=== PATIENT | female | born 1940 | race Caucasian/White ===

== ENCOUNTER → 2016-11-29 | Outpatient (CLI) | payer BC ==
[~2016-11-29] MED LIST: ANT25 PO; ASPI81TA28 PO; CHOL200010 PO; LACT1CAP6 PO; LISI-787 PO; LSN/10125 PO; MAGN250T3 PO; METO1TAB31 PO; RALO60TA12 PO
--- NOTE | 2016-11-29 16:37 | MAMMOGRAPHY REPORT ---
BILATERAL DIGITAL SCREENING MAMMOGRAM WITH CAD: 11/29/2016 CLINICAL HISTORY: Routine screening. Patient has no complaints. TECHNIQUE: Bilateral CC and MLO views were obtained. Current study was also evaluated with a Comput er Aided Detection (CAD) system. COMPARISON: Comparison is made to exams dated: 11/27/2015 mammogram, 10/07/2014 mammogram, 10/04/2013 mammogram, 10/03/2012 mammogram, and 09/27/2010 mammogram - [facility] [address] BREAST COMPOSITION: There are scattered areas of fibroglandular density in both breasts. FINDINGS: There are a few benign rim calcifications and moderate vascular calcifications in the jose sts. No suspicious mass, architectural distortion or cluster of new suspicious microcalcifications is seen. IMPRESSION: ACR BI-RADS CATEGORY 1: NEGATIVE There is no mammographic evidence of malignancy. A 1 year screening mammogram is recommended. The p atient will receive written notification of the results. Approximately 10% of breast cancers are not detected with mammography. A negative mammographic repor t should not delay biopsy if a clinically suggestive mass is present. Ximena Serna M.D. ay/:11/29/2016 14:58:16 Associate Financial Advisor: Debi Davenport, [facility] [address] letter sent: Normal 1/2 BI-RADS Code: ACR BI-RADS Category 1: Negative
== END | disposition home or self-care (01) ==
LOC: C.MAMM 09:27
PROVIDERS: ATTEND Family Medicine
DX: Z12.31 Encounter for screening mammogram for malignant neoplasm of breast (principal)

== ENCOUNTER 2017-05-06 10:11 | Emergency (ER) | payer BC ==
[~2017-05-06] VITALS: Ht 157.5 cm; Wt 60.1 kg
[~2017-05-06 10:11] MED LIST changes: -ANT25 PO; -LACT1CAP6 PO; -LISI-787 PO; -LSN/10125 PO; +METO-478 PO; -METO1TAB31 PO; -RALO60TA12 PO; +RALO60TA30 PO
[2017-05-06 10:21] VITALS: TEMP 36.7; Ht 157.5 cm; Wt 60.1 kg
[2017-05-06] MEDS ORDERED: METOCLOPRAMIDE HCL INJ 5 MG/ML 2 ML VIAL IV STA (10:50)
[2017-05-06] MEDS ORDERED: SODIUM CHLORIDE 0.9% 1000ML 1,000 ML IV STA (10:50)
--- NOTE | 2017-05-06 10:52 | EMERGENCY ROOM VISIT NOTE ---
History Report prepared by Monae: Norbert Ball Under the Supervision of: Dr. Guero Lam M.D. First contact with patient: 10:32 Chief Complaint: ABDOMINAL PAIN Stated Complaint: LOWER LEFT ABDOMINAL PAIN Nursing Triage Summary: Pain in left abdomen, started , pain 8/10. PTS Son reports pt passed out on Monday, refused to come to hospital at the time, had f/u appt with pcp, did not tell pcp about pain at that time. Pt verbalizes nausea, no vomiting. Reports since whenever she eats she immediately has to move her bowels, formed small stools. In triage pt reports she feels dizzy intermittently. Hx of colonoscopy, dx with diverticulosis in March. History of Present Illness The patient is a 76 year old female who presents to the Emergency Room with complaints of left sided upper abdominal pain that began two days ago. She rates her pain an 8/10 in severity. Per the patient's son, she passed out 1 week ago but refused to come to the hospital at that time. She was at her grandson's T-ball game for two hours. She received an ECG at her PCP office two days ago. She notes that whenever she eats, she has to pass her bowels immediately. She still has her appendix, gallbladder, and uterus. Her pain worsens with touch. She is also experiencing some nausea. She denies any vomiting or rash. She has a history of diverticulitis and a previous back surgery. Source of History: patient Onset: two days ago Position: abdomen (LUQ) Symptom Intensity: 8/10 Quality: sharp Timing: constant Modifying Factors (Worsening): other (touch) Associated Symptoms: + nausea, No vomiting, No rash Review of Systems See HPI for pertinent positives & negatives. A total of 10 systems reviewed and were otherwise negative. Past Medical & Surgical Medical Problems: (1) Chest pain (2) HTN (hypertension) (3) Scoliosis Surgical Problems: (1) History of back surgery Family History No pertinent family history Social History Smoking Status: Never Smoker Alcohol Use: none Drug Use: none Marital Status: single Housing Status: lives alone Occupation Status: retired Current/Historical Medications Scheduled Aspirin (Aspirin Ec), 81 MG PO QAM Cholecalciferol (Vitamin D), 2,000 UNIT PO QAM Hctz/Lisinopril (Lisinopril/Hctz 10/12.5 Mg), 1 TAB PO QAM Magnesium (Magnesium 250 mg), 250 MG PO QAM Raloxifene Hcl (Evista), 60 MG PO QAM Allergies Coded Allergies: Sulfa Drugs (Verified Allergy, Unknown, 05/06/17) Physical Exam Vital Signs Date Time Temp Pulse Resp B/P (MAP) Pulse Ox O2 Delivery O2 Flow Rate FiO2 05/06/17 13:50 95 18 148/88 100 Room Air 05/06/17 12:11 88 21 99 05/06/17 12:10 86 05/06/17 12:01 145/78 05/06/17 11:39 98 Room Air 05/06/17 10:21 36.7 86 18 154/92 100 Room Air Physical Exam GENERAL: Patient is a healthy-appearing well-nourished [] HEAD: Normocephalic atraumatic EYES: Ocular movements intact pupils equal and react to light OROPHARYNX mucous membranes are moist no exudates present no erythema or edema present NECK: Supple no nuchal rigidity CHEST: Good equal expansion LUNGS: Clear and equal to auscultation CARDIAC: Normal S1 and S2 ABDOMEN: Soft, exquisitely tender to LUQ with light palpation, no guarding BACK: No CVA tenderness EXTREMITIES: No pain upon palpation normal muscle strength in all groups no clubbing cyanosis or edema NEURO: Patient is following commands and answering questions appropriately. Alert and oriented x3 Cranial Nerves 2-12 grossly intact Medical Decision & Procedures ER Provider Diagnostic Interpretation: Radiology results as stated below per my review and radiologist interpretation: CHEST ONE VIEW PORTABLE CLINICAL HISTORY: CHEST PAIN dyspnea COMPARISON STUDY: 03/03/2016 FINDINGS: The bones soft tissues and hemidiaphragms are normal. The cardiomediastinal silhouette is normal. The lungs are clear. The pulmonary vasculature is normal. Pre-existing thoracolumbar stephanie stabilization procedure of the spine. IMPRESSION: No acute process Electronically signed by: Chapin Lese M.D. 05/06/2017 11:19 AM Dictated Date/Time: 05/06/2017 11:18 AM ABDOMEN AND PELVIS CT WITH IV AND ORAL CONTRAST CT DOSE: 311.06 mGy.cm HISTORY: Pain. Nausea. Pt c/o LUQ abd pain TECHNIQUE: Multiaxial CT images of the abdomen and pelvis were performed following the use of intravenous and oral contrast. COMPARISON STUDY: 03/14/2008 FINDINGS: Lung bases are clear. Findings of reconstructive type stabilization procedure's of the lumbosacral spine. Old posterior back and a postoperative change due to the bony pelvis. Liver enhances uniformly as does the spleen. Kidneys negative for mass or hydronephrosis. Mild small bowel fullness suggesting a mild nonspecific enteritis. The colonic bowel pattern is nonobstructive. Bladder is midline. IMPRESSION: 1. Mild nonspecific small bowel enteritis. 2. Otherwise no acute process of the abdomen or pelvis. 3. Unchanging postoperative changes to the thoracolumbar spine and bony pelvis. Electronically signed by: Chapin Lees M.D. 05/06/2017 1:23 PM Dictated Date/Time: 05/06/2017 1:20 PM Laboratory Results 05/06/17 11:00 Red Blood Count 3.97, Mean Corpuscular Volume 93.7, Mean Corpuscular Hemoglobin 31.7, Mean Corpuscular Hemoglobin Concent 33.9, Mean Platelet Volume 9.7, Neutrophils (%) (Auto) 73.1, Lymphocytes (%) (Auto) 17.0, Monocytes (%) (Auto) 9.2, Eosinophils (%) (Auto) 0.0, Basophils (%) (Auto) 0.5, Neutrophils # (Auto) 4.30, Lymphocytes # (Auto) 1.00, Monocytes # (Auto) 0.54, Eosinophils # (Auto) 0.00, Basophils # (Auto) 0.03 05/06/17 11:00 Test 05/06/17 10:45 05/06/17 11:00 05/06/17 14:45 Urine Color YELLOW Urine Appearance CLEAR (CLEAR) Urine pH 6.0 (4.5-7.5) Urine Specific [place]well 1.019 (1.000-1.030) Urine Protein NEG (NEG) Urine Glucose (UA) NEG (NEG) Urine Ketones NEG (NEG) Urine Occult Blood NEG (NEG) Urine Nitrite NEG (NEG) Urine Bilirubin NEG (NEG) Urine Urobilinogen NEG (NEG) Urine Leukocyte Esterase TRACE (NEG) Urine WBC (Auto) 1-5 /hpf (0-5) Urine RBC (Auto) 0-4 /hpf (0-4) Urine Hyaline Casts (Auto) 1-5 /lpf (0-5) Urine Epithelial Cells (Auto) 10-20 /lpf (0-5) Urine Bacteria (Auto) NEG (NEG) White Blood Count 5.88 K/uL (4.8-10.8) Red Blood Count 3.97 M/uL (4.2-5.4) Hemoglobin 12.6 g/dL (12.0-16.0) Hematocrit 37.2 % (37-47) Mean Corpuscular Volume 93.7 fL (80-100) Mean Corpuscular Hemoglobin 31.7 pg (25-34) Mean Corpuscular Hemoglobin Concent 33.9 g/dl (32-36) Platelet Count 266 K/uL (130-400) Mean Platelet Volume 9.7 fL (7.4-10.4) Neutrophils (%) (Auto) 73.1 % Lymphocytes (%) (Auto) 17.0 % Monocytes (%) (Auto) 9.2 % Eosinophils (%) (Auto) 0.0 % Basophils (%) (Auto) 0.5 % Neutrophils # (Auto) 4.30 K/uL (1.4-6.5) Lymphocytes # (Auto) 1.00 K/uL (1.2-3.4) Monocytes # (Auto) 0.54 K/uL (0.11-0.59) Eosinophils # (Auto) 0.00 K/uL (0-0.5) Basophils # (Auto) 0.03 K/uL (0-0.2) RDW Standard Deviation 45.0 fL (36.4-46.3) RDW Coefficient of Variation 13.0 % (11.5-14.5) Immature Granulocyte % (Auto) 0.2 % Immature Granulocyte # (Auto) 0.01 K/uL (0.00-0.02) Anion Gap 9.0 mmol/L (3-11) Est Creatinine Clear Calc Drug Dose 42.9 ml/min Estimated GFR () 72.0 Estimated GFR (Non- 62.2 BUN/Creatinine Ratio 16.3 (10-20) Calcium Level 8.5 mg/dl (8.5-10.1) Total Bilirubin 0.6 mg/dl (0.2-1) Direct Bilirubin 0.2 mg/dl (0-0.2) Aspartate Amino Transf (AST/SGOT) 24 U/L (15-37) Alanine Aminotransferase (ALT/SGPT) 22 U/L (12-78) Alkaline Phosphatase 47 U/L (45-117) Total Creatine Kinase 86 U/L (26-192) Creatine Kinase MB 1.9 ng/ml (0.5-3.6) Creatine Kinase MB Ratio 2.2 (0-3.0) Troponin I < 0.015 ng/ml (0-0.045) Total Protein 7.9 gm/dl (6.4-8.2) Albumin 3.7 gm/dl (3.4-5.0) Lipase 216 U/L (73-393) Labs reviewed by ED physician. Medications Administered Medications (Trade) Dose Ordered Sig/Kerri Route Start Time Stop Time Status Last Admin Dose Admin Sodium Chloride 1,000 ml @ 999 mls/hr Q1H1M STAT IV 05/06/17 10:50 05/06/17 11:50 DC 05/06/17 11:00 999 MLS/HR Metoclopramide HCl (Reglan Inj) 10 mg NOW STAT IV 05/06/17 10:50 05/06/17 10:52 DC 05/06/17 11:00 10 MG Famotidine (Pepcid Tab) 20 mg NOW STAT PO 05/06/17 13:44 05/06/17 13:45 DC 05/06/17 14:36 20 MG Sucralfate (Carafate Tab) 1 gm NOW STAT PO 05/06/17 13:44 05/06/17 13:45 DC 05/06/17 14:39 1 GM Cholestyramine Resin (Questran Powder Light) 4 gm NOW STAT PO 05/06/17 13:51 05/06/17 13:52 DC 05/06/17 14:36 4 GM Al Hydroxide/Mg Hydroxide (Maalox Susp) 30 ml STK-MED ONCE .ROUTE 05/06/17 14:31 05/06/17 14:32 DC 05/06/17 14:37 30 ML Lidocaine HCl (Viscous Lidocaine 2% Soln) 20 ml STK-MED ONCE .ROUTE 05/06/17 14:31 05/06/17 14:32 DC 05/06/17 14:37 20 ML ECG Indication: abdominal pain Rate (beats per minute): 82 Rhythm: normal sinus Findings: no acute ischemic change, no ectopy, other (Old inferior infarct) Comparison ECG Date: 03 March 2016 Change: no significant change ED Course 1032: Past medical records reviewed. The patient was evaluated in room B11. A complete history and physical examination was performed. 1050: Ordered Reglan Inj 10 mg IV, Sodium Chloride 1000 ml @ 999 mls/hr IV 1344: Ordered Carafate Tab 1 gm PO, Pepcid Tab 20 mg PO, Gi Cocktail 24 ml PO 1351: Ordered Cholestyramine 4 gm PO 1431: Ordered Lidocaine HCl 20 ml .ROUTE, Maalox Susp 30 ml .ROUTE 1437: Upon reexamination the patient is resting. I discussed results and treatment plan with the patient. She verbalizes agreement and understanding. The patient is ready for discharge. Medical Decision Differential diagnosis: Etiologies such as appendicitis, diverticulitis, PUD, biliary pathology, UTI, pancreatitis, obstruction, mesenteric ischemia, aortic pathology, infections, inflammatory bowel disease, renal colic, as well as others were entertained. Medication Reconciliation: I attest that I have personally reviewed the patient' s current medication list Blood Pressure Screening: Patient was found to have an elevated blood pressure and was referred to their primary care doctor for recheck and further treatment This is an a 76-year-old female who presents emergency department complaining of diarrhea as well as abdominal pain. Serial abdominal examinations were performed on the patient in the emergency department and at no time did the patient exhibited a surgical abdomen. She has minimal abdominal tenderness on examination. She also does not have an elevation in her white blood count, has a normal renal profile, has a normal liver profile. Based on these findings I felt that the patient could likely go home. She was able to provide a stool sample and I stressed the fact that we could call in antibiotics of stool throughout something that could be treated. I stressed to the patient to stop taking dairy and encouraged use of probiotic tablets. Patient and family were in agreement with the treatment plan. Impression Primary Impression: Diarrhea Scribe Attestation The scribe's documentation has been prepared under my direction and personally reviewed by me in its entirety. I confirm that the note above accurately reflects all work, treatment, procedures, and medical decision making performed by me. Departure Information Dispostion Home / Self-Care Referrals Kg Green M.D. (PCP) Forms HOME CARE DOCUMENTATION FORM, IMPORTANT VISIT INFORMATION, School Instructions, Work Instructions Patient Instructions ED Diet Vomiting Diarrhea, ED Gastroenteritis Report Pend, ED Vomiting Diarrhea Nonspecific Ad, Hypertension Dc, My [facility] Additional Instructions Avoid dairy Use probiotics You were found to have an elevated blood pressure today (>120 sytolic or >90 diastolic). Per medicare guidelines, you need to follow up with this blood pressure screening with your Primary Care Physician (PCP). For a new PCP call [phone]. Culture results are usually available in approx 48 hours You have been examined and treated today on an emergency basis only. This is not a substitute for, or an effort to provide, complete comprehensive medical care. It is impossible to recognize and treat all injuries or illnesses in a single emergency department visit. It is therefore important that you follow up closely with Dr Green. Call as soon as possible for an appointment. Thank you for your time and consideration. I look forward to speaking with you again soon. Please don't hesitate to call us if you have any questions. Problem Qualifiers Primary Impression: Diarrhea Diarrhea type: unspecified type Qualified Codes: R19.7 - Diarrhea, unspecified
[2017-05-06] MEDS ORDERED: LSN/10125 PO (10:54)
[2017-05-06] MEDS ORDERED: OPTIRAY 320 IV PRN (11:00)
[2017-05-06 11:17] LABS: BASO % 0.5 %; BASO ABS # 0.03 K/uL (0-0.2); COMPLETE YES; HEMATOCRIT 37.2 % (37-47); IG% 0.2 %; MEAN CELL VOLUME 93.7 fL (80-100); MEAN CORPUSCULAR HEMOGLOBIN 31.7 pg (25-34); MEAN CORPUSCULAR HGB CONC 33.9 g/dl (32-36); MEAN PLATELET VOLUME 9.7 fL (7.4-10.4); MONO % 9.2 %; NEUT % 73.1 %; PLATELET COUNT 266 K/uL (130-400); RED BLOOD COUNT 3.97 M/uL (4.2-5.4); WHITE BLOOD COUNT 5.88 K/uL (4.8-10.8)
--- NOTE | 2017-05-06 11:20 | DIAGNOSTIC IMAGING REPORT ---
CHEST ONE VIEW PORTABLE CLINICAL HISTORY: CHEST PAIN dyspnea COMPARISON STUDY: 03/03/2016 FINDINGS: The bones soft tissues and hemidiaphragms are normal. The cardiomediastinal silhouette is normal. The lungs are clear. The pulmonary vasculature is normal. Pre-existing thoracolumbar stephanie stabilization procedure of the spine. IMPRESSION: No acute process Electronically signed by: Chapin Lees M.D. 05/06/2017 11:19 AM Dictated Date/Time: 05/06/2017 11:18 AM
[2017-05-06 11:39] VITALS: O2SAT 98
[2017-05-06 11:40] LABS: ALT/SGPT 22 U/L (12-78); AST/SGOT 24 U/L (15-37); BLOOD UREA NITROGEN 15 mg/dl (7-18); BUN/CREATININE RATIO 16.3 (10-20); CALCIUM 8.5 mg/dl (8.5-10.1); CARBON DIOXIDE 26 mmol/L (21-32); CHLORIDE 96 mmol/L (98-107); CREATININE 0.91 mg/dl (0.60-1.20); GLUCOSE 106 mg/dl (70-99); POTASSIUM 4.1 mmol/L (3.5-5.1); SODIUM 131 mmol/L (136-145)
[2017-05-06 11:46] LABS: ALKALINE PHOSPHATASE 47 U/L (45-117); CKMB/CK RATIO 2.2 (0-3.0)
--- NOTE | 2017-05-06 13:24 | DIAGNOSTIC IMAGING REPORT ---
ABDOMEN AND PELVIS CT WITH IV AND ORAL CONTRAST CT DOSE: 311.06 mGy.cm HISTORY: Pain. Nausea. Pt c/o LUQ abd pain TECHNIQUE: Multiaxial CT images of the abdomen and pelvis were performed following the use of intravenous and oral contrast. COMPARISON STUDY: 03/14/2008 FINDINGS: Lung bases are clear. Findings of reconstructive type stabilization procedure's of the lumbosacral spine. Old posterior back and a postoperative change due to the bony pelvis. Liver enhances uniformly as does the spleen. Kidneys negative for mass or hydronephrosis. Mild small bowel fullness suggesting a mild nonspecific enteritis. The colonic bowel pattern is nonobstructive. Bladder is midline. IMPRESSION: 1. Mild nonspecific small bowel enteritis. 2. Otherwise no acute process of the abdomen or pelvis. 3. Unchanging postoperative changes to the thoracolumbar spine and bony pelvis. Electronically signed by: Chapin Lees M.D. 05/06/2017 1:23 PM Dictated Date/Time: 05/06/2017 1:20 PM
[2017-05-06 13:28] LABS: URINE APPEARANCE CLEAR (CLEAR); URINE BILIRUBIN NEG (NEG); URINE COLOR YELLOW; URINE NITRITE NEG (NEG); URINE SPECIFIC GRAVITY 1.019 (1.000-1.030); UROBILINOGEN NEG (NEG); ZZUR CULT IF INDIC CLEAN CATCH NO
[2017-05-06 13:31] LABS: MANUAL MICROSCOPIC REQUIRED? NO; REVIEW REQ? NO
[2017-05-06] MEDS ORDERED: SUCRALFATE 1 GM TAB PO STA (13:44)
[2017-05-06] MEDS ORDERED: FAMOTIDINE 20 MG TAB PO STA (13:44)
[2017-05-06] MEDS ORDERED: GI COCKTAIL PO STA (13:44)
[2017-05-06 13:50] VITALS: BP 148/88; PULSE 95; O2SAT 100
[2017-05-06] MEDS ORDERED: CHOLESTYRAMINE LIGHT 4 GM PKT PO STA (13:51)
[2017-05-06] MEDS ORDERED: LIDOCAINE HCL 2% VISC SOLN 20 ML UDC ONE (14:31)
[2017-05-06] MEDS ORDERED: ALUMINUM/MAGNESIUM SUSP 30 ML UDC ONE (14:31)
[2017-05-16] MEDS ORDERED: ANT25 PO (12:23)
[2017-05-16 15:18] LABS: NOROVIRUS RNA** TC 19098X NOT DETECTED; O&P SOURCE OTHER-STOOL
== END 2017-05-06 14:45 | disposition home or self-care (01) ==
LOC: C.EDB 10:12
DX: R19.7 Diarrhea, unspecified (principal); I10 Essential (primary) hypertension; M41.9 Scoliosis, unspecified; Z79.82 Long term (current) use of aspirin; Z79.899 Other long term (current) drug therapy

== ENCOUNTER 2017-05-14 14:42 | Inpatient (IN) | payer BC, OTHER ==
[~2017-05-14] VITALS: Ht 157.5 cm; Wt 59.5 kg
[~2017-05-14 14:42] MED LIST changes: +LSN/10125 PO; -METO-478 PO
[2017-05-14] MEDS ORDERED: ONDANSETRON INJ 2 MG/ML 2 ML VIAL IV STA (15:12)
[2017-05-14] MEDS ORDERED: MoRPHine SULFATE 4 MG/ML 1 ML CARP\\VIAL IV STA (15:12)
[2017-05-14] MEDS ORDERED: SODIUM CHLORIDE 0.9% 1000ML 1,000 ML IV STA (15:12)
[2017-05-14] MEDS ORDERED: LISI-787 PO (15:16)
[2017-05-14] MEDS ORDERED: LACT1CAP6 PO (15:17)
[2017-05-14] MEDS ORDERED: OPTIRAY 320 IV PRN (15:30)
[2017-05-14 15:37] LABS: BASO % 0.2 %; BASO ABS # 0.01 K/uL (0-0.2); COMPLETE YES; EOS % 0.2 %; HEMATOCRIT 36.3 % (37-47); IG% 0.2 %; LYMPH % 19.7 %; LYMPH ABS # 1.23 K/uL (1.2-3.4); MEAN CELL VOLUME 92.6 fL (80-100); MEAN CORPUSCULAR HEMOGLOBIN 31.9 pg (25-34); MEAN CORPUSCULAR HGB CONC 34.4 g/dl (32-36); MEAN PLATELET VOLUME 9.5 fL (7.4-10.4); MONO % 11.9 %; NEUT % 67.8 %; PLATELET COUNT 276 K/uL (130-400); RED BLOOD COUNT 3.92 M/uL (4.2-5.4); WHITE BLOOD COUNT 6.24 K/uL (4.8-10.8)
[2017-05-14 15:56] LABS: BUN/CREATININE RATIO 11.2 (10-20); CALCIUM 8.7 mg/dl (8.5-10.1); CREATININE 0.93 mg/dl (0.60-1.20); POTASSIUM 3.8 mmol/L (3.5-5.1)
--- NOTE | 2017-05-14 17:26 | DIAGNOSTIC IMAGING REPORT ---
ABDOMEN AND PELVIS CT WITH IV CONTRAST CT DOSE: 280.98 mGy.cm HISTORY: Pain ll. Abd pain TECHNIQUE: Multiaxial CT images of the abdomen and pelvis were performed following the use of intravenous contrast. COMPARISON STUDY: 05/06/2017 FINDINGS: Stable postoperative changes of the thoracolumbar spine. This is unaltered from the prior study. Lung bases are clear. Liver spleen and pancreas are uniform throughout. Kidneys negative for hydronephrosis. The adrenal glands are unremarkable. There is a small hiatal hernia. Bowel pattern is nonobstructive. No significant bowel wall thickening. No significant free fluid within the pelvic cul-de-sac. Several sigmoid diverticuli with no evidence for acute diverticulitis. IMPRESSION: 1. Mild chronic sigmoid diverticulosis. 2. No evidence for diverticulitis. 3. Otherwise negative study of the abdomen and pelvis. 4. Stable postoperative changes to the thoracolumbar spine. Electronically signed by: Chapin Lees M.D. 05/14/2017 5:25 PM Dictated Date/Time: 05/14/2017 5:22 PM
[2017-05-14 17:47] LABS: URINE APPEARANCE CLEAR (CLEAR); URINE BILIRUBIN NEG (NEG); URINE COLOR YELLOW; URINE EPITHELIAL CELL AUTO 0-5 /lpf (0-5); URINE NITRITE NEG (NEG); URINE PH 7.5 (4.5-7.5); URINE SPECIFIC GRAVITY 1.008 (1.000-1.030); UROBILINOGEN NEG (NEG); ZZUR CULT IF INDIC CLEAN CATCH NO
[2017-05-14 17:48] LABS: MANUAL MICROSCOPIC REQUIRED? NO; REVIEW REQ? NO
[2017-05-14] MEDS ORDERED: ONDANSETRON INJ 2 MG/ML 2 ML VIAL IV PRN (18:15)
[2017-05-14] MEDS ORDERED: ACETAMINOPHEN 325 MG TAB PO PRN (18:15)
[2017-05-14] MEDS ORDERED: MAGNESIUM HYDROXIDE SUSP 30 ML UDC PO PRN (18:15)
[2017-05-14] MEDS ORDERED: SODIUM BICARBONATE 650 MG TAB PO ONE (18:15)
--- NOTE | 2017-05-14 18:24 | EMERGENCY ROOM VISIT NOTE ---
History Report prepared by Monae: Verna Finn Under the Supervision of: Lennox FreitasO. First contact with patient: 14:58 Chief Complaint: ABDOMINAL PAIN Stated Complaint: STOMACH ACHE FOR 3 DAYS History of Present Illness The patient is a 76 year old female who presents to the Emergency Room with complaints of constant abdominal pain beginning 3 days ago. The patient sates that she was seen here 1 week ago for similar pain but they did not find anything. She states that her pain went away but came back 3 days ago and she is not sure why. She reports that she has taken Tylenol without relief of her symptoms. She complains of nausea and burping after eating. She denies any vomiting, urinary symptoms, chest pain, shortness of breath, fever, headache, diarrhea, changes in eating or drinking. The patient states that her last normal BM was a few hours ago. She notes that she has no previous abdominal surgeries. Patient does admit to feeling dizzy since this past Monday along with week. Her dizziness is improved significantly but still presents today. No weakness or numbness in arms or legs. Source of History: patient Onset: 3 days ago Position: abdomen Timing: constant Modifying Factors (Worsening): other (none) Modifying Factors (Relieving): other (none) Associated Symptoms: + nausea, No fevers, No headache, No chest pain, No SOB , No vomiting, No diarrhea, No urinary symptoms Note: She complains of burping after eating. Review of Systems See HPI for pertinent positives & negatives. A total of 10 systems reviewed and were otherwise negative. Past Medical & Surgical Medical Problems: (1) Chest pain (2) HTN (hypertension) (3) Hyponatremia (4) Scoliosis Surgical Problems: (1) History of back surgery Family History No pertinent family history Social History Smoking Status: Never Smoker Alcohol Use: none Drug Use: none Marital Status: single Housing Status: lives alone Occupation Status: retired Current/Historical Medications Scheduled Aspirin (Aspirin Ec), 81 MG PO Q2D Cholecalciferol (Vitamin D), 2,000 UNIT PO QAM Lactobacillus (Probiotic), 1 CAP PO DAILY Lisinopril/Hctz (Zestoretic 20MG/12.5MG), 1 TAB PO QAM Magnesium (Magnesium 250 mg), 250 MG PO QAM Raloxifene Hcl (Evista), 60 MG PO QAM Allergies Coded Allergies: Sulfa Drugs (Verified Allergy, Unknown, 05/14/17) Physical Exam Vital Signs Date Time Temp Pulse Resp B/P (MAP) Pulse Ox O2 Delivery O2 Flow Rate FiO2 05/14/17 17:06 67 16 168/95 99 Room Air 05/14/17 14:57 36.4 88 18 172/95 100 Room Air Physical Exam GENERAL: sitting up in bed, disheveled, alert, well appearing, well nourished, no distress, non-toxic EYE EXAM: normal conjunctiva OROPHARYNX: no exudate, no erythema, lips, buccal mucosa, and tongue normal and mucous membranes are moist NECK: supple, no nuchal rigidity, no adenopathy, non-tender LUNGS: Clear to auscultation. Normal chest wall mechanics HEART: no murmurs, S1 normal and S2 normal ABDOMEN: abdomen soft, minimal tenderness in LLQ, normo-active bowel sounds, no masses, no rebound or guarding. BACK: Back is symmetrical on inspection and there is no deformity, no midline tenderness, no CVA tenderness. SKIN: no rashes and no bruising UPPER EXTREMITIES: upper extremities are grossly normal. LOWER EXTREMITIES: No pitting edema. NEURO EXAM: Normal sensorium, cranial nerves II-XII grossly intact, normal speech, no gross weakness of arms, no gross weakness of legs. Medical Decision & Procedures ER Provider Diagnostic Interpretation: Radiology results as stated below per my review and the radiologist's interpretation: ABDOMEN AND PELVIS CT WITH IV CONTRAST FINDINGS: Stable postoperative changes of the thoracolumbar spine. This is unaltered from the prior study. Lung bases are clear. Liver spleen and pancreas are uniform throughout. Kidneys negative for hydronephrosis. The adrenal glands are unremarkable. There is a small hiatal hernia. Bowel pattern is nonobstructive. No significant bowel wall thickening. No significant free fluid within the pelvic cul-de-sac. Several sigmoid diverticuli with no evidence for acute diverticulitis. IMPRESSION: 1. Mild chronic sigmoid diverticulosis. 2. No evidence for diverticulitis. 3. Otherwise negative study of the abdomen and pelvis. 4. Stable postoperative changes to the thoracolumbar spine. Electronically signed by: Chapin Lees M.D. 05/14/2017 5:25 PM Dictated Date/Time: 05/14/2017 5:22 PM Laboratory Results 05/14/17 15:25 Red Blood Count 3.92, Mean Corpuscular Volume 92.6, Mean Corpuscular Hemoglobin 31.9, Mean Corpuscular Hemoglobin Concent 34.4, Mean Platelet Volume 9.5, Neutrophils (%) (Auto) 67.8, Lymphocytes (%) (Auto) 19.7, Monocytes (%) (Auto) 11.9, Eosinophils (%) (Auto) 0.2, Basophils (%) (Auto) 0.2, Neutrophils # (Auto ) 4.24, Lymphocytes # (Auto) 1.23, Monocytes # (Auto) 0.74, Eosinophils # (Auto ) 0.01, Basophils # (Auto) 0.01 05/14/17 15:25 Test 05/14/17 15:25 05/14/17 17:20 White Blood Count 6.24 K/uL (4.8-10.8) Red Blood Count 3.92 M/uL (4.2-5.4) Hemoglobin 12.5 g/dL (12.0-16.0) Hematocrit 36.3 % (37-47) Mean Corpuscular Volume 92.6 fL (80-100) Mean Corpuscular Hemoglobin 31.9 pg (25-34) Mean Corpuscular Hemoglobin Concent 34.4 g/dl (32-36) Platelet Count 276 K/uL (130-400) Mean Platelet Volume 9.5 fL (7.4-10.4) Neutrophils (%) (Auto) 67.8 % Lymphocytes (%) (Auto) 19.7 % Monocytes (%) (Auto) 11.9 % Eosinophils (%) (Auto) 0.2 % Basophils (%) (Auto) 0.2 % Neutrophils # (Auto) 4.24 K/uL (1.4-6.5) Lymphocytes # (Auto) 1.23 K/uL (1.2-3.4) Monocytes # (Auto) 0.74 K/uL (0.11-0.59) Eosinophils # (Auto) 0.01 K/uL (0-0.5) Basophils # (Auto) 0.01 K/uL (0-0.2) RDW Standard Deviation 42.5 fL (36.4-46.3) RDW Coefficient of Variation 12.5 % (11.5-14.5) Immature Granulocyte % (Auto) 0.2 % Immature Granulocyte # (Auto) 0.01 K/uL (0.00-0.02) Anion Gap 10.0 mmol/L (3-11) Est Creatinine Clear Calc Drug Dose 42.0 ml/min Estimated GFR () 70.2 Estimated GFR (Non- 60.5 BUN/Creatinine Ratio 11.2 (10-20) Calcium Level 8.7 mg/dl (8.5-10.1) Total Bilirubin 0.4 mg/dl (0.2-1) Direct Bilirubin 0.2 mg/dl (0-0.2) Aspartate Amino Transf (AST/SGOT) 23 U/L (15-37) Alanine Aminotransferase (ALT/SGPT) 24 U/L (12-78) Alkaline Phosphatase 49 U/L (45-117) Total Protein 8.1 gm/dl (6.4-8.2) Albumin 3.8 gm/dl (3.4-5.0) Lipase 257 U/L (73-393) Urine Color YELLOW Urine Appearance CLEAR (CLEAR) Urine pH 7.5 (4.5-7.5) Urine Specific [place] 1.008 (1.000-1.030) Urine Protein NEG (NEG) Urine Glucose (UA) NEG (NEG) Urine Ketones NEG (NEG) Urine Occult Blood NEG (NEG) Urine Nitrite NEG (NEG) Urine Bilirubin NEG (NEG) Urine Urobilinogen NEG (NEG) Urine Leukocyte Esterase NEG (NEG) Urine WBC (Auto) 1-5 /hpf (0-5) Urine RBC (Auto) 0-4 /hpf (0-4) Urine Hyaline Casts (Auto) 0 /lpf (0-5) Urine Epithelial Cells (Auto) 0-5 /lpf (0-5) Urine Bacteria (Auto) NEG (NEG) Laboratory results per my review. Medications Administered Medications (Trade) Dose Ordered Sig/Kerri Route Start Time Stop Time Status Last Admin Dose Admin Sodium Chloride 1,000 ml @ 999 mls/hr Q1H1M STAT IV 05/14/17 15:12 05/14/17 16:12 DC 05/14/17 15:12 999 MLS/HR Ondansetron HCl (Zofran Inj) 4 mg NOW STAT IV 05/14/17 15:12 05/14/17 15:14 DC 05/14/17 15:36 4 MG Morphine Sulfate (MoRPHine SULFATE INJ) 4 mg NOW STAT IV 05/14/17 15:12 05/14/17 15:14 DC 05/14/17 15:36 4 MG ED Course ED COURSE: Vital signs were reviewed and showed hypertension The patients medical record was reviewed The above diagnostic studies were performed and reviewed. ED treatments and interventions as stated above. 1458: The patient was evaluated in room A11B. A complete history and physical examination was performed. 1512: Morphine Sulfate 4mg IV, Zofran Inj 4mg IV, Sodium Chloride 1000 ml @ 999 mls/hr IV. 1521: The patient had negative stool cultures on the for C-Diff, shigella and salmonella. 1602: I reevaluated the patient. Her pain is improved. 1659: I reevaluated the patient. She is doing well. 1702: I reevaluated the patient. She is doing well. 1739: I reviewed the patient's case with Dr. Bunch's of [facility]. She will evaluate the patient for further management. 1754: I spoke to the patient. She states that she has been dizzy over the last week and today she has been intermittently dizzy. She notes that since Monday she has increased the amount of water she drinks to 6 bottles a day and her Lisinopril was increased recently. 1759: Upon reevaluation, the patient is doing well.I discussed my findings with the patient and she understands and agrees with the treatment plan. Based on the patients age, coexisting illnesses, exam and lab findings the decision to treat as an inpatient was made. The patient remained stable while under my care. The patient will be evaluated for further management. Medical Decision Differential diagnoses includes but is not limited to gastritis, peptic ulcer disease, GERD, gallbladder disease, pancreatitis, small bowel obstruction, acute coronary syndrome, pericarditis, ischemic bowel, irritable bowel disease, irritable bowel syndrome, appendicitis, diverticulitis, malignancy, hernia, urinary tract infection, torsion, perforation, trauma, infectious. Medication Reconciliation: I attest that I have personally reviewed the patient' s current medication list. Blood pressure screening: Patient was found to have an elevated blood pressure and was referred to their primary doctor for recheck and further treatment. Patient is a 76-year-old female who presents the ER for left lower quadrant abdominal pain associated with weakness. Dizziness has been intermittent but has improved significantly today. CT of abdomen and pelvis was negative. CBC and BMP are remarkable for a sodium of 125. I do favor this is likely secondary to her increased fluid intake which was recommended by her primary care doctor. She also increased her lisinopril as well per PCP. UA was negative. Patient was given a bolus normal saline along with morphine and admitted to internal medicine for workup of her left lower quadrant pain associated with weakness and hyponatremia. Consults Time Called: 173 Consulting Physician: Dr. Persaud - [facility] Returned Call: [phone] I reviewed the patient's case with Dr. Bunch's of [facility]. She will evaluate the patient for further management. Impression Primary Impression: LLQ abdominal pain Additional Impressions: Hyponatremia Dizzy Scribe Attestation The scribe's documentation has been prepared under my direction and personally reviewed by me in its entirety. I confirm that the note above accurately reflects all work, treatment, procedures, and medical decision making performed by me. Departure Information Dispostion Being Evaluated By Hospitalist Referrals Kg Green M.D. (PCP) Patient Instructions [facility] Problem Qualifiers
--- NOTE | 2017-05-14 18:37 | History and Physical ---
History & Physical Date & Time of Service: May 14, 2017 at 18:16 Chief Complaint: Stomach Ache For 3 Days Primary Care Physician: Kg Green M.D. History of Present Illness Source: patient, family 76 y/o F c/o abd pain. Pt initially states that she has been having L sided abd pain "on and off for a few days". Family is present and states that she is a minimizer of her sx and reveals a much different story. Pt apparently has been having diarrhea for about 2-3 weeks. On 04/29, she passed out sitting up. EMS was called and by the time they arrived, pt had regained consciousness. Family reports her VS were "ok" and despite their recommendation that she go to the ED, she declined. Apparently that day pt had been out in the sun for several hours for a grandson's baseball game, had not drank much water, and just prior to passing out had had a single alcoholic beverage, so there was thought at the time that she was dehydrated given the events of the day plus the ongoing diarrhea. Pt was seen by her PCP following this event and he noted that her weight was down. She did not alert him to the diarrhea she had been having and apparently he thought that her passing out may have been due to her lisinopril dosing in the setting of weight loss. He decreased it from 20mg QD to 10mg QD. Pt was seen in the ED on 05/06 for dizziness, abd pain, and ongoing diarrhea. She was found to have elevated BP and her lisinopril was increased back to 20mg. She states that the dizziness is better now, but still at times. She takes her BP at home and it was 145/81 this AM and 158 systolic yesterday AM, both were pre-lisinopril. She is still having diarrhea, but feels this is also a bit better. She is not certain what is helping. Cdiff and stool cx neg. She has been taking a probiotic. She feels bloated since the onset of diarrhea. She has been nauseated at time, but no emesis. She feels she has been eating well despite this, but decreased fluid intake. Due to her HTN hx, she does not add salt to her food and tries to avoid salt in general. She is feeling better s/p IVF, zofran, morphine. Pt denies fever, SOB, chest pain, LE pain or swelling. Past Medical/Surgical History Medical Problems: (1) HTN (hypertension) Status: Chronic (2) Scoliosis Status: Chronic Surgical Problems: (1) History of back surgery Status: Resolved Family History No pertinent family history Social History Smoking Status: Never Smoker Drug Use: none Marital Status: single Occupational Status: retired Immunizations History of Influenza Vaccine: No History of Tetanus Vaccine?: Yes Tetanus Immunization Date: Jul 18, 2007 History of Pneumococcal: No History of Hepatitis B Vaccine: No Multi-Drug Resistant Organisms History of MDRO: No Allergies Coded Allergies: Sulfa Antibiotics (Verified Allergy, Unknown, Unknown reaction, 05/14/17) Home Medications Scheduled Aspirin (Aspirin Ec), 81 MG PO Q2D Cholecalciferol (Vitamin D), 2,000 UNIT PO QAM Lactobacillus (Probiotic), 1 CAP PO DAILY Lisinopril/Hctz (Zestoretic 20MG/12.5MG), 1 TAB PO QAM Magnesium (Magnesium 250 mg), 250 MG PO QAM Raloxifene Hcl (Evista), 60 MG PO QAM Review of Systems Reviewed and negative Physical Exam Vital Signs Date Time Temp Pulse Resp B/P (MAP) Pulse Ox O2 Delivery O2 Flow Rate FiO2 05/14/17 17:06 67 16 168/95 99 Room Air 05/14/17 14:57 36.4 88 18 172/95 100 Room Air General Appearance: WD/WN, no apparent distress Head: normocephalic, atraumatic Eyes: normal inspection, sclerae normal Respiratory/Chest: normal breath sounds, no respiratory distress Cardiovascular: regular rate, rhythm, no edema Abdomen/GI: non tender, soft Extremities/Musculoskelatal: no calf tenderness, no pedal edema Neurologic/Psych: alert, normal mood/affect, oriented x 3 Skin: normal color, warm/dry Diagnostics Laboratory Results Results Past 24 Hours Test 05/14/17 15:25 05/14/17 17:20 Range/Units White Blood Count 6.24 4.8-10.8 K/uL Red Blood Count 3.92 4.2-5.4 M/uL Hemoglobin 12.5 12.0-16.0 g/dL Hematocrit 36.3 37-47 % Mean Corpuscular Volume 92.6 80-100 fL Mean Corpuscular Hemoglobin 31.9 25-34 pg Mean Corpuscular Hemoglobin Concent 34.4 32-36 g/dl Platelet Count 276 130-400 K/uL Mean Platelet Volume 9.5 7.4-10.4 fL Neutrophils (%) (Auto) 67.8 % Lymphocytes (%) (Auto) 19.7 % Monocytes (%) (Auto) 11.9 % Eosinophils (%) (Auto) 0.2 % Basophils (%) (Auto) 0.2 % Neutrophils # (Auto) 4.24 1.4-6.5 K/uL Lymphocytes # (Auto) 1.23 1.2-3.4 K/uL Monocytes # (Auto) 0.74 0.11-0.59 K/uL Eosinophils # (Auto) 0.01 0-0.5 K/uL Basophils # (Auto) 0.01 0-0.2 K/uL RDW Standard Deviation 42.5 36.4-46.3 fL RDW Coefficient of Variation 12.5 11.5-14.5 % Immature Granulocyte % (Auto) 0.2 % Immature Granulocyte # (Auto) 0.01 0.00-0.02 K/uL Sodium Level 125 136-145 mmol/L Potassium Level 3.8 3.5-5.1 mmol/L Chloride Level 90 98-107 mmol/L Carbon Dioxide Level 25 21-32 mmol/L Anion Gap 10.0 3-11 mmol/L Blood Urea Nitrogen 10 7-18 mg/dl Creatinine 0.93 0.60-1.20 mg/dl Est Creatinine Clear Calc Drug Dose 42.0 ml/min Estimated GFR () 70.2 Estimated GFR (Non- 60.5 BUN/Creatinine Ratio 11.2 10-20 Random Glucose 119 70-99 mg/dl Calcium Level 8.7 8.5-10.1 mg/dl Total Bilirubin 0.4 0.2-1 mg/dl Direct Bilirubin 0.2 0-0.2 mg/dl Aspartate Amino Transf (AST/SGOT) 23 15-37 U/L Alanine Aminotransferase (ALT/SGPT) 24 12-78 U/L Alkaline Phosphatase 49 45-117 U/L Total Protein 8.1 6.4-8.2 gm/dl Albumin 3.8 3.4-5.0 gm/dl Lipase 257 73-393 U/L Urine Color YELLOW Urine Appearance CLEAR CLEAR Urine pH 7.5 4.5-7.5 Urine Specific [place] 1.008 1.000-1.030 Urine Protein NEG NEG Urine Glucose (UA) NEG NEG Urine Ketones NEG NEG Urine Occult Blood NEG NEG Urine Nitrite NEG NEG Urine Bilirubin NEG NEG Urine Urobilinogen NEG NEG Urine Leukocyte Esterase NEG NEG Urine WBC (Auto) 1-5 0-5 /hpf Urine RBC (Auto) 0-4 0-4 /hpf Urine Hyaline Casts (Auto) 0 0-5 /lpf Urine Epithelial Cells (Auto) 0-5 0-5 /lpf Urine Bacteria (Auto) NEG NEG Diagnostic Radiology CT AP: 1. Mild chronic sigmoid diverticulosis. 2. No evidence for diverticulitis. 3. Otherwise negative study of the abdomen and pelvis. 4. Stable postoperative changes to the thoracolumbar spine. Impression Assessment and Plan 76 y/o F who was admitted on 05/14 for abd pain Abd pain: Likely related to cramping from diarrhea and hypoNa CT AP neg for acute Improved with IVF, zofran, morphine Uncertain cause for diarrhea, but cdiff and stool cx neg Improving with probiotics, monitor UA neg, WBC WNL HypoNa: salt tab and monitor HTN: continue home meds Other: Full code Reg diet SCDs for DVT proph Level of Care Med/Surg Resuscitation Status FULL RESUSCITATION VTE Prophylaxis VTE Risk Assessment Done? Y/N: Yes Risk Level: Low
[2017-05-14 18:43] VITALS: O2SAT 100
[2017-05-14 23:30] VITALS: BP 156/87; PULSE 74; TEMP 36.5; Ht 157.5 cm; Wt 59.5 kg
[2017-05-14 23:44] VITALS: BP 115/74; PULSE 67; TEMP 36.7; O2SAT 99
[2017-05-15 07:31] VITALS: BP 126/85; PULSE 64; TEMP 36.8; O2SAT 100
[2017-05-15] MEDS: CHOLECALCIFEROL 1000 INTER.UNIT TAB PO SCH (07:32)
[2017-05-15] MEDS: LACTOBACILLUS ACIDOPHILUS (FLORANEX) TAB PO SCH (07:33)
[2017-05-15] MEDS: LISINOPRIL/HCTZ 20/12.5MG TAB PO SCH (07:33)
[2017-05-15] MEDS: MAGNESIUM OXIDE 400 MG TAB PO SCH (07:33)
[2017-05-15] MEDS: RALOXIFENE 60 MG TAB PO SCH (07:33)
[2017-05-15 08:16] LABS: BUN/CREATININE RATIO 10.6 (10-20); CALCIUM 8.5 mg/dl (8.5-10.1); CREATININE 0.85 mg/dl (0.60-1.20); POTASSIUM 4.6 mmol/L (3.5-5.1)
[2017-05-15] MEDS ORDERED: MECLIZINE HCL 25 MG TAB PO ONE (10:00)
[2017-05-15] MEDS ORDERED: DICYCLOMINE HCL 10 MG CAP PO PRN (11:30)
[2017-05-15] MEDS ORDERED: DICYCLOMINE HCL 10 MG CAP PO ONE (12:00)
--- NOTE | 2017-05-15 13:42 | Hospitalist Progress Note ---
Hospitalist Progress Note Date of Service May 15, 2017. (Awilda Dunham ., PA-C) Subjective Pt evaluation today including: conversation w/ patient, conversation w/ family (spoke with daughter on the phone to update on plan), physical exam, chart review, lab review, review of inpatient medication list Patient reports not feeling well. She states that she was experiencing dizziness and vertigo earlier this morning. She received a dose of Antivert which did help the vertigo, but she still reports feeling dizziness, particularly with quick movement of her head or changes in position. She also stated that she felt short of breath, palpitations and nausea when she was having the vertigo. She states that the shortness of breath and palpitations have since resolved, but she still feels slightly nauseous. She was still able to eat her lunch without difficulties. She also states that her abdominal pain and cramping is starting to come back. She could not quantify the intensity of the discomfort, but states that she feels a crampy pain in her upper abdomen and feels bloated. She feels that she may have to have a bowel movement soon. She denies any diarrhea today, stating she has not moved her bowels yet today. The patient denies fevers, chills, sweats, chest pain, claudication, cough, wheezing, vomiting, dysuria, hematuria, urinary retention, paralysis, weakness, numbness and tingling. Additional Comments: See HPI for pertinent positives and negatives. All other systems reviewed and negative. (Awilda Dunham ., PA-C) Objective Vital Signs Date Time Temp Pulse Resp B/P (MAP) Pulse Ox O2 Delivery O2 Flow Rate FiO2 05/15/17 08:00 Room Air 05/15/17 07:31 36.8 64 18 126/85 (99) 100 Room Air 05/14/17 23:44 36.7 67 18 115/74 (88) 99 Room Air 05/14/17 23:30 36.5 74 20 156/87 Room Air 05/14/17 18:43 70 18 117/86 100 Room Air 05/14/17 17:06 67 16 168/95 99 Room Air 05/14/17 14:57 36.4 88 18 172/95 100 Room Air (Awilda Dunham ., PA-C) Physical Exam General Appearance: WD/WN, no apparent distress Eyes: normal inspection, EOMI, + pertinent finding (left pupil more dilated than right, pt states this is chronic. both pupils reactive to light) ENT: normal ENT inspection, hearing grossly normal, pharynx normal Neck: supple, no JVD, trachea midline Respiratory/Chest: lungs clear, normal breath sounds, no respiratory distress Cardiovascular: regular rate, rhythm, no gallop, no murmur Abdomen: normal bowel sounds, soft, + tenderness (upper quadrants mildly TTP) Extremities: non-tender, normal inspection, no pedal edema Neurologic/Psychiatric: alert, normal mood/affect, oriented x 3 Skin: normal color, warm/dry, no rash (Awilda Dunham ., [place]) Laboratory Results Last 24 Hours Test 05/14/17 15:25 05/14/17 17:20 05/15/17 06:49 White Blood Count 6.24 K/uL Red Blood Count 3.92 M/uL Hemoglobin 12.5 g/dL Hematocrit 36.3 % Mean Corpuscular Volume 92.6 fL Mean Corpuscular Hemoglobin 31.9 pg Mean Corpuscular Hemoglobin Concent 34.4 g/dl Platelet Count 276 K/uL Mean Platelet Volume 9.5 fL Neutrophils (%) (Auto) 67.8 % Lymphocytes (%) (Auto) 19.7 % Monocytes (%) (Auto) 11.9 % Eosinophils (%) (Auto) 0.2 % Basophils (%) (Auto) 0.2 % Neutrophils # (Auto) 4.24 K/uL Lymphocytes # (Auto) 1.23 K/uL Monocytes # (Auto) 0.74 K/uL Eosinophils # (Auto) 0.01 K/uL Basophils # (Auto) 0.01 K/uL RDW Standard Deviation 42.5 fL RDW Coefficient of Variation 12.5 % Immature Granulocyte % (Auto) 0.2 % Immature Granulocyte # (Auto) 0.01 K/uL Sodium Level 125 mmol/L 135 mmol/L Potassium Level 3.8 mmol/L 4.6 mmol/L Chloride Level 90 mmol/L 100 mmol/L Carbon Dioxide Level 25 mmol/L 27 mmol/L Anion Gap 10.0 mmol/L 8.0 mmol/L Blood Urea Nitrogen 10 mg/dl 9 mg/dl Creatinine 0.93 mg/dl 0.85 mg/dl Est Creatinine Clear Calc Drug Dose 42.0 ml/min 45.9 ml/min Estimated GFR () 70.2 78.2 Estimated GFR (Non- 60.5 67.5 BUN/Creatinine Ratio 11.2 10.6 Random Glucose 119 mg/dl 88 mg/dl Calcium Level 8.7 mg/dl 8.5 mg/dl Total Bilirubin 0.4 mg/dl Direct Bilirubin 0.2 mg/dl Aspartate Amino Transf (AST/SGOT) 23 U/L Alanine Aminotransferase (ALT/SGPT) 24 U/L Alkaline Phosphatase 49 U/L Total Protein 8.1 gm/dl Albumin 3.8 gm/dl Lipase 257 U/L Urine Color YELLOW Urine Appearance CLEAR Urine pH 7.5 Urine Specific [place] 1.008 Urine Protein NEG Urine Glucose (UA) NEG Urine Ketones NEG Urine Occult Blood NEG Urine Nitrite NEG Urine Bilirubin NEG Urine Urobilinogen NEG Urine Leukocyte Esterase NEG Urine WBC (Auto) 1-5 /hpf Urine RBC (Auto) 0-4 /hpf Urine Hyaline Casts (Auto) 0 /lpf Urine Epithelial Cells (Auto) 0-5 /lpf Urine Bacteria (Auto) NEG (Awilda Dunham, PA-C) Assessment and Plan 76 y/o female with a history of HTN, HLD, and osteoporosis who was admitted on for with abdominal pain and hyponatremia. Hyponatremia--resolved -Admitted to med/surg -Sodium 125 on admission -Given 1L NSS bolus and sodium bicarb 650 mg PO x 1 -Sodium up to 135 on 05/15 Abdominal pain--ongoing -May be secondary to diarrhea x 2-3 weeks -CT abdomen and pelvis negative for acute inflammation or infection -UA negative, no s/s infection -Continue Zofran IV prn nausea -Trial of Bentyl 10 mg, give 1 dose now -If no improvement, try GI cocktail Vertigo/dizziness--improving -Antivert 25 mg PO x 1, improved -Continue Antivert 25 mg PO TID prn dizziness or vertigo Diarrhea--none today -Outpatient C. diff and stool cultures 05/06 negative -Continue probiotic HTN--stable -Continue lisinopril/HCTZ 20/12.5 mg PO qd Osteoporosis -Continue Evista 60 mg PO qd and vitamin D supplement DVT prophylaxis -SCDs Code Status -Level I, FULL RESUSCITATION STATUS (Awilda Dunham, PA-C) I agree with PA assessment and plan and have seen and examined pt myself Resting comfortably in bed States mild abd cramping Noted dizziness/vertigo this AM Labs and vitals reviewed Hyponatremia resolving Start on antivert for vertigo/dizziness Start on bentyl for abd cramping/pain Likely DC in next 24 hrs (Andry Garcia D.O.)
[2017-05-15] MEDS: MECLIZINE HCL 25 MG TAB PO PRN (14:25)
[2017-05-15 15:37] VITALS: BP 129/75; PULSE 72; TEMP 36.8; O2SAT 100
[2017-05-15 23:28] VITALS: BP 119/77; PULSE 63; TEMP 36.6; O2SAT 97
[2017-05-16 07:35] LABS: BUN/CREATININE RATIO 20.6 (10-20); CREATININE 0.87 mg/dl (0.60-1.20); POTASSIUM 4.6 mmol/L (3.5-5.1)
[2017-05-16] MEDS: MECLIZINE HCL 25 MG TAB PO PRN (07:52)
[2017-05-16] MEDS: LACTOBACILLUS ACIDOPHILUS (FLORANEX) TAB PO SCH (08:00)
[2017-05-16 08:04] VITALS: BP_SYST 131; BP_SYST 143; BP_SYST 146; BP_DIAS 80; BP_DIAS 89; BP_DIAS 91; PULSE 63; TEMP 36.6; O2SAT 100
[2017-05-16] MEDS: LISINOPRIL/HCTZ 20/12.5MG TAB PO SCH (08:52)
[2017-05-16] MEDS: RALOXIFENE 60 MG TAB PO SCH (08:53)
[2017-05-16] MEDS: MAGNESIUM OXIDE 400 MG TAB PO SCH (08:53)
[2017-05-16] MEDS: CHOLECALCIFEROL 1000 INTER.UNIT TAB PO SCH (08:53)
[2017-05-16] MEDS ORDERED: ASPIRIN 81 MG ECTAB PO SCH (09:00)
[2017-05-16] MEDS ORDERED: DOCUSATE SODIUM 100 MG CAP PO STA (09:35)
[2017-05-16] MEDS ORDERED: ANT25 PO (12:23)
[2017-05-16 12:28] LABS: CALCIUM 8.6 mg/dl (8.5-10.1)
--- NOTE | 2017-05-16 12:29 | Discharge Instructions ---
Discharge Instructions Date of Service May 16, 2017. Admission Reason for Admission: Hyponatremia Discharge Discharge Diagnosis / Problem: Hyponatremia, gastroenteritis Discharge Goals Goal(s): Decrease discomfort, Improve function, Increase independence, Improve disease control, Diagnostic testing, Therapeutic intervention, Prevent Disease Progression Activity Recommendations Activity Limitations: resume your previous activity Exercise/Sports Limitations: none . Instructions / Follow-Up Instructions / Follow-Up Patient to be discharged home Likely patient had abdominal pain/cramps from persistent diarrhea likely from a viral gastroenteritis No need for antibiotics at this hansa Please take meclizine 25 mg capsule up to three times a day as needed for nausea If worsening fevers, nausea, vomiting, abdominal pain please report to ER Please follow up with Dr Green in 1-2 weeks Current Hospital Diet Patient's current hospital diet: Regular Diet Discharge Diet Recommended Diet: Regular Diet Pending Studies Studies pending at discharge: no Medical Emergencies . Who to Call and When: Medical Emergencies: If at any time you feel your situation is an emergency, please call 911 immediately. . Non-Emergent Contact Non-Emergency issues call your: Primary Care Provider Call Non-Emergent contact if: you have a fever, your pain is worsening . . "Provider Documentation" section prepared by Andry Garcia. . VTE Core Measure Inpt VTE Proph given/why not?: SCD's
[2017-05-16 13:45] VITALS: BP 143/89; PULSE 63; TEMP 36.6; O2SAT 100
--- NOTE | 2017-05-16 16:42 | Discharge Summary ---
Discharge Summary Date of Service May 16, 2017. Discharge Summary Admission Date: May 14, 2017 at 18:13 Discharge Date: May 16, 2017 Discharge Disposition: Home Principal Diagnosis: Hyponatremia, dizziness Immunizations: Have You Had Influenza Vaccine: No History of Tetanus Vaccine?: Yes Tetanus Immunization Date: Jul 18, 2007 History of Pneumococcal: No History of Hepatitis B Vaccine: No Medication Reconciliation New Medications: Meclizine HCl (Meclizine HCl) 25 Mg Tab 25 MG PO TID PRN for Dizziness or Vertigo, #30 TAB Continued Medications: Aspirin (Aspirin Ec) 81 Mg Tab 81 MG PO Q2D Cholecalciferol (Vitamin D) 2,000 Unit Cap 2000 UNIT PO QAM Lactobacillus (Probiotic) 1 Cap Cap 1 CAP PO DAILY Lisinopril/Hctz (Zestoretic 20MG/12.5MG) Tab 1 TAB PO QAM, TAB Magnesium (Magnesium 250 mg) 1 Tab Tab 250 MG PO QAM Raloxifene Hcl (Evista) 60 Mg Tab 60 MG PO QAM Discharge Exam Review of Systems: Constitutional: No fever, No chills, No sweats, No weakness ENT: No hearing loss, No unusual epistaxis, No nasal symptoms, No sore throat, No tinnitus Respiratory: No cough, No sputum, No wheezing, No shortness of breath, No dyspnea on exertion, No dyspnea at rest Cardiovascular: No chest pain, No orthopnea, No PND Abdomen: No pain, No nausea, No vomiting, No diarrhea Musculoskeletal: No joint pain, No muscle pain, No swelling Genitourinary - Female: No dysuria, No urinary frequency, No urinary urgency , No urinary incontinence Neurologic: No memory loss, No paralysis, No weakness, No numbness/tingling Psychiatric: No depression symptoms, No anhedonism, No anxiety Physical Exam: General Appearance: WD/WN, no apparent distress Eyes: normal inspection, PERRL, EOMI, sclerae normal Neck: supple, no adenopathy, thyroid normal, no JVD Respiratory/Chest: chest non-tender, lungs clear, normal breath sounds, no respiratory distress Cardiovascular: regular rate, rhythm, no edema, no gallop, no JVD Abdomen / GI: normal bowel sounds, non tender, soft, no organomegaly Extremities: normal inspection, no calf tenderness, normal capillary refill , no pedal edema Neurologic/Psychiatric: alert, normal mood/affect, normal reflexes, oriented x 3 Skin: normal color, warm/dry, no rash Lymphatic: no adenopathy Hospital Course 76 y/o female with a history of HTN, HLD, and osteoporosis who was admitted on for with abdominal pain and hyponatremia. Hyponatremia--resolved -Admitted to med/surg -Sodium 125 on admission -Given 1L NSS bolus and sodium bicarb 650 mg PO x 1 -Sodium up to 134 on 05/16 Abdominal pain--resolved -May be secondary to diarrhea x 2-3 weeks -CT abdomen and pelvis negative for acute inflammation or infection -UA negative, no s/s infection -Continue Zofran IV prn nausea -Trial of Bentyl 10 mg, give 1 dose now, resolved with dose Vertigo/dizziness--likely from viral prodrome -Antivert 25 mg PO x 1, improved -Continue Antivert 25 mg PO TID prn dizziness or vertigo on discharge Diarrhea--none today -Outpatient C. diff and stool cultures 05/06 negative -Continue probiotic HTN--stable -Continue lisinopril/HCTZ 20/12.5 mg PO qd Osteoporosis -Continue Evista 60 mg PO qd and vitamin D supplement DVT prophylaxis -SCDs Code Status -Level I, FULL RESUSCITATION STATUS Total Time Spent: Greater than 30 minutes This includes examination of the patient, discharge planning, medication reconciliation, and communication with other providers. Discharge Instructions Please refer to the electronic Patient Visit Report (Discharge Instructions) for additional information. Additional Copies To Kg Green M.D.
== END 2017-05-16 14:21 | disposition home or self-care (01) | DRG 392 ==
LOC: C.EDB 14:44 → C.MS4W 18:13 → ENRESERV 18:38
PROVIDERS: ADMIT Family Medicine; ATTEND Hospitalist
DX: K52.9 Noninfective gastroenteritis and colitis, unspecified (principal); E87.1 Hypo-osmolality and hyponatremia; I10 Essential (primary) hypertension; M81.0 Age-related osteoporosis without current pathological fracture; B34.9 Viral infection, unspecified; R42 Dizziness and giddiness; M41.9 Scoliosis, unspecified; Z79.82 Long term (current) use of aspirin; Z79.899 Other long term (current) drug therapy

== ENCOUNTER → 2017-05-22 | Outpatient (CLI) | payer BC ==
[~2017-05-22] MED LIST changes: +ANT25 PO; +LACT1CAP6 PO; +LISI-787 PO; -LSN/10125 PO; +RALO60TA12 PO; -RALO60TA30 PO
--- NOTE | 2017-05-22 14:11 | DIAGNOSTIC IMAGING REPORT ---
EXAMINATION: PELVIC ULTRASOUND CLINICAL HISTORY: LT LOWER QUAD Pain, pelvic PAIN PAIN COMPARISON STUDY: None FINDINGS: The uterus measured 4.6 cm. Several myometrial calcifications. The endometrial stripe measured not identified. The right ovary measured 1.4 cm with normal vascular flow. The left ovary measured 1.4 cm with normal vascular flow. There is no ultrasonographic evidence of ovarian torsion. It should be noted that ovarian torsion can be present with normal Doppler ultrasonographic findings. There was no evidence of pathologic free pelvic fluid. IMPRESSION: Negative pelvic ultrasound for age Electronically signed by: Chapin Lees M.D. 05/22/2017 2:10 PM Dictated Date/Time: 05/22/2017 2:08 PM
== END | disposition home or self-care (01) ==
LOC: C.ULTR 13:27
PROVIDERS: ATTEND Physician Assistant
DX: R10.32 Left lower quadrant pain (principal); R10.2 Pelvic and perineal pain

== ENCOUNTER → 2017-05-22 | Outpatient (CLI) | payer BC | END | disposition home or self-care (01) | LOC: C.LAB 19:13 | PROVIDERS: ATTEND Family Medicine | DX: R31.9 Hematuria, unspecified (principal) ==

== ENCOUNTER → 2017-11-30 | Outpatient (CLI) | payer BC ==
[~2017-11-30] MED LIST changes: -RALO60TA12 PO; +RALO60TA30 PO
--- NOTE | 2017-11-30 14:39 | MAMMOGRAPHY REPORT ---
BILATERAL DIGITAL SCREENING MAMMOGRAM TOMOSYNTHESIS WITH CAD: 11/30/2017 CLINICAL HISTORY: Routine screening. Patient has no complaints. TECHNIQUE: Breast tomosynthesis in addition to standard 2D mammography was performed. Current study was also evaluated with a Computer Aided Detection (CAD) system. COMPARISON: Comparison is made to exams dated: 11/29/2016 mammogram, 11/27/2015 mammogram, 10/07/2014 m ammogram, 10/04/2013 mammogram, 10/03/2012 mammogram, and 09/28/2011 mammogram - [facility]. BREAST COMPOSITION: There are scattered areas of fibroglandular density in both breasts. FINDINGS: No suspicious masses, calcifications, or areas of architectural distortion are noted in ei ther breast. There has been no significant interval change compared to prior exams. Bilateral benign vascular calcifications are again noted. A linear scar marker denotes a scar on the right medial br east. IMPRESSION: ACR BI-RADS CATEGORY 2: BENIGN There is no mammographic evidence of malignancy. A 1 year screening mammogram is recommended. The pa tient will receive written notification of the results. Approximately 10% of breast cancers are not detected with mammography. A negative mammographic report should not delay biopsy if a clinically suggestive mass is present. Sherrie Cobos M.D. ah/:11/30/2017 12:28:00 Port Traffic Manager: Hodan ROSALES)(M), [facility] letter sent: Normal 1/2 BI-RADS Code: ACR BI-RADS Category 2: Benign
== END | disposition home or self-care (01) ==
LOC: C.MAMM 09:35
PROVIDERS: ATTEND Family Medicine
DX: Z12.31 Encounter for screening mammogram for malignant neoplasm of breast (principal)

== ENCOUNTER → 2018-04-02 | Outpatient (CLI) | payer BC | END | disposition home or self-care (01) | LOC: C.MAMM 07:58 | PROVIDERS: ATTEND Family Medicine | DX: M81.0 Age-related osteoporosis without current pathological fracture (principal); M85.851 Other specified disorders of bone density and structure, right thigh; M85.852 Other specified disorders of bone density and structure, left thigh ==

== ENCOUNTER 2018-04-10 23:55 | Emergency (ER) | payer BC ==
[~2018-04-10] VITALS: Ht 157.5 cm; Wt 61.1 kg
[2018-04-11 00:02] VITALS: TEMP 36.8; Ht 157.5 cm; Wt 61.1 kg
[2018-04-11] MEDS ORDERED: SODIUM CHLORIDE 0.9% 500ML 500 ML IV STA ×2 (00:20→03:09)
[2018-04-11] MEDS ORDERED: MECLIZINE HCL 25 MG TAB PO STA (00:20)
[2018-04-11] MEDS ORDERED: OPTIRAY 320 IV PRN (00:45)
[2018-04-11 00:50] LABS: BASO % 0.2 %; BASO ABS # 0.01 K/uL (0-0.2); EOS % 0.3 %; EOS ABS # 0.02 K/uL (0-0.5); HEMATOCRIT 35.2 % (37-47); HEMOGLOBIN 12.5 g/dL (12.0-16.0); IG# 0.02 K/uL (0.00-0.02); LYMPH % 20.9 %; LYMPH ABS # 1.38 K/uL (1.2-3.4); MEAN CELL VOLUME 90.7 fL (80-100); MEAN CORPUSCULAR HEMOGLOBIN 32.2 pg (25-34); MEAN CORPUSCULAR HGB CONC 35.5 g/dl (32-36); MEAN PLATELET VOLUME 9.7 fL (7.4-10.4); MONO % 9.4 %; MONO ABS # 0.62 K/uL (0.11-0.59); NEUT % 68.9 %; NEUT ABS # 4.56 K/uL (1.4-6.5); PLATELET COUNT 228 K/uL (130-400); RED CELL DISTRIBUTION WIDTH CV 12.5 % (11.5-14.5); RED CELL DISTRIBUTION WIDTH SD 41.3 fL (36.4-46.3); WHITE BLOOD COUNT 6.61 K/uL (4.8-10.8)
[2018-04-11 01:27] LABS: ALBUMIN 3.6 gm/dl (3.4-5.0); ALKALINE PHOSPHATASE 56 U/L (45-117); ALT/SGPT 21 U/L (12-78); AST/SGOT 28 U/L (15-37); BLOOD UREA NITROGEN 15 mg/dl (7-18); CALCIUM 8.5 mg/dl (8.5-10.1); CARBON DIOXIDE 27 mmol/L (21-32); GLUCOSE 117 mg/dl (70-99); POTASSIUM 3.6 mmol/L (3.5-5.1); SODIUM 127 mmol/L (136-145); TOTAL PROTEIN 8.2 gm/dl (6.4-8.2)
[2018-04-11] MEDS ORDERED: AMLODIPINE BESYLATE 5 MG TAB PO ONE (02:00)
[2018-04-11] MEDS ORDERED: CEFTRIAXONE SOD INJ 1 GM ADDVIAL IV STA (03:10)
--- NOTE | 2018-04-11 05:45 | EMERGENCY ROOM VISIT NOTE ---
History Report prepared by Monae: Danielle Fournier Under the Supervision of: Dr. Kandi Hansen D.O. First contact with patient: 00:06 Chief Complaint: HYPERTENSION Stated Complaint: HIGH BLOOD PRESSURE,DIZZINESS History of Present Illness The patient is a 77 year old female who presents to the Emergency Room with complaints of an episode of hypertension starting yesterday. The patient states that yesterday her blood pressure was 162/ something and tonight it was 184/ 107. She reports that she took her blood pressure because she was not feeling right. She stated that she felt dizzy like the room was spinning intermittently yesterday and all day today. She states that it is worse when she closes her eyes, lies down, and moves her head side to side. She reports that it is better when she is siting up. She notes that she has a history of vertigo and has felt slightly dizzy all week when she would go for her walks. She states that she felt like she staggered around. The patient complains of her heart pounding, nausea with the dizziness, neck tightness, a headache in the back of her head, and leg cramps while sleeping. The patient denies vomiting, knowing what started this, change in medications, abnormal eating/drinking, falls, abnormal bowel movements, urinary symptoms, abdominal pain, chest pain, numbness, and missing any doses of medication. Her son denies the patient having abnormal speech and her face looking differently. The patient notes that she started using a new cream prescribed by dermatology for her face last night. Source of History: patient Onset: yesterday Position: other (global) Quality: other (hypertension) Timing: other (episode) Modifying Factors (Worsening): movement (head side to side), other (closing her eyes, lying down) Modifying Factors (Relieving): other (sitting up) Associated Symptoms: + headache, + neck pain (tightness), + nausea, No chest pain, No vomiting, No abdominal pain, No urinary symptoms, No numbness Note: The patient complains of dizziness, her heart pounding, and leg cramping. The patient denies change in medications, knowing what caused this, falls, abnormal eating/drinking, abnormal bowel movements, and missing doses of her medications. Review of Systems See HPI for pertinent positives & negatives. A total of 10 systems reviewed and were otherwise negative. Past Medical & Surgical Medical Problems: (1) Chest pain (2) HTN (hypertension) (3) Hyponatremia (4) Scoliosis Surgical Problems: (1) History of back surgery Family History No pertinent family history Social History Smoking Status: Never Smoker Alcohol Use: none Drug Use: none Marital Status: single Housing Status: lives alone Occupation Status: retired Current/Historical Medications Scheduled Aspirin (Aspirin Ec), 81 MG PO Q2D Cephalexin (Keflex), 1 CAP PO BID Cholecalciferol (Vitamin D), 2,000 UNIT PO QAM Lisinopril/Hctz (Zestoretic 20MG/12.5MG), 1 TAB PO QAM Magnesium (Magnesium 250 mg), 250 MG PO QAM Raloxifene Hcl (Evista), 60 MG PO QAM Allergies Coded Allergies: Sulfa Antibiotics (Verified Allergy, Unknown, Unknown reaction, 04/11/18) Physical Exam Vital Signs Date Time Temp Pulse Resp B/P (MAP) Pulse Ox O2 Delivery O2 Flow Rate FiO2 04/11/18 06:07 66 15 150/107 97 04/11/18 05:47 150/107 04/11/18 05:46 140/123 04/11/18 05:00 66 16 159/92 04/11/18 04:30 69 12 167/89 04/11/18 04:09 68 04/11/18 04:00 68 17 139/84 96 04/11/18 03:30 92 20 182/97 97 04/11/18 03:26 93 159/97 04/11/18 03:25 80 154/114 04/11/18 03:22 70 151/87 04/11/18 03:22 71 14 151/87 99 Room Air 78 154/114 91 159/97 04/11/18 03:00 67 18 144/90 04/11/18 02:39 188/101 04/11/18 02:30 74 17 172/97 04/11/18 02:15 83 16 163/90 97 Room Air 04/11/18 01:01 76 18 182/100 04/11/18 01:00 76 04/11/18 00:57 70 18 186/100 04/11/18 00:02 36.8 87 18 180/97 100 Room Air Physical Exam GENERAL: alert, well appearing, well nourished, no distress, non-toxic EYE EXAM: normal conjunctiva, PERRL and EOM's grossly intact OROPHARYNX: no exudate, no erythema, lips, buccal mucosa, and tongue normal and mucous membranes are moist NECK: supple, no nuchal rigidity, no adenopathy, non-tender, no carotid bruits LUNGS: Clear to auscultation. Normal chest wall mechanics, no w/r/r HEART: no murmurs, S1 normal and S2 normal ABDOMEN: abdomen soft, non-tender, normo-active bowel sounds, no masses, no rebound or guarding. BACK: Back is symmetrical on inspection and there is no deformity, no midline tenderness, no CVA tenderness. Well-healed vertical midline incision from prior back surgery, kyphoscoliosis noted SKIN: no rashes and no bruising UPPER EXTREMITIES: upper extremities are grossly normal. Full range of motion, normal pulses LOWER EXTREMITIES: No pitting edema. Full range of motion, normal pulses NEURO EXAM: Normal sensorium, cranial nerves II-XII grossly intact, normal speech, no gross weakness of arms, no gross weakness of legs. No drift. Finger to nose intact. Gross sensation intact. Medical Decision & Procedures ER Provider Diagnostic Interpretation: Radiology results have been interpreted by the radiologist and reviewed by me. CHEST X-RAY: The results were interpreted by me. Spinal hardware noted. Mild cardiomegaly. No effusions. No focal consolidation. Hyperinflation. No pneumothorax. No wide mediastinum. CTA HEAD: No significant stenosis, occlusion, or aneurysm. Mild atherosclerotic calcification in the supraclinoid and cavernous portions of the distal right ICA without significant stenosis. Radiologist: Radha Webb MD Study ready at 02:28 and initial results transmitted at 02:54. CTA NECK: No significant stenosis, occlusion, or dissection. Mild atherosclerotic calcification in the right carotid bulb without significant stenosis. Radiologist: Radha Webb MD Study ready at 02:28 and initial results transmitted at 02:54. CT HEAD: Comparison is made to prior MRI brain on 03/17/2008. No acute intracranial abnormality identified. 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 Other scattered hypodensities in the supratentorial white matter likely represent chronic small vessel ischemic changes. Mild cerebral volume loss. Mild mucosal thickening in the left maxillary sinus. Mild arthrosclerotic calcifications in the intracranial vasculature. Radiologist: Radha Webb MD Study ready at 02:28 and initial results transmitted at 02:54. Laboratory Results 04/11/18 00:33 Red Blood Count 3.88, Mean Corpuscular Volume 90.7, Mean Corpuscular Hemoglobin 32.2, Mean Corpuscular Hemoglobin Concent 35.5, Mean Platelet Volume 9.7, Neutrophils (%) (Auto) 68.9, Lymphocytes (%) (Auto) 20.9, Monocytes (%) (Auto) 9.4, Eosinophils (%) (Auto) 0.3, Basophils (%) (Auto) 0.2, Neutrophils # (Auto) 4.56, Lymphocytes # (Auto) 1.38, Monocytes # (Auto) 0.62, Eosinophils # (Auto) 0.02, Basophils # (Auto) 0.01 04/11/18 00:33 Test 04/11/18 00:33 04/11/18 00:54 White Blood Count 6.61 K/uL (4.8-10.8) Red Blood Count 3.88 M/uL (4.2-5.4) Hemoglobin 12.5 g/dL (12.0-16.0) Hematocrit 35.2 % (37-47) Mean Corpuscular Volume 90.7 fL (80-100) Mean Corpuscular Hemoglobin 32.2 pg (25-34) Mean Corpuscular Hemoglobin Concent 35.5 g/dl (32-36) Platelet Count 228 K/uL (130-400) Mean Platelet Volume 9.7 fL (7.4-10.4) Neutrophils (%) (Auto) 68.9 % Lymphocytes (%) (Auto) 20.9 % Monocytes (%) (Auto) 9.4 % Eosinophils (%) (Auto) 0.3 % Basophils (%) (Auto) 0.2 % Neutrophils # (Auto) 4.56 K/uL (1.4-6.5) Lymphocytes # (Auto) 1.38 K/uL (1.2-3.4) Monocytes # (Auto) 0.62 K/uL (0.11-0.59) Eosinophils # (Auto) 0.02 K/uL (0-0.5) Basophils # (Auto) 0.01 K/uL (0-0.2) RDW Standard Deviation 41.3 fL (36.4-46.3) RDW Coefficient of Variation 12.5 % (11.5-14.5) Immature Granulocyte % (Auto) 0.3 % Immature Granulocyte # (Auto) 0.02 K/uL (0.00-0.02) Anion Gap 8.0 mmol/L (3-11) Est Creatinine Clear Calc Drug Dose 46.5 ml/min Estimated GFR () 72.5 Estimated GFR (Non- 62.5 BUN/Creatinine Ratio 16.9 (10-20) Calcium Level 8.5 mg/dl (8.5-10.1) Magnesium Level 1.4 mg/dl (1.8-2.4) Total Bilirubin 0.5 mg/dl (0.2-1) Aspartate Amino Transf (AST/SGOT) 28 U/L (15-37) Alanine Aminotransferase (ALT/SGPT) 21 U/L (12-78) Alkaline Phosphatase 56 U/L (45-117) Troponin I < 0.015 ng/ml (0-0.045) Pro-B-Type Natriuretic Peptide 212 pg/ml (0-900) Total Protein 8.2 gm/dl (6.4-8.2) Albumin 3.6 gm/dl (3.4-5.0) Globulin 4.6 gm/dl (2.5-4.0) Albumin/Globulin Ratio 0.8 (0.9-2) Thyroid Stimulating Hormone (TSH) 1.950 uIu/ml (0.300-4.500) Urine Color YELLOW Urine Appearance CLEAR (CLEAR) Urine pH 7.0 (4.5-7.5) Urine Specific [place] 1.014 (1.000-1.030) Urine Protein NEG (NEG) Urine Glucose (UA) NEG (NEG) Urine Ketones NEG (NEG) Urine Occult Blood NEG (NEG) Urine Nitrite NEG (NEG) Urine Bilirubin NEG (NEG) Urine Urobilinogen NEG (NEG) Urine Leukocyte Esterase MODERATE (NEG) Urine WBC (Auto) 10-30 /hpf (0-5) Urine RBC (Auto) 0-4 /hpf (0-4) Urine Hyaline Casts (Auto) 0 /lpf (0-5) Urine Epithelial Cells (Auto) 20-30 /lpf (0-5) Urine Bacteria (Auto) NEG (NEG) Laboratory results per my review. Medications Administered Medications (Trade) Dose Ordered Sig/Ekrri Route Start Time Stop Time Status Last Admin Dose Admin Sodium Chloride 500 ml @ 999 mls/hr Q31M STAT IV 04/11/18 00:20 04/11/18 00:50 DC 04/11/18 00:50 999 MLS/HR Meclizine HCl (Antivert Tab) 25 mg NOW STAT PO 04/11/18 00:20 04/11/18 00:23 DC 04/11/18 00:49 25 MG Amlodipine Besylate (Norvasc Tab) 5 mg NOW ONCE PO 04/11/18 02:00 04/11/18 02:01 DC 04/11/18 02:14 5 MG Sodium Chloride 500 ml @ 999 mls/hr Q31M STAT IV 04/11/18 03:09 04/11/18 03:39 DC 04/11/18 03:29 999 MLS/HR Ceftriaxone Sodium (Rocephin Inj) 1 gm NOW STAT IV 04/11/18 03:10 04/11/18 03:11 DC 04/11/18 03:29 1 GM ECG Per My Interpretation Indication: other (dizziness) Rate (beats per minute): 77 Rhythm: sinus rhythm Findings: no acute ischemic change, left axis deviation, no ectopy, other ( normal intervals, baseline artifact noted) ED Course 0009: The patient was evaluated in room B6. A complete history and physical exam was performed. Past EMR records indicate that she had a normal stress echo completed in February of 2016. 0020: Ordered Antivert Tab 25 mg PO, NSS 500 ml @ 999 mls/hr IV. 0200: Ordered Norvasc 5 mg PO. 0235: I reevaluated the patient and she is doing well. 0309: Ordered NSS 500 ml @ 999 mls/hr IV. 0310: Ordered Rocephin Inj 1 gm IV. 0530: Upon reevaluation, the patient is feeling better. I discussed the findings and the treatment plan with the patient. Patient is annually with a steady gait several times here. She denies any orthostatic symptoms. She verbalizes agreement and understanding. The patient was discharged home. Medical Decision Differential diagnosis includes etiologies such as benign positional vertigo, dehydration, hypovolemia, anemia, tumor, infection, hypoglycemia, electrolyte abnormalities, cardiac sources, intracerebral event, toxicologic, neurologic, as well as others were entertained. Discussed with patient and daughter all results of bedside. Patient improved here and was well-appearing at discharge. Patient denied any residual symptoms. Patient's blood pressure had begun to improve on its own spontaneously, with any movement it would immediately elevate again, so she was given 1 dose of Norvasc 5 mg. Patient was given normal saline IV fluids to help with hydration and her hyponatremia as I felt these could also be contributing to some of her symptoms. I feel patient's dizziness likely multifactorial. Per family's description at bedside patient does have a history of vertigo and this was similar although more severe than prior episodes. There is no evidence of any acute intracranial pathology. Discussed with patient possibility of hypertensive urgency, also discussed with her that her blood pressure may have been reacting to the fact that she did not feel well initially. I feel there also could be a component of dehydration as well as her hyponatremia but she has had previously contributing to some of her symptoms. Daughter at bedside states that last year she had a sodium of 125 and was ultimately found to be due to a misuse of a medication at home. Most recent sodium levels in the EMR showed levels of 131 and 134. Discussed with patient equivocal urinalysis and suboptimal specimen. Given the fact that the patient is elderly with vague symptoms, I feel UTI could be contributing. For this reason patient was started on antibiotics and advised to follow-up closely urine sent for culture. Discussed with her close follow-up with her family doctor to recheck her blood pressure, repeat sodium level, and follow-up the urine culture result. Discussed checks of her blood pressure at home. Discussed symptoms to watch and return for, parameters be concerning regarding her home blood pressure checks, use and ADRs of antibiotics, careful hydration, she and daughter verbalized understanding were agreeable with plan. I do not suspect bacteremia/sepsis, dissection, PE, CVA, cerebellar infarct/mass/bleed, vertebral artery dissection, arterial occlusion or other acute vascular etiology , ACS, or dysrhythmia. Patient well-appearing at time of discharge, ambulating with a steady gait without any residual symptoms able to get in and out of bed without any residual symptoms, blood pressure improved, tolerating sips of p.o. at bedside, and anxious to return home. All questions were answered at bedside. I feel patient is reliable to follow-up or return for any new or concerning symptoms. Medication Reconcilliation Current Medication List: was personally reviewed by me Blood Pressure Screening Patient's blood pressure: Elevated blood pressure Blood pressure disposition: Referred to PCP Impression Primary Impression: Dizziness Additional Impressions: Hypertension Hyponatremia UTI (urinary tract infection) Scribe Attestation The scribe's documentation has been prepared under my direction and personally reviewed by me in its entirety. I confirm that the note above accurately reflects all work, treatment, procedures, and medical decision making performed by me. Departure Information Dispostion Home / Self-Care Prescriptions Cephalexin (KEFLEX) 500 Mg Cap 1 CAP PO BID for 7 Days, #14 CAP Prov: Kandi Hansen, DO 04/11/18 Referrals Kg Green M.D. (PCP) Forms HOME CARE DOCUMENTATION FORM, IMPORTANT VISIT INFORMATION, WORK / SCHOOL INSTRUCTIONS Patient Instructions My [facility] Additional Instructions Please call and follow-up with your family doctor by the end of the week. Please have them recheck your blood pressure and discuss with them if you need a change in your blood pressure medication. Your sodium level tonight was 127. This needs to be rechecked at the end of the week to to assure that it is not going any lower. Your urine will be sent for a culture. Please take the antibiotics as prescribed at least until you see your family doctor in order to check the culture and make sure you did not have an ongoing infection. If you have any recurrent episodes of dizziness, noticed high blood pressure when you check it yourself at home, develop chest pain, trouble breathing, headaches, vision changes, numbness or tingling, belly pain, back pain, are unable to walk , you have any other new concerns, please return the emergency room. Please continue your regular medications as prescribed. Problem Qualifiers Additional Impressions: Hypertension Hypertension type: essential hypertension Qualified Codes: I10 - Essential ( primary) hypertension UTI (urinary tract infection) Urinary tract infection type: acute cystitis Hematuria presence: without hematuria Qualified Codes: N30.00 - Acute cystitis without hematuria
[2018-04-11] MEDS ORDERED: CEPH-571 PO (05:59)
[2018-04-11 06:07] VITALS: BP 150/107; PULSE 66; O2SAT 97
--- NOTE | 2018-04-11 06:53 | DIAGNOSTIC IMAGING REPORT ---
ANGIOGRAPHY HEAD COMBO CLINICAL HISTORY: 77 years-old Female acute dizziness with high blood pressure and headache COMPARISON STUDY: CTA neck of same day, CT head 03/14/2008 TECHNIQUE: Unenhanced axial CT scan of the brain is performed. Subsequently, following the IV administration of 120 cc of Optiray 320, CT angiogram of the brain was performed from the skull base to the vertex. Images are reviewed in the axial, sagittal, and coronal planes. 3-D MIPS images are created and assessed. IV contrast was administered without complication. A dose lowering technique was utilized adhering to the principles of ALARA. CT DOSE: 4.72 mGycm FINDINGS: CT BRAIN: There is no acute intracranial hemorrhage, midline shift, hydrocephalus, intracranial mass, territorial ischemia or abnormal extra-axial collections. There is mild atrophy. Ill-defined areas of low-attenuation within the periventricular white matter suggest chronic microvascular ischemic changes. Encephalomalacia about the genu corpus callosum is new from prior exam suggesting remote infarction. Cerebral vascular calcifications are seen at the level of the skull base. No abnormal intra-axial or extra-axial enhancement. Mastoid air cells and are clear. Mild mucosal thickening with aerated secretions involves the left maxillary sinus. No calvarial fracture. Paranasal sinuses are clear. CT ANGIOGRAM OF THE BRAIN: The imaged bilateral internal carotid arteries are patent. There is mild atherosclerotic plaquing involving the cavernous and clinoid portions of the internal carotid arteries bilaterally without high-grade stenosis. The bilateral anterior and middle cerebral arteries are also patent. The vertebrobasilar system and posterior cerebral arteries are widely patent. There is no aneurysm, high-grade stenosis, or proximal branch occlusion identified. Dural sinuses appear patent. IMPRESSION: 1. No acute intracranial abnormality identified. 2. Unremarkable CTA of the head without aneurysm, high-grade stenosis, dissection or proximal branch occlusion. 3. Atrophy with chronic microvascular ischemic changes. Encephalomalacia involving the genu corpus callosum suggests remote infarction, however is new from comparison study 03/14/2008. The above report was generated using voice recognition software. It may contain grammatical, syntax or spelling errors. Electronically signed by: Ghulam Wheeler M.D. 04/11/2018 6:52 AM Dictated Date/Time: 04/11/2018 6:45 AM
--- NOTE | 2018-04-11 07:04 | DIAGNOSTIC IMAGING REPORT ---
CT ANGIOGRAPHY OF THE NECK WITH CONTRAST CLINICAL HISTORY: Neck pain, dizziness and headache. COMPARISON STUDY: Neck CT April 23, 2009 and carotid ultrasound March 15, 2008. Technique: CT angiography of the carotid and vertebral arteries was obtained using Genomas 320 IV and 3D reconstruction on an independent workstation. NASCET criteria was utilized. A dose lowering technique was utilized adhering to the principles of ALARA. Findings: The bilateral common carotid, internal carotid and vertebral arteries are patent. There is no dissection or stenosis within these vessels. There is minimal plaque at the bilateral carotid bifurcations. No cervical lymphadenopathy is present. The lung apices are clear. Thoracic spine hardware is partially imaged. These head CT will be reported separately. IMPRESSION: No stenosis or dissection within the major vasculature of the neck. Unremarkable CTA of the neck. Electronically signed by: Cornelius Nesbitt M.D. 04/11/2018 7:03 AM Dictated Date/Time: 04/11/2018 6:56 AM
--- NOTE | 2018-04-11 07:42 | DIAGNOSTIC IMAGING REPORT ---
CHEST ONE VIEW PORTABLE HISTORY: palpitations, dizziness COMPARISON: Chest 05/06/2017. FINDINGS: Left basilar linear densities consistent with scarring or atelectasis. This remains unchanged. The heart is top normal in size. No pleural effusions. No pneumothorax. Fracture through the thoracolumbar spinal rods remains unchanged. Scoliosis. No evidence for pulmonary edema. Tortuous thoracic aorta. IMPRESSION: No significant change compared to the prior study. No acute process. Electronically signed by: Roscoe Barrios M.D. 04/11/2018 7:41 AM Dictated Date/Time: 04/11/2018 7:40 AM
== END 2018-04-11 06:08 | disposition home or self-care (01) ==
LOC: C.EDB 23:56
DX: I10 Essential (primary) hypertension (principal); N39.0 Urinary tract infection, site not specified; Z79.82 Long term (current) use of aspirin; Z79.899 Other long term (current) drug therapy; Z88.2 Allergy status to sulfonamides; E87.1 Hypo-osmolality and hyponatremia

== ENCOUNTER 2020-04-17 08:58 | Observation (INO) ==
[2020-04-17] MEDS ORDERED: SODIUM CHLORIDE 0.9% 1000ML 500 ML IV ONE (09:39)
--- NOTE | 2020-04-17 09:41 | Emergency Department Note ---
Impression & Plan Chest pain, HTN (hypertension), Acute hyponatremia ED Provider Note NAME: REJI IRBY AGE: 79 SEX: F : 1940 ARRIVES VIA: Walk-In INFORMANT: Patient ED PROVIDER(S): Hill Jauregui DO CHIEF COMPLAINT: Elevated blood pressure and heart racing HPI: Patient is a 79-year-old female with a past medical history of hypertension that presents the ER for feeling her heart race. This has been present since last evening. She denies any chest pain shortness of breath. No other exacerbating or remitting factors. She went to bed and then when she woke up in the morning since about 630 she has felt her heart racing as well. She checked her blood pressure and it was in the 190s and consequently she came into the ER. She denies any headache change in vision, nausea vomiting diarrhea, dysuria urgency or frequency. She has no complaints at this time. She did take her lisinopril which she takes 20 mg this morning. Patient later admits to just prior to discharge that she has been having chest pain off and on for the past 4 days. It is worse with exertion. She describes as a heaviness in the middle of her chest. ROS: See above HPI for pertinent positives & negatives. A total of 10 systems reviewed and were otherwise negative. PAST MEDICAL HISTORY:See Below PAST SURGICAL HISTORY:See Below FAMILY HISTORY:See Below SOCIAL HISTORY:See Below HOME MEDICATIONS:See Below ALLERGIES:See Below VITALS:See Below PHYSICAL EXAMINATION: GENERAL: Sitting up in bed, alert, well appearing, well nourished, no distress, non-toxic EYE EXAM: normal conjunctiva. PERRL and EOM's grossly intact. OROPHARYNX: no exudate, no erythema, lips, buccal mucosa, and tongue normal and mucous membranes are moist NECK: supple, no nuchal rigidity, no adenopathy, non-tender LUNGS: Clear to auscultation. Normal chest wall mechanics HEART: no murmurs, S1 normal and S2 normal ABDOMEN: abdomen soft, non-tender, normo-active bowel sounds, no masses, no rebound or guarding. BACK: Back is symmetrical on inspection and there is no deformity, no midline tenderness, no CVA tenderness. SKIN: no rashes and no bruising UPPER EXTREMITIES: upper extremities are grossly normal. LOWER EXTREMITIES: No pitting edema. NEURO EXAM: Normal sensorium, cranial nerves II-XII grossly intact, normal speech, no gross weakness of arms, no gross weakness of legs. MEDICAL DECISION MAKING: Patient is a 79-year-old female who presents the ER initially for palpitations. She denies any chest pain or shortness of breath or any other associated symptoms with the exception of an elevated blood pressure. IV was established blood work was obtained. Labs show no significant leukocytosis or anemia. INR was unremarkable. BMP along with LFTs bilirubin and lipase was unremarkable. Troponin was negative. Upon discharge she did note to nursing that she was having chest tightness. She notes that this has been off and on for the past 4 days. Located in the left upper chest. It is worse with walking. She was given nitro and aspirin at this point. She notes that the chest pain has been present since she arrived in the ER. Troponin was negative and EKG was unchanged from previous. Patient was updated bedside discussed with the hospitalist for observation due to hypotension and chest heaviness. Triage Nursing notes reviewed. Prior medical records reviewed Vital Signs: reviewed and remarkable for hypertensive Differential diagnosis: Benign hypertension, hypertensive emergency, cardiovascular pathology, toxicologic, pheochromocytoma, electrolyte abnormality, renal disease, endorgan damage, as well as other pathologies. ER treatment provided: See below Diagnostics interpreted by me: ECG: Sinus rhythm rate 80 Left axis No PVCs Normal QTC Inferior Q waves No significant change from October 28, 2019 Cardiac Monitoring: An order was placed for continuous cardiac monitoring. The monitor shows a rate of 85 with sinus rhythm. Laboratory studies: As stated above and show below. Imaging studies: Portable AP upright 1 view of the chest shows no focal infiltrate or pneumothorax. Consultation(s): Discussed with Kg Iverson for admission ED COURSE: Procedures: none Critical Care: None Past Med/Surg History Medical History (Updated 04/17/20 @ 15:12 by Hill Jauregui DO) Chest pain (Acute) Fracture, rib (Acute) History of CVA (cerebrovascular accident) HTN (hypertension) (Chronic) Hyponatremia Scoliosis (Chronic) Surgical History (Updated 03/16/20 @ 10:01 by Edmund Garcia MD) History of back surgery History of cataract extraction History of colonoscopy History of loop electrical excision procedure (LEEP) Status post breast lumpectomy Social History Preferred Language: Kyrgyz marital status: Current Living Situation: Alone current occupational status: retired Feels Safe at Home: Yes Smoking Status: Never smoker Hx Alcohol Use: Yes Alcohol type: wine Alcohol Intake Frequency: Weekly Alcohol Intake Frequency Comment: 2 glasses per week Hx Substance Use: No Allergies Allergies Allergy/AdvReac Type Severity Reaction Status Date / Time Sulfa (Sulfonamide Allergy Unknown Unknown Verified 04/17/20 09:47 Antibiotics) reaction amlodipine AdvReac RECURRENT Verified 04/17/20 09:47 LLQ PAIN hydrochlorothiazide AdvReac HYPONATRIMI Verified 04/17/20 09:47 A simvastatin AdvReac Muscle Pain Verified 04/17/20 09:47 Home Meds Home Medications Medication Instructions Recorded Confirmed aspirin [Aspirin Low Dose] 81 mg PO Q OTHER DAY #0 05/23/15 04/17/20 cholecalciferol (vitamin D3) 2,000 unit PO QAM #0 05/23/15 04/17/20 magnesium 250 mg PO QAM #0 05/23/15 04/17/20 raloxifene [Evista] 60 mg PO QAM #0 05/23/15 04/17/20 furosemide 10 mg PO QAM 05/26/19 04/17/20 lisinopril 20 mg tablet 30 mg PO QAM 10/24/19 04/17/20 acetaminophen [Tylenol] 325 mg PO QID PRN 04/17/20 04/17/20 Results & Data (ED) Vital Signs Vital Signs - 24 hr 04/17/20 09:03 04/17/20 09:51 04/17/20 09:56 Temperature 36.7 C Temperature Source Oral Pulse Rate 100 H 84 Respiratory Rate 20 15 Respiratory Effort / Characteristics Non-Labored Respiratory Depth Normal Blood Pressure 189/84 H Blood Pressure Mean 119 Blood Pressure Position Sitting Pulse Oximetry 97 Oxygen Delivery Method Room Air Room Air Sepsis Recent Fever Within 48 Hours No Sepsis Action Taken by Nursing No Action Required 04/17/20 10:00 04/17/20 10:25 04/17/20 10:30 Temperature Temperature Source Pulse Rate 79 72 77 Respiratory Rate 14 16 17 Respiratory Effort / Characteristics Respiratory Depth Blood Pressure 184/109 H Blood Pressure Mean 118 Blood Pressure Position Pulse Oximetry Oxygen Delivery Method Sepsis Recent Fever Within 48 Hours Sepsis Action Taken by Nursing 04/17/20 11:00 04/17/20 11:10 04/17/20 11:11 Temperature Temperature Source Pulse Rate 77 77 78 Respiratory Rate 15 18 17 Respiratory Effort / Characteristics Respiratory Depth Blood Pressure 183/108 H Blood Pressure Mean 140 Blood Pressure Position Pulse Oximetry Oxygen Delivery Method Sepsis Recent Fever Within 48 Hours Sepsis Action Taken by Nursing 04/17/20 11:30 04/17/20 12:00 04/17/20 12:07 Temperature Temperature Source Pulse Rate 75 85 79 Respiratory Rate 19 16 14 Respiratory Effort / Characteristics Respiratory Depth Blood Pressure 178/101 H 186/106 H Blood Pressure Mean 134 131 Blood Pressure Position Pulse Oximetry Oxygen Delivery Method Sepsis Recent Fever Within 48 Hours Sepsis Action Taken by Nursing 04/17/20 12:30 04/17/20 12:41 04/17/20 12:51 Temperature Temperature Source Pulse Rate 83 81 106 H Respiratory Rate 21 17 16 Respiratory Effort / Characteristics Respiratory Depth Blood Pressure 187/140 H 204/111 H 155/100 H Blood Pressure Mean 160 137 105 Blood Pressure Position Pulse Oximetry Oxygen Delivery Method Sepsis Recent Fever Within 48 Hours Sepsis Action Taken by Nursing 04/17/20 13:00 04/17/20 13:30 Temperature Temperature Source Pulse Rate 99 H 86 Respiratory Rate 18 16 Respiratory Effort / Characteristics Respiratory Depth Blood Pressure 157/80 H Blood Pressure Mean 97 Blood Pressure Position Pulse Oximetry 99 Oxygen Delivery Method Room Air Sepsis Recent Fever Within 48 Hours Sepsis Action Taken by Nursing Laboratory Data Result diagrams: 04/17/20 10:01 04/17/20 10:01 Lab Results 04/17/20 04/17/20 04/17/20 Range/Units 10:01 10:01 10:01 WBC 7.50 (4.8-10.8) K/uL RBC 3.81 L (4.2-5.4) M/uL Hgb 12.2 (12.0-16.0) g/dL Hct 36.7 L (37-47) % MCV 96.3 (80-100) fL MCH 32.0 (25-34) pg MCHC 33.2 (32-36) g/dL RDW Std Deviation 47.0 H (36.4-46.3) fL RDW Coeff of Denys 13.3 (11.5-14.5) % Plt Count 157 (130-400) K/uL MPV 10.6 H (7.4-10.4) fL Immature Gran % (Auto) 0.3 % Neut % (Auto) 80.1 % Lymph % (Auto) 11.7 % [place] % (Auto) 7.7 % Eos % (Auto) 0.1 % Baso % (Auto) 0.1 % Immature Gran # (Auto) 0.02 (0.00-0.02) K/uL Neut # (Auto) 6.00 (1.4-6.5) K/uL Lymph # (Auto) 0.88 L (1.2-3.4) K/uL [place] # (Auto) 0.58 (0.11-0.59) K/uL Eos # (Auto) 0.01 (0-0.5) K/uL Baso # (Auto) 0.01 (0-0.2) K/uL PT Cancelled INR Cancelled APTT Cancelled PTT Ratio Cancelled Sodium 134 L (136-145) mmol/L Potassium 3.6 (3.5-5.1) mmol/L Chloride 101 (98-107) mmol/L Carbon Dioxide 27 (21-32) mmol/L Anion Gap 6.0 (3-11) BUN 12 (7-18) mg/dl Creatinine 0.83 (0.6-1.2) mg/dl Est Cr Clr Drug Dosing 44.9 ml/min Est GFR ( Amer) 78.8 Est GFR (Non-Af Amer) 68.0 BUN/Creatinine Ratio 13.9 (10-20) Glucose 122 H (70-99) mg/dl Calcium 8.8 (8.5-10.1) mg/dl Magnesium (1.8-2.4) mg/dl Total Bilirubin 0.5 (0.2-1) mg/dl AST 24 (15-37) U/L ALT 19 (12-78) U/L Alkaline Phosphatase 46 (45-117) U/L Troponin I < 0.015 (0-0.045) ng/ml Total Protein 7.5 (6.4-8.2) gm/dl Albumin 3.6 (3.4-5.0) gm/dl Globulin 3.9 (2.5-4.0) gm/dl Albumin/Globulin Ratio 0.9 (0.9-2) Lipase 150 (73-393) U/L 04/17/20 04/17/20 Range/Units 10:01 10:40 WBC (4.8-10.8) K/uL RBC (4.2-5.4) M/uL Hgb (12.0-16.0) g/dL Hct (37-47) % MCV (80-100) fL MCH (25-34) pg MCHC (32-36) g/dL RDW Std Deviation (36.4-46.3) fL RDW Coeff of Denys (11.5-14.5) % Plt Count (130-400) K/uL MPV (7.4-10.4) fL Immature Gran % (Auto) % Neut % (Auto) % Lymph % (Auto) % [place] % (Auto) % Eos % (Auto) % Baso % (Auto) % Immature Gran # (Auto) (0.00-0.02) K/uL Neut # (Auto) (1.4-6.5) K/uL Lymph # (Auto) (1.2-3.4) K/uL [place] # (Auto) (0.11-0.59) K/uL Eos # (Auto) (0-0.5) K/uL Baso # (Auto) (0-0.2) K/uL PT 11.4 INR 1.1 APTT 26.1 PTT Ratio 0.9 Sodium (136-145) mmol/L Potassium (3.5-5.1) mmol/L Chloride (98-107) mmol/L Carbon Dioxide (21-32) mmol/L Anion Gap (3-11) BUN (7-18) mg/dl Creatinine (0.6-1.2) mg/dl Est Cr Clr Drug Dosing ml/min Est GFR ( Amer) Est GFR (Non-Af Amer) BUN/Creatinine Ratio (10-20) Glucose (70-99) mg/dl Calcium (8.5-10.1) mg/dl Magnesium 1.8 (1.8-2.4) mg/dl Total Bilirubin (0.2-1) mg/dl AST (15-37) U/L ALT (12-78) U/L Alkaline Phosphatase (45-117) U/L Troponin I (0-0.045) ng/ml Total Protein (6.4-8.2) gm/dl Albumin (3.4-5.0) gm/dl Globulin (2.5-4.0) gm/dl Albumin/Globulin Ratio (0.9-2) Lipase (73-393) U/L Administered Medications Discontinued Medications Aspirin (Aspirin) 324 mg PO NOW STA Stop: 04/17/20 12:05 Last Admin: 04/17/20 12:14 Dose: 324 mg Documented by: [id number] Calcium Carbonate (Tums) 1,500 mg PO ONE STA Stop: 04/17/20 12:56 Last Admin: 04/17/20 13:07 Dose: 1,500 mg Documented by: [id number] Carvedilol (Coreg) 3.125 mg PO NOW STA Stop: 04/17/20 12:59 Last Admin: 04/17/20 13:07 Dose: 3.125 mg Documented by: [id number] Sodium Chloride (Nss 1000ml) 500 mls @ 999 mls/hr IV .Q31M ONE Stop: 04/17/20 10:09 Last Admin: 04/17/20 10:45 Dose: 999 mls/hr Documented by: [id number] Nitroglycerin (Nitrostat) 0.4 mg SL NOW STA Stop: 04/17/20 12:04 Last Admin: 04/17/20 12:45 Dose: 0.4 mg Documented by: [id number] Potassium Chloride (Klor-Con M20) 20 meq PO NOW STA Stop: 04/17/20 14:07 Last Admin: 04/17/20 14:40 Dose: 20 meq Documented by: [id number] Discharge Plan Visit Data Chief Complaint: Hypertension Stated Complaint: BLOOD PRESSURE HIGH ED Provider: Hill Jauregui Discharge Problem: Chest pain, HTN (hypertension), Acute hyponatremia Discharge Instructions Interventions: ED Discharge Assessment Last Done: 04/17/20 14:22 Discharge Problem: Chest pain Qualifiers: Chest pain type: unspecified Qualified Code(s): R07.9 - Chest pain, unspecified HTN (hypertension) Qualifiers: Hypertension type: unspecified Qualified Code(s): I10 - Essential (primary) hypertension
[2020-04-17 10:09] LABS: Basophils # (auto) 0.01 K/uL (0-0.2); Basophils % (auto) 0.1 %; Eosinophils # (auto) 0.01 K/uL (0-0.5); Eosinophils % (auto) 0.1 %; Hematocrit (blood only) 36.7 % (37-47); Hemoglobin 12.2 g/dL (12.0-16.0); Immature Granulocytes # (auto) 0.02 K/uL (0.00-0.02); Immature Granulocytes % (auto) 0.3 %; Lymphocytes # (auto) 0.88 K/uL (1.2-3.4); Lymphocytes % (auto) 11.7 %; Mean Corpuscular Hgb Conc 33.2 g/dL (32-36); Mean Corpuscular Volume 96.3 fL (80-100); Mean Platelet Volume 10.6 fL (7.4-10.4); Monocytes # (auto) 0.58 K/uL (0.11-0.59); Monocytes % (auto) 7.7 %; Neutrophils % (auto) 80.1 %; Platelet Count 157 K/uL (130-400); RDW Coefficient of Variation 13.3 % (11.5-14.5); Red Blood Count 3.81 M/uL (4.2-5.4)
--- NOTE | 2020-04-17 10:09 | XRay Report ---
XR chest 1V portable CLINICAL HISTORY: Atypical chest pain COMPARISON STUDY: 10/28/2019 FINDINGS: There is a thoracolumbar levoscoliosis status post spinal rodding. The spinal rods remain f ractured. The heart is borderline enlarged. There is no failure. There is no focal pulmonary consolid ation. There are no pleural effusions. There is no pneumothorax.[ IMPRESSION: No active disease in the chest. ACT 112: Negative or not required by law. Electronically signed by: David Townsend M.D. 04/17/2020 10:07 AM
[2020-04-17 10:25] LABS: Alanine Aminotransferase 19 U/L (12-78); Albumin Level 3.6 gm/dl (3.4-5.0); Aspartate Aminotransferase 24 U/L (15-37); BUN Creatinine Ratio 13.9 (10-20); Blood Urea Nitrogen 12 mg/dl (7-18); Calcium 8.8 mg/dl (8.5-10.1); Carbon Dioxide 27 mmol/L (21-32); Chloride 101 mmol/L (98-107); Creatinine Clr Calc Pharmacy 44.9 ml/min; Est GFR (African American) 78.8; Glucose 122 mg/dl (70-99); Lipase 150 U/L (73-393); Potassium 3.6 mmol/L (3.5-5.1); Sodium 134 mmol/L (136-145)
[2020-04-17 10:30] LABS: Albumin Globulin Ratio 0.9 (0.9-2); Alkaline Phosphatase 46 U/L (45-117); Bilirubin,Total 0.5 mg/dl (0.2-1); Globulin 3.9 gm/dl (2.5-4.0); Total Protein 7.5 gm/dl (6.4-8.2); Troponin I < 0.015 ng/ml (0-0.045)
[2020-04-17 11:00] LABS: INR 1.1 (0.9-1.1); Partial Thromboplastin Ratio 0.9; Partial Thromboplastin Time 26.1 Seconds (21.0-31.0); Prothrombin Time 11.4 Seconds (9.0-12.0)
[2020-04-17] MEDS ORDERED: NITROGLYCERIN SL 0.4 MG/TAB TAB SL STA (12:03)
[2020-04-17] MEDS ORDERED: ASPIRIN CHEW 324 MG PO STA (12:04)
--- NOTE | 2020-04-17 12:33 | History & Physical Report ---
Date of Service April 17, 2020 Assessment & Plan (1) Hypertensive urgency: BP dropped with nitro SL x2 given in ER. No avoid risk of stroke will hold off further dosing of this as HEART score 3 and do not suspect IL given ongoing chest pain for three days without elevation in troponin. Unable to tolerate HCTZ (hyponatremia) or amlodipine (stomach upset) Start carvedilol 3.125mg BID Increase lisinopril 30 -> 40mg daily (2) Palpitations: Appear to be related to uncontrolled hypertension versus intermittent PACs Mg level pending. K 3.6 - will start on supplementation given lasix use. (3) Atypical chest pain: Reproducible on palpation therefore suspect MSK/costochondritis although patient not the most reliable historian (see below) Increased belching, burning sensation and worse with lying flat makes GERD relatively suspicious (see below) Not IL given ongoing chest pain for 3 days without troponin rise. Will defer to physician tomorrow regarding stress testing although it does not appear to be n ecessary currently. (4) Costochondritis: Suspected as above. Acetaminophen 325mg PRN. Avoid NSAIDs given possible concurrent GERD as below. (5) GERD (gastroesophageal reflux disease): Suspected. Tums given in ER with some relief. Start famotidine 20mg PO daily. Follow up with PCP. Avoid spicy and acidic foods. (6) History of CVA (cerebrovascular accident): Not known to patient but old infarct on prior CT imaging with (7) Osteoporosis: Continue raloxifene. Ca appears WNL. Will defer vitamin D testing to her outpatient physician if felt to be necessary as already on supplementation for this. (8) DVT prophylaxis: SCDs. Suspected short stay overnight and mobile therefore will defer chemical prophylaxis at this time. Admission and Anticipated Discharge Date Admission Date: 04/17/2020 Anticipated date of discharge: 04/18/20 History of Present Illness Chief Complaint: High blood pressure, palpitations, chest heaviness Primary Care Provider: DO Jaelyn Sewell Donald is a 79 year old female who present to the ER via private vehicle due to elevated blood pressure and palpitations. She notes on prior ER visits for this she also gets palpitations (separate to chest pressure described above). It usually resolves as her blood pressure is treated. She denies any history of heart rhythm abnormalities. The palpitations prompted her to measure her blood pressure which was elevated. She called her PCP and recommended coming to the ER. She denies any headache or vision changes with this high blood pressure but is having chest pain. Initially she had denied any chest pain to the ER physician but when it came to discharging her from the ER she mentioned chest heaviness she has been having for the past 3 days. This started on Monday during the day while sitting outside with her grandson but became much more severe the same night. It has not gone away since then but waxed and waned in severity lasting hours at a time. Max severity 8/10, currently 6/10 (prior to nitroglycerin). She describes it as tightness, heaviness and burning on the centre and left of anterior chest wall. No radiation. Associated nausea (occasionally) and belching. Denies any spicy or acidic foods when this started but did have pizza last night. She denies any shortness of breath, claudication, presyncope or syncope. No fevers, chills, shortness of breath or cough. No loss of taste or smell. No known COVID-19 exposure. She has been isolating by herself in her [place] apartment complex. We discussed her atypical (probably MSK) chest pain and option for discharge from the ER with diagnosis of hypertensive urgency which improved (at least temporarily with nitroglycerin) and starting her on carvedilol. She wished me to discuss further with her daughter Kandi and we both agreed since the patient lives alone, poor historian which makes diagnosis uncertain and has a significant history of side effects to starting new medications we will observe her overnight with likely discharge tomorrow. Allergies Allergy/AdvReac Type Severity Reaction Status Date / Time Sulfa (Sulfonamide Allergy Unknown Unknown Verified 04/17/20 09:47 Antibiotics) reaction amlodipine AdvReac RECURRENT Verified 04/17/20 09:47 LLQ PAIN hydrochlorothiazide AdvReac HYPONATRIMI Verified 04/17/20 09:47 A simvastatin AdvReac Muscle Pain Verified 04/17/20 09:47 Home Medications Home Medications Medication Instructions Recorded Confirmed Type aspirin [Aspirin Low Dose] 81 mg PO Q OTHER DAY #0 05/23/15 04/17/20 History cholecalciferol (vitamin D3) 2,000 unit PO QAM #0 05/23/15 04/17/20 History magnesium 250 mg PO QAM #0 05/23/15 04/17/20 History raloxifene [Evista] 60 mg PO QAM #0 05/23/15 04/17/20 History furosemide 10 mg PO QAM 05/26/19 04/17/20 History lisinopril 20 mg tablet 30 mg PO QAM 10/24/19 04/17/20 History acetaminophen [Tylenol] 325 mg PO QID PRN 04/17/20 04/17/20 History Past Med/Surg History Medical History (Updated 04/17/20 @ 14:10 by Kg Iverson MD) Chest pain Fracture, rib (Acute) History of CVA (cerebrovascular accident) HTN (hypertension) (Chronic) Hyponatremia Scoliosis (Chronic) Surgical History (Updated 03/16/20 @ 10:01 by Edmund Garcia MD) History of back surgery History of cataract extraction History of colonoscopy History of loop electrical excision procedure (LEEP) Status post breast lumpectomy Social History Preferred Language: Greenlandic marital status: Current Living Situation: Alone current occupational status: retired Feels Safe at Home: Yes Smoking Status: Never smoker Hx Alcohol Use: Yes Alcohol type: wine Alcohol Intake Frequency: Weekly Alcohol Intake Frequency Comment: 2 glasses per week Hx Substance Use: No Review of Systems Review of Systems: All systems reviewed & are unremarkable except as noted in HPI & below Gastrointestinal: + change in bowel habits (increased BM without diarrhea) Physical Exam Constitutional: WD/WN, vitals as above no acute distress Eyes: PERRL, conjunctivae normal, anicteric sclerae ENMT: Ears: no external ear abnormality Nose: no external nose abnormality Neck: trachea midline, no thyromegaly Respiratory: normal respiratory effort, lungs clear to auscultation Cardiovascular: Rate/Rhythm: regular rate and regular rhythm (occasional skipped beat) Heart Sounds: no murmur Vessels: no JVD Extremities: normal capillary refill; no calf tenderness and no pedal edema Gastrointestinal (Abdomen): normal bowel sounds, soft, nontender, no hepatosplenomegaly Musculoskeletal: no cyanosis or clubbing, extremities motor strength 5/5 Skin: no rashes, warm and dry Neurologic: moves all extremities and awake; no focal motor deficits and not confused Speech / Cognition: normal speech Motor/Sensory: no tremor, no pronator drift and no sensory deficit Psychiatric: A+Ox3, euthymic affect Genitourinary: no CVA tenderness Lymphatic: no cervical lymphadenopathy and no subclavicular lymphadenopathy Results & Data Results & Data ([facility]) Vital Signs (Past 12 Hours) Vital Signs Temp Pulse Resp BP Pulse Ox 04/17/20 11:10 77 18 183/108 H 04/17/20 11:00 77 15 04/17/20 10:30 77 17 04/17/20 10:25 72 16 184/109 H 04/17/20 10:00 79 14 04/17/20 09:56 84 15 04/17/20 09:03 36.7 C 100 H 20 189/84 H 97 Code Status & VTE Plan Code Status Full VTE Prophylaxis Plan VTE Prophylaxis will be ordered: Yes Reason for no VTE drug order: Treatment not indicated PG Care Time/CCT Total # of Minutes Spent Total Time Spent with Patient: Total time spent is greater than 50% in coordination of care (as documented) at patient's floor/unit and/or counseling patient: Coding Level of Care Code 38258 Initial Inpt Care Lvl 3 Diagnoses Hypertensive urgency I16.0 Palpitations R00.2 Atypical chest pain R07.89 Costochondritis M94.0 GERD (gastroesophageal reflux disease) K21.9 History of CVA (cerebrovascular accident) Z86.73 Osteoporosis M81.0 Osteoporosis type: unspecified Presence of current pathological fracture: without current pathological fracture DVT prophylaxis Z29.9 (1) Osteoporosis Osteoporosis type: unspecified Presence of current pathological fracture: without current pathological fracture Qualified Code(s): M81.0 - Age-related osteoporosis without current pathological fracture
[2020-04-17] MEDS ORDERED: CALCIUM CARBONATE 500 MG CHEWABLE TAB PO STA (12:55)
[2020-04-17] MEDS ORDERED: carvediloL 3.125 MG TAB PO STA (12:58)
[2020-04-17] MEDS ORDERED: POTASSIUM CHLORIDE 20 MEQ TABCR PO STA (14:06)
[2020-04-17] MEDS ORDERED: ACETAMINOPHEN 325 MG TAB PO PRN (15:24)
[2020-04-17] MEDS ORDERED: FAMOTIDINE 20 MG TAB PO ONE (15:24)
--- NOTE | 2020-04-17 16:59 | Electrocardiogram Report ---
Test Reason : Blood Pressure : / mmHG Vent. Rate : 080 BPM Atrial Rate : 080 BPM P-R Int : 166 ms QRS Dur : 084 ms QT Int : 384 ms P-R-T Axes : 063 -78 024 degrees QTc Int : 442 ms Normal sinus rhythm Left axis deviation Inferior infarct (cited on or before 28-OCT-2019) Poor R wave progression, consider anterior OK vs. lead placement vs. LVH Abnormal ECG When compared with ECG of 28-OCT-2019 18:16, No significant change was found Confirmed by Garfield Newman ([id number]) on 04/17/2020 4:59:13 PM Referred By: REFERRED SELF Confirmed By:Garfield Newman
[2020-04-17] MEDS: carvediloL 3.125 MG TAB PO SCH (20:45)
[2020-04-18 06:25] LABS: Basophils # (auto) 0.02 K/uL (0-0.2); Basophils % (auto) 0.4 %; Eosinophils # (auto) 0.07 K/uL (0-0.5); Eosinophils % (auto) 1.2 %; Hematocrit (blood only) 35.3 % (37-47); Hemoglobin 11.7 g/dL (12.0-16.0); Lymphocytes # (auto) 1.88 K/uL (1.2-3.4); Lymphocytes % (auto) 33.5 %; Mean Corpuscular Hemoglobin 32.1 pg (25-34); Mean Corpuscular Hgb Conc 33.1 g/dL (32-36); Mean Corpuscular Volume 96.7 fL (80-100); Monocytes # (auto) 0.78 K/uL (0.11-0.59); Monocytes % (auto) 13.9 %; Neutrophils # (auto) 2.86 K/uL (1.4-6.5); Platelet Count 199 K/uL (130-400); RDW Coefficient of Variation 13.2 % (11.5-14.5); RDW Standard Deviation 46.4 fL (36.4-46.3); Red Blood Count 3.65 M/uL (4.2-5.4); White Blood Count 5.61 K/uL (4.8-10.8)
[2020-04-18 07:13] LABS: Alanine Aminotransferase 19 U/L (12-78); Albumin Globulin Ratio 0.8 (0.9-2); Albumin Level 3.1 gm/dl (3.4-5.0); Alkaline Phosphatase 39 U/L (45-117); Aspartate Aminotransferase 19 U/L (15-37); BUN Creatinine Ratio 15.5 (10-20); Bilirubin,Total 0.6 mg/dl (0.2-1); Blood Urea Nitrogen 14 mg/dl (7-18); Calcium 8.7 mg/dl (8.5-10.1); Carbon Dioxide 27 mmol/L (21-32); Chloride 105 mmol/L (98-107); Creatinine Clr Calc Pharmacy 41.9 ml/min; Est GFR (African American) 72.5; Est GFR (Non-African American) 62.5; Globulin 3.9 gm/dl (2.5-4.0); Glucose 94 mg/dl (70-99); Potassium 4.6 mmol/L (3.5-5.1); Sodium 136 mmol/L (136-145); Troponin I < 0.015 ng/ml (0-0.045)
[2020-04-18] MEDS: carvediloL 3.125 MG TAB PO SCH (07:42)
[2020-04-18] MEDS ORDERED: RALOXIFENE HCL 60 MG TAB PO SCH (09:00)
[2020-04-18] MEDS ORDERED: POTASSIUM CHLORIDE 20 MEQ TABCR PO SCH (09:00)
[2020-04-18] MEDS ORDERED: MAGNESIUM OXIDE 400 MG TAB PO SCH (09:00)
[2020-04-18] MEDS ORDERED: CHOLECALCIFEROL 1,000 UNITS 25 MCG TAB PO SCH (09:00)
[2020-04-18] MEDS ORDERED: FUROSEMIDE 20 MG TAB PO SCH (09:00)
[2020-04-18] MEDS ORDERED: lisinopriL 40 MG TAB PO SCH (09:00)
--- NOTE | 2020-04-18 15:08 | Discharge Summary ---
Date of Service April 18, 2020 Admission HPI Per Admitting Provider Jaelyn Bennett is a 79 year old female who present to the ER via private vehicle due to elevated blood pressure and palpitations. She notes on prior ER visits for this she also gets palpitations (separate to chest pressure described above). It usually resolves as her blood pressure is treated. She denies any history of heart rhythm abnormalities. The palpitations prompted her to measure her blood pressure which was elevated. She called her PCP and recommended coming to the ER. She denies any headache or vision changes with this high blood pressure but is having chest pain. Initially she had denied any chest pain to the ER physician but when it came to discharging her from the ER she mentioned chest heaviness she has been having for the past 3 days. This started on Monday during the day while sitting outside with her grandson but became much more severe the same night. It has not gone away since then but waxed and waned in severity lasting hours at a time. Max severity 8/10, currently 6/10 (prior to nitroglycerin). She describes it as tightness, heaviness and burning on the centre and left of anterior chest wall. No radiation. Associated nausea (occasionally) and belching. Denies any spicy or acidic foods when this started but did have pizza last night. She denies any shortness of breath, claudication, presyncope or syncope. No fevers, chills, shortness of breath or cough. No loss of taste or smell. No known COVID-19 exposure. She has been isolating by herself in [place]. We discussed her atypical (probably MSK) chest pain and option for discharge from the ER with diagnosis of hypertensive urgency which improved (at least temporarily with nitroglycerin) and starting her on carvedilol. She wished me to discuss further with her daughter Kandi and we both agreed since the patient lives alone, poor historian which makes diagnosis uncertain and has a significant history of side effects to starting new medications we will observe her overnight with likely discharge tomorrow. Principal Diagnosis rib related chest pain uncontrolled HTN Discharge Exam [facility] [place] [facility] at [facility] breathing unlabored no accessory muscles good effort skin no rashes no pallor or icterus neuro no focal deficits Discharge Data Allergies Allergy/AdvReac Type Severity Reaction Status Date / Time Sulfa (Sulfonamide Allergy Unknown Unknown Verified 04/17/20 09:47 Antibiotics) reaction amlodipine AdvReac RECURRENT Verified 04/17/20 09:47 LLQ PAIN hydrochlorothiazide AdvReac HYPONATRIMI Verified 04/17/20 09:47 A simvastatin AdvReac Muscle Pain Verified 04/17/20 09:47 Consultations 04/17/20 12:27 ED Decision to Admit Stat Hospital Course (1) Hypertensive urgency: with hindsight may have just been uncontrolled HTN - given noncardiac chest pain/negative troponins. for uncontrolled HTN - responded nicely to coreg - will continue, has PCP f/u this week (2) Palpitations: coreg should help - stable for home, outpatient follow up (3) Atypical chest pain: Reproducible by palp on admission. now totally resolved. negative troponins. lasted for ~1 1/2 days -- almost certainly musculoskeletal. (4) Costochondritis: vs intercostal spasm. gone. safe for home. (5) GERD (gastroesophageal reflux disease): Suspected. Tums given in ER with some relief. Start famotidine 20mg PO daily. Follow up with PCP. Avoid spicy and acidic foods. (6) History of CVA (cerebrovascular accident): Not known to patient but old infarct on prior CT imaging (7) Osteoporosis: Continue raloxifene. Ca appears WNL. Will defer vitamin D testing to her outpatient physician if felt to be necessary as already on supplementation for this. (8) DVT prophylaxis: SCDs utilized during her stay Total Time Total Time Spent Total Time Spent (In Minutes): <30 Discharge Plan Discharge Items Patient Disposition: Home - Self-Care Reason For Visit: HYPERTENSIVE URGENCY, CHEST PAIN Discharge Diagnosis: muscular chest pain, high blood pressure now under better control Activity: Resume your previous activity Non-emergency contact: Primary Care Provider Call non-emergency contact if: you have any medication questions Follow-up/Referrals: Claire Mazariegos DO [Primary Care Provider] - Diet: Regular Addtl Attending Provider Instructions: chest pain -fortunately the location/quality and reproducibility of your chest pain made it very consistent with muscular pain (a rib muscle spasm being most common); on top of that, the fact that the pain lasted for about a day and a half without letting up - combined with the hindsight of your heart enzymes (labwork - troponin levels) being normal was extremely reassurring (generally if someone has chest pain due to lack of blood flow to their heart, if the lack of blood flow lasts for more than maybe 20 minutes, there will eventually be signs of damage on troponin labs when we check them in succession as we did) blood pressure -your blood pressure was high enough to warrant further treatment - but fortunately the low dose of carvedilol (coreg) appears to have really helped nicely. as far as preventing heart attacks/strokes/kidney disease, medications like carvedilol really work well together with medications like lisinopril -- so for now we'd want to have you on both. -follow your blood pressure, at random, twice a day, for the next week - that way when you follow up with Dr Mazariegos, you'll be able to review a good array of the range your blood pressure runs. from there, she'll be able to guide you on keeping things "as is" vs changing dosing, etc -carvedilol is usually really well tolerated - especially at such a low dose (it goes to as high as about 25mg twice a day for common use, sometimes (rarely) even a little higher). sometimes when people first get started on it they can feel a few things: fatigue is not uncommon -- if you feel more fatigued/tired over the next few days, give it some time - usually that side effect goes away in about a week; if it doesn't then it would be time to change. another fairly common "startup" side effect is feeling weak/lightheaded/dizzy when first standing up - again if it doesn't go away in a few days to a week it would be time to change - but for the next few days to protect yourself from a fall, it's good practice to stay where you are for a minute or so when you first stand up (ie when you get out of bed, stay upright beside the bed for a minute or so, that way if you were to get lightheaded you can just sit back down; similar when you first get out of a chair, etc). Pending Studies at Discharge: No Stand-Alone Forms: [employer], Smoking Cessation Medications and DC Order Prescriptions: New carvedilol 3.125 mg Tablet 3.125 mg PO BID Qty: 60 RF: 0 Continued aspirin [Aspirin Low Dose] 81 mg Tablet,Delayed Release (Dr/Ec) 81 mg PO Q OTHER DAY Qty: 0 RF: 0 raloxifene [Evista] 60 mg Tablet 60 mg PO QAM Qty: 0 RF: 0 magnesium 250 mg Tablet 250 mg PO QAM Qty: 0 RF: 0 cholecalciferol (vitamin D3) 2,000 unit Tablet 2,000 unit PO QAM Qty: 0 RF: 0 lisinopril 20 mg tablet 30 mg PO QAM RF: 0 acetaminophen [Tylenol] 325 mg Tablet 325 mg PO QID PRN (Reason: Pain) RF: 0 furosemide 20 mg tablet 10 mg PO QAM RF: 0 Discharge Orders: Discharge Order (Routine); Ordered 04/18/20 Ordered By: Hill Calderon Admission Data Admit Date/Time: 04/17/20 13:49 Attending Provider: Hill Calderon Admit Provider: Kg Iverson Primary Care Provider: Claire Mazariegos Other Providers: Kg Iverson Other Interventions: Discharge Summary Assessment (RN) Last Done: 04/18/20 14:12 DC Date/Time DO NOT enter until pt leaves facility: 04/18/20 14:48 Coding Level of Care Code 78078 OBS Care - Discharge Diagnoses Hypertensive urgency I16.0 Palpitations R00.2 Atypical chest pain R07.89 Costochondritis M94.0 GERD (gastroesophageal reflux disease) K21.9 History of CVA (cerebrovascular accident) Z86.73 Osteoporosis M81.0 Osteoporosis type: unspecified Presence of current pathological fracture: without current pathological fracture DVT prophylaxis Z29.9
[2020-04-19] MEDS ORDERED: ASPIRIN 81 MG ECTAB PO SCH (09:00)
== END 2020-04-18 14:48 | disposition home or self-care (01) ==
LOC: ED 08:58 → 2W 08:58 → SUATTDRO 13:49 → 2W 14:22

== ENCOUNTER 2020-04-21 14:38 | Inpatient (IN) ==
[2020-04-21] MEDS ORDERED: fentaNYL citrate 100 MCG/2 ML VIAL IV PRN (16:28)
[2020-04-21] MEDS ORDERED: SODIUM CHLORIDE 0.9% 500 ML IV SCH (16:30)
--- NOTE | 2020-04-21 16:55 | XRay Report ---
XR chest 1V portable CLINICAL HISTORY: weakness COMPARISON STUDY: 04/17/2020 FINDINGS: The cardiac and mediastinal contours remain stable. There is no failure. There is no focal pulmonary consolidation. There are no pleural effusions. There is a thoracolumbar scoliosis. There ar e postsurgical changes of posterior spinal rodding. Multiple right fractures are again visualized.[ IMPRESSION: No active disease in the chest. ACT 112: Negative or not required by law. Electronically signed by: David Townsend M.D. 04/21/2020 4:54 PM
--- NOTE | 2020-04-21 16:58 | Emergency Department Note ---
Impression & Plan Dizziness, Acute hyponatremia, Abdominal pain, acute, left lower quadrant ED Provider Note NAME: REJI IRBY AGE: 79 SEX: F : 1940 ARRIVES VIA: Walk-In INFORMANT: Patient, ED PROVIDER(S): Garfield Burrell DO CHIEF COMPLAINT: Left-sided abdominal pain HPI: The patient is a 79-year-old female who presented to the emergency department at the request of her primary care physician for an evaluation of elevated blood pressure dizziness and left-sided abdominal pain. The patient was seen in our facility this weekend for similar complaints. At that time she was admitted to the hospital for further blood pressure management. She was started on carvedilol at a very low dose. She states that she has been compliant with this medication. The patient has been noticing ongoing left- sided abdominal pain over the last few days. She has a history of diverticulitis and feels that this is consistent with her diverticulitis. The patient is unsure if her blood pressure elevation is secondary to her pain but she called her primary care physician for a follow-up appointment was referred to the emergency department for further testing. The patient denies having any chest pain or difficulty breathing. She denies having any lower extremity pain or swelling. She denies having any headache or recent falls. ROS: See above HPI for pertinent positives & negatives. A total of 10 systems reviewed and were otherwise negative. PAST MEDICAL HISTORY: See Below PAST SURGICAL HISTORY: See Below FAMILY HISTORY: See Below SOCIAL HISTORY: See Below HOME MEDICATIONS: See Below ALLERGIES: See Below VITALS: See Below PHYSICAL EXAMINATION: GENERAL: Patient is awake alert in no acute distress patient is resting comfortably and showing no signs of anxiety EYES: The conjunctivae are clear. The pupils are round and reactive. EARS, NOSE, MOUTH AND THROAT: The nose is without any evidence of any deformity. Mucous membranes are moist. Tongue is midline. NECK: The neck is nontender and supple. RESPIRATORY: Normal respiratory effort is noted there is no evidence of wheezing rhonchi or rales CARDIOVASCULAR: Regular rate and rhythm noted there no murmurs rubs or gallops normal S1 normal S2. GASTROINTESTINAL: The abdomen is soft and mildly distended. There is left-sided tenderness to palpation but no guarding or rigidity. MUSCULOSKELETAL/EXTREMITIES: There is no evidence of gross deformity full range of motion is noted in the hips and shoulders. SKIN: There is no obvious evidence of any rash. There are no petechiae, pallor or cyanosis noted. NEUROLOGIC: Patient is awake alert and oriented x3 strength is symmetric patellar reflexes are 2+ bilaterally MEDICAL DECISION MAKING: The patient is a 79-year-old female who presented to the emergency department for an evaluation of generalized weakness dizziness and elevated blood pressure. The patient was seen in our facility this week and for similar complaints. At that time she was admitted for inpatient management. Patient was started on a new medication for blood pressure. The patient also had left lower quadrant abdominal pain. I did treat her pain with IV pain medication thinking this would help her blood pressure. She was evaluated multiple times. Her blood pressure improved somewhat but she still had considerable symptoms of dizziness. Ultimately she was found to have a significant drop in her sodium compared to her baseline. It is possible this is what is causing her symptoms at this time. I discussed her case with the on-call [facility] hospitalist. They have agreed to evaluate the patient in the emergency department for further management disposition. Triage Nursing notes reviewed. Prior medical records reviewed Vital Signs: reviewed and remarkable for elevated blood pressure Differential diagnosis: Etiologies such as appendicitis, diverticulitis, obstruction, inflammatory bowel disease, renal colic, PUD, biliary pathology, pancreatitis, mesenteric isch emia, aortic pathology, infections, genitourinary, UTI, perforated viscus, as well as others were entertained. ER treatment provided: See below Diagnostics interpreted by me: ECG: EKG was obtained in the emergency department. My interpretation is normal sinus rhythm at 70 bpm. There is no ectopy. There is an incomplete right bundle branch block pattern noted. This was compared to a tracing from April 17, 2020. No significant changes were noted. Cardiac Monitoring: An order was placed for continuous cardiac monitoring. The monitor shows a rate of 80 with sinus rhythm. Laboratory studies: As stated above and show below. Imaging studies: See below Consultation(s): 1930: I discussed this case with Dr. Fairchild [facility] She is agreed to evaluate the patient in the emergency department for further management and disposition. Past Med/Surg History Medical History Chest pain Fracture, rib (Acute) History of CVA (cerebrovascular accident) HTN (hypertension) (Chronic) Hyponatremia Scoliosis (Chronic) Surgical History History of back surgery History of cataract extraction History of colonoscopy History of loop electrical excision procedure (LEEP) Status post breast lumpectomy Family History Mother Hearing loss Hypertension Other Family history non-contributory No family history of bleeding disorder Social History Preferred Language: Turkmen Communication Ability: Effective Ssrs Report Developer Required: No Beliefs That Will Affect Care: None marital status: Current Living Situation: Alone current occupational status: retired Feels Safe at Home: Yes Smoking Status: Never smoker Hx Alcohol Use: Yes Alcohol type: wine Alcohol Intake Frequency: Weekly Alcohol Intake Frequency Comment: 2 glasses per week Hx Substance Use: No Allergies Allergies Allergy/AdvReac Type Severity Reaction Status Date / Time Sulfa (Sulfonamide Allergy Unknown Unknown Verified 04/21/20 20:41 Antibiotics) reaction amlodipine AdvReac RECURRENT Verified 04/21/20 20:41 LLQ PAIN hydrochlorothiazide AdvReac HYPONATRIMI Verified 04/21/20 20:41 A simvastatin AdvReac Muscle Pain Verified 04/21/20 20:41 Home Meds Home Medications Medication Instructions Recorded Confirmed aspirin [Aspirin Low Dose] 81 mg PO Q OTHER DAY #0 05/23/15 04/21/20 cholecalciferol (vitamin D3) 2,000 unit PO QAM #0 05/23/15 04/21/20 magnesium 250 mg PO QAM #0 05/23/15 04/21/20 raloxifene [Evista] 60 mg PO QAM #0 05/23/15 04/21/20 furosemide 10 mg PO QAM 05/26/19 04/21/20 lisinopril 20 mg tablet 30 mg PO QAM 10/24/19 04/21/20 acetaminophen [Tylenol] 325 mg PO QID PRN 04/17/20 04/21/20 Previous Rx's Medication Instructions Recorded carvedilol 3.125 mg PO BID #60 tab 04/18/20 Results & Data (ED) Vital Signs Vital Signs - 24 hr 04/21/20 14:54 04/21/20 17:42 04/21/20 17:43 Temperature 36.7 C Temperature Source Oral Pulse Rate 79 83 Respiratory Rate 16 16 Blood Pressure 174/90 H 171/97 H Blood Pressure Mean 118 119 Pulse Oximetry 98 100 Oxygen Delivery Method Room Air Room Air Sepsis Recent Fever Within 48 Hours No Sepsis New/Unexplained Change in Mental Status No Sepsis Action Taken by Nursing No Action Required 04/21/20 18:00 04/21/20 19:00 Temperature Temperature Source Pulse Rate 75 78 Respiratory Rate 12 13 Blood Pressure 166/94 H 170/93 H Blood Pressure Mean 112 109 Pulse Oximetry 95 Oxygen Delivery Method Sepsis Recent Fever Within 48 Hours Sepsis New/Unexplained Change in Mental Status Sepsis Action Taken by Long Term Medications Current Medication List: was personally reviewed by me Laboratory Data Attestation: I reviewed the patient's lab results. Result diagrams: 04/21/20 16:50 04/21/20 16:50 Lab Results 04/21/20 04/21/20 04/21/20 Range/Units 16:50 16:50 16:50 WBC 6.55 (4.8-10.8) K/uL RBC 4.03 L (4.2-5.4) M/uL Hgb 13.2 (12.0-16.0) g/dL POC Hgb (12.0-16.0) g/dl Hct 38.4 (37-47) % POC Hct (37-47) % MCV 95.3 (80-100) fL MCH 32.8 (25-34) pg MCHC 34.4 (32-36) g/dL RDW Std Deviation 43.9 (36.4-46.3) fL RDW Coeff of Denys 12.8 (11.5-14.5) % Plt Count 248 (130-400) K/uL MPV 9.8 (7.4-10.4) fL Immature Gran % (Auto) 0.0 % Neut % (Auto) 65.3 % Lymph % (Auto) 22.4 % [place] % (Auto) 11.6 % Eos % (Auto) 0.5 % Baso % (Auto) 0.2 % Immature Gran # (Auto) 0.00 (0.00-0.02) K/uL Neut # (Auto) 4.28 (1.4-6.5) K/uL Lymph # (Auto) 1.47 (1.2-3.4) K/uL [place] # (Auto) 0.76 H (0.11-0.59) K/uL Eos # (Auto) 0.03 (0-0.5) K/uL Baso # (Auto) 0.01 (0-0.2) K/uL PT 11.7 (9.0-12.0) Seconds INR 1.1 (0.9-1.1) APTT 25.3 (21.0-31.0) Seconds PTT Ratio 0.9 POC Sodium (135-144) mmol/L Sodium 128 L (136-145) mmol/L POC Potassium (3.3-5.0) mmol/L Potassium 4.0 (3.5-5.1) mmol/L POC Chloride (101-112) mmol/L Chloride 95 L (98-107) mmol/L Carbon Dioxide 27 (21-32) mmol/L POC Total CO2 (24-31) mmol/L Anion Gap 6.0 (3-11) POC Anion Gap (16-25) mmol/L POC BUN (7-18) mg/dl BUN 14 (7-18) mg/dl Creatinine 0.86 (0.6-1.2) mg/dl POC Creatinine (0.6-1.3) mg/dl Est Cr Clr Drug Dosing 43.3 ml/min Est GFR ( Amer) 75.5 Est GFR (Non-Af Amer) 65.2 BUN/Creatinine Ratio 16.7 (10-20) Glucose 94 (70-99) mg/dl POC Glucose (other) (70-99) mg/dl Calcium 9.6 (8.5-10.1) mg/dl POC Ioniz Calcium Cathy (1.12-1.32) mmol/l Magnesium 1.9 (1.8-2.4) mg/dl Total Bilirubin 0.6 (0.2-1) mg/dl AST 19 (15-37) U/L ALT 21 (12-78) U/L Alkaline Phosphatase 49 (45-117) U/L Troponin I < 0.015 (0-0.045) ng/ml Total Protein 8.1 (6.4-8.2) gm/dl Albumin 3.9 (3.4-5.0) gm/dl Globulin 4.2 H (2.5-4.0) gm/dl Albumin/Globulin Ratio 0.9 (0.9-2) TSH 0.773 (0.300-4.500) uIu/ml Urine Color Urine Appearance (Clear) Urine pH (4.5-7.5) Ur Specific Rose (1.000-1.030) Urine Protein (Negative) Urine Glucose (UA) (Negative) Urine Ketones (Negative) Urine Blood (Negative) Urine Nitrite (Negative) Urine Bilirubin (Negative) Urine Urobilinogen (Negative) Ur Leukocyte Esterase (Negative) 04/21/20 04/21/20 Range/Units 16:54 18:20 WBC (4.8-10.8) K/uL RBC (4.2-5.4) M/uL Hgb (12.0-16.0) g/dL POC Hgb 14.3 (12.0-16.0) g/dl Hct (37-47) % POC Hct 42 (37-47) % MCV (80-100) fL MCH (25-34) pg MCHC (32-36) g/dL RDW Std Deviation (36.4-46.3) fL RDW Coeff of Denys (11.5-14.5) % Plt Count (130-400) K/uL MPV (7.4-10.4) fL Immature Gran % (Auto) % Neut % (Auto) % Lymph % (Auto) % [place] % (Auto) % Eos % (Auto) % Baso % (Auto) % Immature Gran # (Auto) (0.00-0.02) K/uL Neut # (Auto) (1.4-6.5) K/uL Lymph # (Auto) (1.2-3.4) K/uL [place] # (Auto) (0.11-0.59) K/uL Eos # (Auto) (0-0.5) K/uL Baso # (Auto) (0-0.2) K/uL PT (9.0-12.0) Seconds INR (0.9-1.1) APTT (21.0-31.0) Seconds PTT Ratio POC Sodium 129 L (135-144) mmol/L Sodium (136-145) mmol/L POC Potassium 4.1 (3.3-5.0) mmol/L Potassium (3.5-5.1) mmol/L POC Chloride 94 L (101-112) mmol/L Chloride (98-107) mmol/L Carbon Dioxide (21-32) mmol/L POC Total CO2 24 (24-31) mmol/L Anion Gap (3-11) POC Anion Gap 16.0 (16-25) mmol/L POC BUN 14 (7-18) mg/dl BUN (7-18) mg/dl Creatinine (0.6-1.2) mg/dl POC Creatinine 0.8 (0.6-1.3) mg/dl Est Cr Clr Drug Dosing ml/min Est GFR ( Amer) Est GFR (Non-Af Amer) BUN/Creatinine Ratio (10-20) Glucose (70-99) mg/dl POC Glucose (other) 103 H (70-99) mg/dl Calcium (8.5-10.1) mg/dl POC Ioniz Calcium Cathy 1.20 (1.12-1.32) mmol/l Magnesium (1.8-2.4) mg/dl Total Bilirubin (0.2-1) mg/dl AST (15-37) U/L ALT (12-78) U/L Alkaline Phosphatase (45-117) U/L Troponin I (0-0.045) ng/ml Total Protein (6.4-8.2) gm/dl Albumin (3.4-5.0) gm/dl Globulin (2.5-4.0) gm/dl Albumin/Globulin Ratio (0.9-2) TSH (0.300-4.500) uIu/ml Urine Color Yellow Urine Appearance Clear (Clear) Urine pH 8.0 H (4.5-7.5) Ur Specific Rose 1.024 (1.000-1.030) Urine Protein Negative (Negative) Urine Glucose (UA) Negative (Negative) Urine Ketones Negative (Negative) Urine Blood Negative (Negative) Urine Nitrite Negative (Negative) Urine Bilirubin Negative (Negative) Urine Urobilinogen Negative (Negative) Ur Leukocyte Esterase Negative (Negative) Administered Medications Fentanyl Citrate (Fentanyl Citrate) 50 mcg IV Q15M PRN PRN Reason: Pain Stop: 05/05/20 16:27 Last Admin: 04/21/20 17:23 Dose: 50 mcg Documented by: [id number] Ioversol (Optiray 320 100ml) 93 ml IV ONCE PRN PRN Reason: Interaction Checking Stop: 04/25/20 17:35 Last Admin: 04/21/20 17:36 Dose: 93 ml Documented by: [id number] Discontinued Medications Sodium Chloride (Nss) 500 mls @ 999 mls/hr IV .Q31M KARAN Stop: 04/21/20 17:00 Last Infusion: 04/21/20 17:56 Dose: 0 mls/hr Documented by: [id number] Admin: 04/21/20 17:22 Dose: 999 mls/hr Documented by: [id number] Imaging Data Radiologist's Impression: ABDOMEN AND PELVIS CT WITH IV CONTRAST CT DOSE: 228.41 mGy.cm HISTORY: Left lower quadrant abdominal pain. TECHNIQUE: Multiaxial CT images of the abdomen and pelvis were performed following the use of intravenous contrast. A dose lowering technique was utilized adhering to the principles of ALARA. COMPARISON STUDY: Abdomen and pelvis CT 05/26/2019. FINDINGS: Small fat-containing left-sided Bochdalek hernia. The right lung base is clear. No pneumoperitoneum. No pneumatosis. Old, healed left pubic ring fracture. Posterior spinal rods within the visualized thoracolumbar spine likely for the patient's levoscoliosis. The liver, gallbladder, spleen, adrenal glands, pancreas, and kidneys appear unremarkable. No hydronephrosis. Suboptimal evaluation of the abdomen and pelvis due to the metallic artifact from the patient's spinal rods. However, there is no definite bowel wall thickening or obstruction. Normal caliber appendix. The bladder, uterus, bilateral adnexa are unremarkable. Colonic diverticulosis. No evidence for diverticulitis. No pelvic free fluid. IMPRESSION: 1. No bowel wall thickening or obstruction. 2. Normal appendix. 3. Colonic diverticulosis. No evidence for diverticulitis. ACT 112: Negative or not required by law. Electronically signed by: Roscoe Barrios M.D. 04/21/2020 5:43 PM Dictated: 04/21/201738 Transcribed: 04/21/201738 XR chest 1V portable CLINICAL HISTORY: weakness COMPARISON STUDY: 04/17/2020 FINDINGS: The cardiac and mediastinal contours remain stable. There is no failure. There is no focal pulmonary consolidation. There are no pleural effusions. There is a thoracolumbar scoliosis. There are postsurgical changes of posterior spinal rodding. Multiple right fractures are again visualized.[ IMPRESSION: No active disease in the chest. ACT 112: Negative or not required by law. Electronically signed by: David Townsend M.D. 04/21/2020 4:54 PM Dictated: 04/21/201652 Transcribed: 04/21/201652 Blood Pressure Blood Pressure Findings: Elevated blood pressure Blood Pressure Disposition: further management by hospitalist Discharge Plan Visit Data Chief Complaint: Hypertension Stated Complaint: HYPERTENSION ED Provider: Garfield Burrell Discharge Problem: Dizziness, Acute hyponatremia, Abdominal pain, acute, left lower quadrant Patient Disposition: Being Evaluated by Hospitalist Condition: Good Forms Stand Alone Forms: [employer] Prescriptions Prescriptions: No Action aspirin [Aspirin Low Dose] 81 mg Tablet,Delayed Release (Dr/Ec) 81 mg PO Q OTHER DAY Qty: 0 RF: 0 raloxifene [Evista] 60 mg Tablet 60 mg PO QAM Qty: 0 RF: 0 magnesium 250 mg Tablet 250 mg PO QAM Qty: 0 RF: 0 cholecalciferol (vitamin D3) 2,000 unit Tablet 2,000 unit PO QAM Qty: 0 RF: 0 lisinopril 20 mg tablet 30 mg PO QAM RF: 0 acetaminophen [Tylenol] 325 mg Tablet 325 mg PO QID PRN (Reason: Pain) RF: 0 carvedilol 3.125 mg Tablet 3.125 mg PO BID Qty: 60 RF: 0 furosemide 20 mg tablet 10 mg PO QAM RF: 0 Referrals Referrals: Claire Mazariegos DO [Primary Care Provider] -
[2020-04-21 17:02] LABS: Basophils # (auto) 0.01 K/uL (0-0.2); Basophils % (auto) 0.2 %; Eosinophils # (auto) 0.03 K/uL (0-0.5); Eosinophils % (auto) 0.5 %; Hematocrit (blood only) 38.4 % (37-47); Hemoglobin 13.2 g/dL (12.0-16.0); Lymphocytes # (auto) 1.47 K/uL (1.2-3.4); Lymphocytes % (auto) 22.4 %; Mean Corpuscular Hemoglobin 32.8 pg (25-34); Mean Corpuscular Hgb Conc 34.4 g/dL (32-36); Mean Corpuscular Volume 95.3 fL (80-100); Mean Platelet Volume 9.8 fL (7.4-10.4); Monocytes # (auto) 0.76 K/uL (0.11-0.59); Monocytes % (auto) 11.6 %; Neutrophils # (auto) 4.28 K/uL (1.4-6.5); Neutrophils % (auto) 65.3 %; Platelet Count 248 K/uL (130-400); RDW Coefficient of Variation 12.8 % (11.5-14.5); RDW Standard Deviation 43.9 fL (36.4-46.3); Red Blood Count 4.03 M/uL (4.2-5.4); White Blood Count 6.55 K/uL (4.8-10.8)
[2020-04-21 17:06] LABS: iSTAT Creatinine 0.8 mg/dl (0.6-1.3); iSTAT Hemoglobin 14.3 g/dl (12.0-16.0); iSTAT Ionized Calcium 1.2 mmol/l (1.12-1.32); iSTAT Potassium 4.1 mmol/L (3.3-5.0)
[2020-04-21 17:12] LABS: INR 1.1 (0.9-1.1); Partial Thromboplastin Ratio 0.9; Partial Thromboplastin Time 25.3 Seconds (21.0-31.0); Prothrombin Time 11.7 Seconds (9.0-12.0)
[2020-04-21 17:24] LABS: Alanine Aminotransferase 21 U/L (12-78); Albumin Level 3.9 gm/dl (3.4-5.0); Aspartate Aminotransferase 19 U/L (15-37); BUN Creatinine Ratio 16.7 (10-20); Blood Urea Nitrogen 14 mg/dl (7-18); Calcium 9.6 mg/dl (8.5-10.1); Carbon Dioxide 27 mmol/L (21-32); Chloride 95 mmol/L (98-107); Creatinine Clr Calc Pharmacy 43.3 ml/min; Est GFR (African American) 75.5; Est GFR (Non-African American) 65.2; Glucose 94 mg/dl (70-99); Magnesium 1.9 mg/dl (1.8-2.4); Sodium 128 mmol/L (136-145)
[2020-04-21 17:34] LABS: Albumin Globulin Ratio 0.9 (0.9-2); Alkaline Phosphatase 49 U/L (45-117); Bilirubin,Total 0.6 mg/dl (0.2-1); Globulin 4.2 gm/dl (2.5-4.0); Thyroid Stimulating Hormone 0.773 uIu/ml (0.300-4.500); Total Protein 8.1 gm/dl (6.4-8.2); Troponin I < 0.015 ng/ml (0-0.045)
[2020-04-21] MEDS ORDERED: IOVERSOL 100ml IV PRN (17:36)
--- NOTE | 2020-04-21 17:45 | CT Scan Report ---
ABDOMEN AND PELVIS CT WITH IV CONTRAST CT DOSE: 228.41 mGy.cm HISTORY: Left lower quadrant abdominal pain. TECHNIQUE: Multiaxial CT images of the abdomen and pelvis were performed following the use of intrave nous contrast. A dose lowering technique was utilized adhering to the principles of ALARA. COMPARISON STUDY: Abdomen and pelvis CT 05/26/2019. FINDINGS: Small fat-containing left-sided Bochdalek hernia. The right lung base is clear. No pneumope ritoneum. No pneumatosis. Old, healed left pubic ring fracture. Posterior spinal rods within the visu alized thoracolumbar spine likely for the patient's levoscoliosis. The liver, gallbladder, spleen, ad renal glands, pancreas, and kidneys appear unremarkable. No hydronephrosis. Suboptimal evaluation of the abdomen and pelvis due to the metallic artifact from the patient's spinal rods. However, there is no definite bowel wall thickening or obstruction. Normal caliber appendix. The bladder, uterus, bila teral adnexa are unremarkable. Colonic diverticulosis. No evidence for diverticulitis. No pelvic free fluid. IMPRESSION: 1. No bowel wall thickening or obstruction. 2. Normal appendix. 3. Colonic diverticulosis. No evidence for diverticulitis. ACT 112: Negative or not required by law. Electronically signed by: Roscoe Barrios M.D. 04/21/2020 5:43 PM
--- NOTE | 2020-04-21 19:59 | History & Physical Report ---
Date of Service April 21, 2020 Assessment & Plan (1) Acute hyponatremia: Jaelyn is a 79-year-old female with a past medical history of CVA, GERD, hypertension, and hyponatremia who presents with several days of increased fatigue and abdominal pain similar to her past episodes of diverticulitis and with elevated blood pressure to 200/100 at home and who is hyponatremic on presentation to the ED. Hyponatremia with global weakness and fatigue - Sodium acutely decreased to 128, last 136 over the weekend Patient endorses increased global fatigue and weakness without focal weakness No headache, no signs of seizure Patient reports she eats a normal diet and is currently hungry, no "tea and toast "history Gentle fluid repletion, NSS 80 cc/h Urine osmole's, serum osmoles, urine sodium pending TSH 0.773 - BMP qAM Hypertension Patient with home blood pressure of 200/103 acutely in the setting of abdominal pain Patient blood pressure decreasing, currently 166 without antihypertensive medication but with treatment of abdominal pain on admission Patient reports history of lightheadedness/dizziness. Will defer adjustments to antihypertensives and follow patient's blood pressure overnight with pain control Continue carvedilol 3.125 mg p.o. twice daily Continue lisinopril 30 mg daily Continue aspirin 81 mg daily Troponin negative -EKG with normal sinus rhythm no acute ST changes, no acute T wave inversions or other signs of ischemia. Heart rate 70, QTc 416. Abdominal pain Resolved at time of HPI and physical exam CTabdomen shows diverticulosis without evidence of diverticulitis or other acute pathology Patient reports increased gas, some belching, and flatus. Patient's pain may have been 2/2 gas distention now improving. No signs of SBO on imaging Follow clinically at this time Lipase pending No indication for antibiotics at this time DVT prophylaxis: Heparin 5000 twice daily Diet: Heart healthy CODE STATUS: Full code Disposition: Medical/surgical (2) HTN (hypertension): (3) GERD (gastroesophageal reflux disease): (4) History of CVA (cerebrovascular accident): (5) Osteoporosis: (6) Bilateral sensorineural hearing loss: (7) Abdominal pain: History of Present Illness Chief Complaint: Left-sided abdominal pain, hypertension Primary Care Provider: Claire Mazariegos DO Jaelyn is a 79-year-old female with a past medical history of CVA, GERD, hypertension, and hyponatremia who presents with several days of increased fatigue and abdominal pain similar to her past episodes of diverticulitis and w ith elevated blood pressure to 200/100 at home. Answer reports her abdominal pain started 2 to 3 days ago and feels like a strong ache in her left lower quadrant. She reports it came on suddenly and felt like a 10/10 ache with no noted remitting or exacerbating factors. Her pain did not radiate. She has not had any fevers, chills, night sweats. She checked her blood pressure and noted that it was 200/103 which is very high for her, her normal is systolic 140s to 150s. She did not attempt any treatment. Symptoms occurred prior to dinner and lasted through dinner, she is not sure if there is an association with her meal. She was recently seen at [facility] for hypertension and started on carvedilol 3.125 mg twice daily. She reports she has been taking this and has not missed any doses. She also takes lisinopril and Lasix daily. She denies chest pain, chest pressure, shortness of breath, cough, diarrhea, constipation, melena, bright red blood per rectum, headache, vision change, acute hearing change. She endorses intermittent vertigo at baseline which has not been bothersome to her recently. She endorses a feeling of palpitations during her episode of abdominal pain. She denies other symptoms. Medical history: Reviewed Surgical history: Reviewed Medications: Reviewed Allergies: Reviewed. Of note severe rash to sulfa. Social: Denies current or former tobacco use. Rare alcohol use. Denies recreational drug use. She lives by herself in a long term facility, no problems ambulating around her home. CODE STATUS: Full code. She reports her decision maker would be her daughter Kandi reachable at [phone] in the event of an emergency. Allergies Allergy/AdvReac Type Severity Reaction Status Date / Time Sulfa (Sulfonamide Allergy Unknown Unknown Verified 04/21/20 20:41 Antibiotics) reaction amlodipine AdvReac RECURRENT Verified 04/21/20 20:41 LLQ PAIN hydrochlorothiazide AdvReac HYPONATRIMI Verified 04/21/20 20:41 A simvastatin AdvReac Muscle Pain Verified 04/21/20 20:41 Home Medications Home Medications Medication Instructions Recorded Confirmed Type aspirin [Aspirin Low Dose] 81 mg PO Q OTHER DAY #0 05/23/15 04/21/20 History cholecalciferol (vitamin D3) 2,000 unit PO QAM #0 05/23/15 04/21/20 History magnesium 250 mg PO QAM #0 05/23/15 04/21/20 History raloxifene [Evista] 60 mg PO QAM #0 05/23/15 04/21/20 History furosemide 10 mg PO QAM 05/26/19 04/21/20 History lisinopril 20 mg tablet 30 mg PO QAM 10/24/19 04/21/20 History acetaminophen [Tylenol] 325 mg PO QID PRN 04/17/20 04/21/20 History carvedilol 3.125 mg PO BID #60 tab 04/18/20 04/21/20 Rx Past Med/Surg History Medical History Chest pain Fracture, rib (Acute) History of CVA (cerebrovascular accident) HTN (hypertension) (Chronic) Hyponatremia Scoliosis (Chronic) Surgical History History of back surgery History of cataract extraction History of colonoscopy History of loop electrical excision procedure (LEEP) Status post breast lumpectomy Family History Mother Hearing loss Hypertension Other Family history non-contributory No family history of bleeding disorder Social History Preferred Language: Kosovan Communication Ability: Effective Senior Director Finance Required: No Beliefs That Will Affect Care: None marital status: Current Living Situation: Alone current occupational status: retired Feels Safe at Home: Yes Smoking Status: Never smoker Hx Alcohol Use: Yes Alcohol type: wine Alcohol Intake Frequency: Weekly Alcohol Intake Frequency Comment: 2 glasses per week Hx Substance Use: No Review of Systems Review of Systems: Constitutional: Denies fever, chills. Endorses fatigue Eyes: Denies double vision, vision change, eye pain ENT: Denies ear pain, sore throat, sinus pain Cardiovascular: Denies Chest pain, chest pressure, extremity swelling. Endorses palpitations Respiratory: Denies shortness of breath, cough, sputum production, difficulty breathing Gastrointestinal: See HPI Genitourinary: Denies pain with urination, urinary urgency, urinary frequency Musculoskeletal: Denies muscle aches/pain, joint aches/pain Integumentary:Denies rash, lesions, bruising Neurological: Denies headache, numbness, tingling, focal weakness Physical Exam Physical Exam: General: A&Ox3. NAD. Cooperative. HEENT: Atraumatic, normocephalic. PERLAA. Visual acuity and hearing grossly intact. EoMs intact. No facial asymmetry. Pulm: CTAB A&P. -wheezes, -rales, -rhonchi. Symmetrical chest rise. No increase work of breathing. No respiratory distress. Cardiac: RRR, -mrg. Radial pulses intact and symmetrical. Abdominal: Nontender, nondistended, soft. BS present. Extremity: Moves all extremities equally. Sensation to soft touch intact in upper and lower extremities .Tubing Assembler strength, elbow flexion/extension, ankle dorsiflexion/plantarflexion intact 5/5. PT pulses intact bilaterally. CN II: Visual trevizo are full to confrontation. Pupils are equal and react to light and accomidation. Visual acuity grossly intact. CN III, IV, : At primary gaze, there is no eye deviation. EoM intact without nystagmus. No visual field cuts. CN V: Facial sensation is intact to soft touch in all 3 divisions bilaterally. CN VII: No facial asymmetry, full strength to eyebrow raise, smile, eye close, and cheek puff. CN VII: Hearing is grossly intact. CN IX, X: Palate elevates symmetrically. Phonation is normal without dysarthria. CN XI: Head turning and shoulder shrug are intact CN XII: Tongue protrudes midline. Sensory: Light touch, pinprick intact in upper and low extremities without deficit or asymmetry. Strength: RUE: Shoulder flexion/extension/internal rotation/external rotation, elbow flexion/extension, finger flexion/extension, automobile damage field appraiser strength, interosseous 5/5 LUE: Shoulder flexion/extension/internal rotation/external rotation, elbow flexion/extension, finger flexion/extension, automobile damage field appraiser strength, interosseous 5/5 RLE: Ankle plantar flexion/dorsiflexion 5/5 LLE: Ankle plantar flexion/dorsiflexion 5/5 Results & Data Results & Data ([facility]) Vital Signs (Past 12 Hours) Vital Signs Temp Pulse Resp BP Pulse Ox 04/21/20 18:00 75 12 166/94 H 04/21/20 17:43 100 04/21/20 17:42 83 16 171/97 H 04/21/20 14:54 36.7 C 79 16 174/90 H 98 Supervising Physician Co-Signing Physician Notes Patietn seen and examined, chart reviewed, case discussed with Dr. Inman and I agree with his assessment and plan as documented above. Briefly, patient is a pleasant 79yo C female presenting with fairly severe LLQ abdominal pain over the last 2-3 days, hypertension and hyponatremia - patient also with diffuse weakness/fatigue, occasional imbalance and gait instability. On exam she is afebrile, hypertensive to 166/92 otherwise HD stable. Resting comfortably in bed, NAD Skin -warm, dry, intact, no rashes/lesions HEENT - NC/AT, PERRL, EOMI, MMM, neck supple Heart - +S1/S2, regular, no m/r/g Lungs - CTA, no rales/rhonchi/wheezes Abd - +BS, soft, NT/ND Ext - No edema Neuro - no deficits noted Labs and images reviewed - significant for Nc=546 CT with diverticulosis, no diverticulitis Assessment/Plan - 79yo C female presenting with abdominal pain, found to have moderate hyponatremia with Ar=461. Na possibly contributing to mild symptoms of weakness/fatigue/gait instability. No seizure. No need for aggressive management of Na - Admit to medical floor -Workup of hyponatremia to include urine/serum osm and Na levels -BP control -Remainder of plan as above Resident Activity Tracking Resident Involvement: Resident Care Provided Care Provided: Adult Hospital Medicine (1) Osteoporosis Osteoporosis type: unspecified Presence of current pathological fracture: without current pathological fracture Qualified Code(s): M81.0 - Age-related osteoporosis without current pathological fracture (2) HTN (hypertension) Hypertension type: unspecified Qualified Code(s): I10 - Essential (primary) hypertension
[2020-04-21 20:33] LABS: Appearance Urine Clear (Clear); Bilirubin Urine Negative (Negative); Blood Urine Negative (Negative); Color Urine Yellow; Glucose Urine UA Negative (Negative); Ketones Urine Negative (Negative); Leukocyte Esterase Urine Negative (Negative); Nitrite Urine Negative (Negative); Protein Urine Negative (Negative); Specific Gravity Urine 1.024 (1.000-1.030); Urobilinogen Urine Negative (Negative)
[2020-04-21] MEDS ORDERED: ACETAMINOPHEN 325 MG TAB PO PRN ×2 (21:41)
[2020-04-21] MEDS ORDERED: ONDANSETRON INJ 2 MG/ML 2 ML VIAL IV PRN (21:41)
[2020-04-21 22:32] LABS: BUN Creatinine Ratio 13.8 (10-20); Est GFR (African American) 64.5; Est GFR (Non-African American) 55.6; Potassium 3.7 mmol/L (3.5-5.1)
[2020-04-21] MEDS: carvediloL 3.125 MG TAB PO SCH (22:37)
[2020-04-21] MEDS: SODIUM CHLORIDE 0.9% 1000ML 1,000 ML IV SCH (22:37)
[2020-04-21] MEDS: HEPARIN SOD 5,000 UNIT/0.5 ML VIAL SQ SCH (22:46)
--- NOTE | 2020-04-22 00:09 | Billing Data ---
Date of Service April 21, 2020 Coding Level of Care Code 90965 Initial Inpt Care Lvl 3
[2020-04-22 07:40] LABS: Basophils # (auto) 0.03 K/uL (0-0.2); Basophils % (auto) 0.6 %; Eosinophils # (auto) 0.08 K/uL (0-0.5); Eosinophils % (auto) 1.6 %; Hemoglobin 12.1 g/dL (12.0-16.0); Immature Granulocytes # (auto) 0.01 K/uL (0.00-0.02); Immature Granulocytes % (auto) 0.2 %; Lymphocytes % (auto) 38.7 %; Mean Corpuscular Hemoglobin 32.7 pg (25-34); Mean Corpuscular Hgb Conc 33.6 g/dL (32-36); Mean Corpuscular Volume 97.3 fL (80-100); Mean Platelet Volume 10.1 fL (7.4-10.4); Monocytes % (auto) 14.3 %; Neutrophils # (auto) 2.19 K/uL (1.4-6.5); Neutrophils % (auto) 44.6 %; Platelet Count 217 K/uL (130-400); RDW Coefficient of Variation 13.1 % (11.5-14.5); RDW Standard Deviation 45.9 fL (36.4-46.3); White Blood Count 4.91 K/uL (4.8-10.8)
--- NOTE | 2020-04-22 08:39 | Hospitalist Progress Note ---
Date of Service April 22, 2020 Assessment & Plan (1) Acute hyponatremia: modest improvement overnight, random urine sodium is elevated suggesting lack of sodium conservation, continue fluid restriction stop diuretic (2) HTN (hypertension): Initially blood pressure was improved in the morning however escalated throughout the day consistent with her anxiety. Patient feels she is having an intolerance to carvedilol in her blood pressure has been poorly controlled with heart rates in the 60s. Such we will stop her carvedilol escalate her lisinopril and add clonidine. I believe anxiety is a large component of this patient's blood pressure related issues. 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 No bowel wall thickening or obstruction. 2. Normal appendix. 3. Colonic diverticulosis. No evidence for diverticulitis Admission and Anticipated Discharge Date Admission Date: April 21, 2020 Subjective this pt has complaints of luq pain that on exam seems to be correlation with lower ribs, she has no complaints consistent with her hypertension. Review of Systems 2 Review of Systems: Mild to moderate distress and anxiety with minor fatigue no headache, blurry or double vision no speech or swallowing issues no chest pain, pressure or palpitations no shortness of breath, cough or wheezes Left upper quadrant abdominal pain, described as an ache, reproducible on exam, no nausea or vomiting, no diarrhea or constipation no dysuria, hematuria or frequency no focal joint pain or swelling no back pain, CVA tenderness or radicular pain no bruising, bleeding or rashes no focal signs of weakness or numbness or altered sensation Physical Exam Physical Exam: The patient appeared well nourished and normally developed. Vital signs as documented. Head exam is normocephalic atraumatic no scleral icterus Neck is without JVD, thyromegaly, or carotid bruits. Lungs are clear to auscultation, no focal loss of breath sounds Cardiac exam, Rhythm is regular.. No murmurs, rubs or gallops. Abdominal exam reveals normal bowel sounds, soft Patient has reproducible tenderness in her left lower rib cage there is no splenomegaly hepatomegaly abdominal bruits or masses there is no rebound guarding or tenderness Extremities are nonedematous and both pedal pulses are normal. Neurologic exam is alert and oriented, no focal loss of strength or sensation Skin is without bruises or rashes Psychologically is without concerns for anxiety or depression Results & Data Results & Data ([facility]) Vital Signs (Past 12 Hours) Vital Signs Temp Pulse Resp BP Pulse Ox 04/22/20 07:04 97.5 F L 64 18 116/75 100 04/21/20 23:14 97.7 F 62 16 100/61 97 04/21/20 21:41 97.5 F L 16 150/76 H 99 PG Care Time/CCT Total # of Minutes Spent Total Time Spent with Patient: Total time spent is greater than 50% in coordination of care (as documented) at patient's floor/unit and/or counseling patient: Coding Level of Care Code 68568 Subseq Hosp Care Lvl 3 Diagnoses Acute hyponatremia E87.1 HTN (hypertension) I10 Hypertension type: unspecified GERD (gastroesophageal reflux disease) K21.9 History of CVA (cerebrovascular accident) Z86.73 Osteoporosis M81.0 Osteoporosis type: unspecified Presence of current pathological fracture: without current pathological fracture Bilateral sensorineural hearing loss H90.3 Abdominal pain R10.9 (1) Osteoporosis Osteoporosis type: unspecified Presence of current pathological fracture: without current pathological fracture Qualified Code(s): M81.0 - Age-related osteoporosis without current pathological fracture (2) HTN (hypertension) Hypertension type: unspecified Qualified Code(s): I10 - Essential (primary) hypertension
--- NOTE | 2020-04-22 08:56 | Electrocardiogram Report ---
Test Reason : Blood Pressure : / mmHG Vent. Rate : 070 BPM Atrial Rate : 070 BPM P-R Int : 178 ms QRS Dur : 082 ms QT Int : 386 ms P-R-T Axes : 061 -77 021 degrees QTc Int : 416 ms Normal sinus rhythm Left axis deviation Inferior infarct (cited on or before 28-OCT-2019) Abnormal ECG When compared with ECG of 17-APR-2020 09:51, No significant change was found Confirmed by Maxi Tubbs ([id number]) on 04/22/2020 8:56:08 AM Referred By: REFERRED SELF Confirmed By:Maxi Tubbs
[2020-04-22] MEDS ORDERED: FUROSEMIDE 20 MG TAB PO SCH (09:00)
[2020-04-22] MEDS ORDERED: lisinopriL 10 MG TAB PO SCH (09:00)
[2020-04-22] MEDS: carvediloL 3.125 MG TAB PO SCH (09:30)
[2020-04-22] MEDS: RALOXIFENE HCL 60 MG TAB PO SCH (09:30)
[2020-04-22] MEDS: HEPARIN SOD 5,000 UNIT/0.5 ML VIAL SQ SCH ×2 (09:30→21:01)
[2020-04-22] MEDS: MAGNESIUM OXIDE 400 MG TAB PO SCH (09:30)
[2020-04-22] MEDS ORDERED: lisinopriL 10 MG TAB PO ONE (11:23)
[2020-04-22] MEDS: SODIUM CHLORIDE 0.9% 1000ML 1,000 ML IV SCH (11:36)
--- NOTE | 2020-04-22 14:02 | Ultrasound Report ---
DOPPLER ULTRASOUND OF THE RENAL ARTERIES CLINICAL HISTORY: Hypertension. COMPARISON STUDY: Abdominal CT dated 04/21/2020. TECHNIQUE: Doppler sonography of the renal arteries was performed to assess renal artery stenosis. Im ages are reviewed in the transverse and longitudinal planes. FINDINGS: The kidneys demonstrate mild cortical atrophy and are normal in echotexture right kidney measures 8.7 cm in length and the left kidney measures 10.2 cm in length.. There is no hydronephrosis. On the right, intrarenal arterial resistive indices range from 0.65 to 0.92. Intrarenal arterial wave forms are normal with brisk upstrokes. The right renal arterial waveform is normal, and velocities wi thin the right renal artery measure up to 124 cm/sec. The right renal vein is patent. On the left, intrarenal arterial resistive indices range from 0.64 to 0.73. Intrarenal arterial wave forms are normal with brisk upstrokes. The left renal arterial waveform is normal, and velocities wit hin the left renal artery measure up to 46 cm/sec. The left renal vein is patent. The abdominal aorta is patent. Velocities within the abdominal aorta measure up to 50 cm/s. IMPRESSION: 1. The kidneys demonstrate cortical atrophy and are without hydronephrosis. 2. There is no sonographic evidence of renal artery stenosis. 3. Elevated intrarenal resistive indices suggest medical renal disease. ACT 112: Negative or not required by law. Electronically signed by: Devaughn Gaona M.D. 04/22/2020 2:01 PM
[2020-04-22] MEDS: cloNIDine HCL 0.1 MG TAB PO SCH ×2 (16:50→21:00)
[2020-04-23] MEDS: RALOXIFENE HCL 60 MG TAB PO SCH (07:41)
[2020-04-23] MEDS: cloNIDine HCL 0.1 MG TAB PO SCH ×2 (07:41→14:01)
[2020-04-23] MEDS: MAGNESIUM OXIDE 400 MG TAB PO SCH (07:42)
[2020-04-23] MEDS: lisinopriL 40 MG TAB PO SCH (07:42)
[2020-04-23] MEDS ORDERED: LORazepam 0.5 MG TAB PO STA (07:50)
[2020-04-23] MEDS ORDERED: HydrALAZINE HCL 20 MG/ML VIAL IV PRN (07:53)
--- NOTE | 2020-04-23 07:56 | Hospitalist Progress Note ---
Date of Service April 23, 2020 Assessment & Plan (1) Acute hyponatremia: modest improvement overnight, random urine sodium is elevated suggesting lack of sodium conservation, continue fluid restriction stop diuretic (2) HTN (hypertension): Initially blood pressure was improved in the morning however escalated throughout the day consistent with her anxiety. Patient feels she is having an intolerance to carvedilol in her blood pressure has been poorly controlled with heart rates in the 60s. Such we will stop her carvedilol escalate her lisinopril and add clonidine. Patient was seen in consultation by nephrology who added diuretic therapy plus hydralazine. Consideration of adding spironolactone in the future. Agree with completing work-up with 24-hour urine for metanephrines I believe anxiety is a large component of this patient's blood pressure related issues. 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 No bowel wall thickening or obstruction. 2. Normal appendix. 3. Colonic diverticulosis. No evidence for diverticulitis Admission and Anticipated Discharge Date Admission Date: April 21, 2020 Subjective Patient has no further complaints of any of rib pain. She was seen in consultation by nephrology this morning and had her antihypertensive regimen changed. We are in the midst of collecting a 24-hour urine for metanephrines. She offers no other complaints or problems she desperately wishes to go home but is understanding to complete her work-up Review of Systems Review of Systems: Mild to moderate distress and anxiety with minor fatigue no headache, blurry or double vision no speech or swallowing issues no chest pain, pressure or palpitations no shortness of breath, cough or wheezes Abdominal pain is resolved. No nausea or vomiting, no diarrhea or constipation no dysuria, hematuria or frequency no focal joint pain or swelling no back pain, CVA tenderness or radicular pain no bruising, bleeding or rashes no focal signs of weakness or numbness or altered sensation Physical Exam Physical Exam: The patient appeared well nourished and normally developed. Vital signs as documented. Head exam is normocephalic atraumatic no scleral icterus Neck is without JVD, thyromegaly, or carotid bruits. Lungs are clear to auscultation, no focal loss of breath sounds Cardiac exam, Rhythm is regular.. No murmurs, rubs or gallops. Abdominal exam reveals normal bowel sounds, soft Patient has no abdominal bruits, no splenomegaly hepatomegaly Extremities are nonedematous and both pedal pulses are normal. Neurologic exam is alert and oriented, no focal loss of strength or sensation Skin is without bruises or rashes Psychologically is without concerns for anxiety or depression Results & Data Results & Data ([facility]) Vital Signs (Past 12 Hours) Vital Signs Temp Pulse Resp BP BP Pulse Ox 04/23/20 07:48 185/94 H 04/23/20 07:46 97.5 F L 55 L 18 198/100 H 198/94 H 100 04/22/20 23:33 98.2 F 58 L 14 148/80 H 98 04/22/20 20:59 56 L 172/81 H PG Care Time/CCT Total # of Minutes Spent Total Time Spent with Patient: Total time spent is greater than 50% in coordination of care (as documented) at patient's floor/unit and/or counseling patient: Coding Level of Care Code 28148 Subseq Hosp Care Lvl 2 Diagnoses Acute hyponatremia E87.1 HTN (hypertension) I10 Hypertension type: unspecified GERD (gastroesophageal reflux disease) K21.9 History of CVA (cerebrovascular accident) Z86.73 Osteoporosis M81.0 Osteoporosis type: unspecified Presence of current pathological fracture: without current pathological fracture Bilateral sensorineural hearing loss H90.3 Abdominal pain R10.9 (1) Osteoporosis Osteoporosis type: unspecified Presence of current pathological fracture: without current pathological fracture Qualified Code(s): M81.0 - Age-related osteoporosis without current pathological fracture (2) HTN (hypertension) Hypertension type: unspecified Qualified Code(s): I10 - Essential (primary) hypertension
[2020-04-23] MEDS: HEPARIN SOD 5,000 UNIT/0.5 ML VIAL SQ SCH ×2 (08:02→20:32)
[2020-04-23] MEDS ORDERED: ASPIRIN 81 MG ECTAB PO SCH (09:00)
[2020-04-23 09:09] LABS: BUN Creatinine Ratio 16.3 (10-20); Calcium 8.8 mg/dl (8.5-10.1); Creatinine Clr Calc Pharmacy 42.8 ml/min; Est GFR (African American) 74.5; Est GFR (Non-African American) 64.3; Potassium 4.1 mmol/L (3.5-5.1)
--- NOTE | 2020-04-23 10:43 | Nephrology Consultation ---
Date of Consultation April 23, 2020 Assessment & Plan (1) Hypertensive urgency: Jaelyn has hypertensive urgency with history of hypertension for more than 20 years which recently became difficult to control. No history of chronic kidney disease, proteinuria renal artery stenosis. Intolerance, side effect to multiple 1st line antihypertensive medications also contributing to difficult to manage hypertension Currently patient otherwise asymptomatic and denies any chronic NSAIDs use or any chronic debilitating pain. History is not suggestive of possibility for pheochromocytoma or carcinoid syndrome. --start on Hydralazine 50 mg TID, lasix 20 mg/d, continue to avoid thiazide type diuretics --We will check random cortisol, serum aldosterone and renin ratio, 24 hour urine metanephrine collection started yesterday --Discussed in detail about the importance of adhering to low-salt diet and advised patient to continue on restricting salt in diet to less than 2 g per day --Avoid NSAIDs --if blood pressure remained poorly control and workup negative, will consider starting on spironolactone --aim to DC home tomorrow if BP better controlled --discussed in detail with her daughter Kandi over telephone ) Will follow Thank you for allowing me to participate in your patient's care. It was a pleasure to see Jaelyn (2) Acute hyponatremia: History of Present Illness Reason for Consultation: Hypertensive urgency Attending Physician: Aakash Cote MD History of Present Illness Jaelyn Bennett cyst 29-year-old female with past medical history significant for hypertension, history of diverticulitis before admitted to the hospital with hypertensive urgency and hyponatremia. Electronic medical records including labs and imaging are reviewed in detail during patient's visit. Jaelyn has history of hypertension for more than 20 years. She reports blood pressure generally has been well controlled until a year ago when her blood pressure became poorly control. As of recent, she has been on lisinopril 40 mg daily. Medical record shows she has multiple side effects, intolerance to d ifferent antihypertensive medications. Amlodipine caused recurrent abdominal pain. She had history of chronic hyponatremia thought to be related to hydrochlorothiazide and it was the discontinued at some point. She was also on Lasix 10 mg daily at some point which was discontinued before. Recently she was started on carvedilol 3.25 mg twice a day how however, she became bradycardic. Since admission on 04/21/2020, her systolic blood pressure has been around 170s to 180s, diastolic 110s. She was also found to be hyponatremic initially with sodium 128 which rapidly improved to 135, urine osmolality appropriately low around 260s. Prior record showed she had hyponatremia off and on at least since 2017. She was started on clonidine and getting hydralazine p.r.n. during hospital course. She denied taking NSAIDs. She has been having some abdominal pain which currently resolved and denies any other significant pain. Denies any feeling of palpitation, sweating or diaphoresis although she feels anxious when her blood pressure is going up. CT abdomen pelvis with contrast was negative for any intra-abdominal pathology except relatively small right kidney. Renal artery Doppler was negative for hemodynamically significant renal artery stenosis. No adrenal adenoma, has normal kidneys with slightly atrophic right kidney. Pt denies any headache, chest pain. No history of coronary artery disease, diabetes. Nonsmoker, does not drink alcohol. No history of proteinuria or chronic kidney disease, has well preserved GFR. No hypokalemia / hyperkalemia or acid base abnormality. Has F/H of HTN, mom and her daughter has history of hypertension. Denies any chronic debilitating pain. No history of sleep apnea. No change in weight. She does try to follow healthy diet and limit salt in her diet. Jaelyn currently otherwise feels well, she denies any specific symptoms and she is anxious to go home. Allergies Allergy/AdvReac Type Severity Reaction Status Date / Time Sulfa (Sulfonamide Allergy Unknown Unknown Verified 04/21/20 20:41 Antibiotics) reaction amlodipine AdvReac RECURRENT Verified 04/21/20 20:41 LLQ PAIN hydrochlorothiazide AdvReac HYPONATRIMI Verified 04/21/20 20:41 A simvastatin AdvReac Muscle Pain Verified 04/21/20 20:41 Home Medications Home Medications Medication Instructions Recorded Confirmed Type aspirin [Aspirin Low Dose] 81 mg PO Q OTHER DAY #0 05/23/15 04/21/20 History cholecalciferol (vitamin D3) 2,000 unit PO QAM #0 05/23/15 04/21/20 History magnesium 250 mg PO QAM #0 05/23/15 04/21/20 History raloxifene [Evista] 60 mg PO QAM #0 05/23/15 04/21/20 History furosemide 10 mg PO QAM 05/26/19 04/21/20 History lisinopril 20 mg tablet 30 mg PO QAM 10/24/19 04/21/20 History acetaminophen [Tylenol] 325 mg PO QID PRN 04/17/20 04/21/20 History carvedilol 3.125 mg PO BID #60 tab 04/18/20 04/21/20 Rx Patient History Medical History Chest pain Fracture, rib (Acute) History of CVA (cerebrovascular accident) HTN (hypertension) (Chronic) Hyponatremia Scoliosis (Chronic) Surgical History History of back surgery History of cataract extraction History of colonoscopy History of loop electrical excision procedure (LEEP) Status post breast lumpectomy Family History Mother Hearing loss Hypertension Other Family history non-contributory No family history of bleeding disorder Social History Preferred Language: Latvian Communication Ability: Effective Rn Bsn Required: No Beliefs That Will Affect Care: None marital status: Current Living Situation: Alone current occupational status: retired Feels Safe at Home: Yes Smoking Status: Never smoker Hx Alcohol Use: Yes Alcohol type: wine Alcohol Intake Frequency: Weekly Alcohol Intake Frequency Comment: 2 glasses per week Hx Substance Use: No Review of Systems Review of Systems: All systems reviewed & are unremarkable except as noted in HPI & below Physical Exam Constitutional: WD/WN, vitals as above well developed and well nourished; no acute distress Eyes: PERRL, conjunctivae normal, anicteric sclerae ENMT: external ear and nose normal, oropharynx normal Ears: no hearing impairment Neck: trachea midline Respiratory: normal respiratory effort, lungs clear to auscultation no cough Auscultation: no crackles, no rales and no wheezes Cardiovascular: RRR, no murmur, no edema Gastrointestinal (Abdomen): normal bowel sounds, soft, nontender, no hepatosplenomegaly Percussion/Palpation: abdomen nontender, no guarding and abdomen not rigid Musculoskeletal: Extremities: extremities normal to inspection Gait: normal gait Skin: no rashes, warm and dry Neurologic: moves all extremities and awake Psychiatric: A+Ox3, euthymic affect Results & Data Vital Signs (Past 12 Hours) Vital Signs Temp Pulse Resp BP BP Pulse Ox 04/23/20 08:41 158/80 H 04/23/20 07:48 185/94 H 04/23/20 07:46 36.4 C L 55 L 18 198/100 H 198/94 H 100 04/22/20 23:33 36.8 C 58 L 14 148/80 H 98 PG Care Time/CCT Total # of Minutes Spent Total Time Spent with Patient: Total time spent is greater than 50% in coordination of care (as documented) at patient's floor/unit and/or counseling patient: Coding Level of Care Code 12280 Office/OBS Consult Lvl 5 Diagnoses Hypertensive urgency I16.0 Acute hyponatremia E87.1
[2020-04-23] MEDS: FUROSEMIDE 20 MG TAB PO SCH (11:38)
[2020-04-23] MEDS ORDERED: HydrALAZINE TAB 50 MG TAB PO SCH (14:00)
[2020-04-24] MEDS: RALOXIFENE HCL 60 MG TAB PO SCH (08:49)
[2020-04-24] MEDS: lisinopriL 40 MG TAB PO SCH (08:49)
[2020-04-24] MEDS: FUROSEMIDE 20 MG TAB PO SCH (08:49)
[2020-04-24] MEDS: HEPARIN SOD 5,000 UNIT/0.5 ML VIAL SQ SCH (08:50)
[2020-04-24] MEDS: MAGNESIUM OXIDE 400 MG TAB PO SCH (08:50)
--- NOTE | 2020-04-24 11:23 | Nephrology Progress Note ---
Date of Service April 24, 2020 Assessment & Plan (1) Hypertensive urgency: Jaelyn has hypertensive urgency with history of hypertension for more than 20 years which recently became difficult to control. No history of chronic kidney disease, proteinuria renal artery stenosis. Intolerance, side effect to multiple 1st line antihypertensive medications also contributing to difficult to manage hypertension Currently patient otherwise asymptomatic and denies any chronic NSAIDs use or any chronic debilitating pain. History is not suggestive of possibility for pheochromocytoma or carcinoid syndrome. Blood pressure improved overall over last 24 hours after hydralazine added. Pending workup for secondary hypertension. --continue on Hydralazine 25 mg TID, lasix 20 mg/d, and lisinopril 40 milligrams daily on discharge, continue to avoid thiazide type diuretics --Discussed in detail about the importance of adhering to low-salt diet and advised patient to continue on restricting salt in diet to less than 2 g per day --Avoid NSAIDs --if blood pressure remained poorly control and workup negative, suggest starting on spironolactone --okay to be discharged with outpatient follow-up with her PCP (2) Acute hyponatremia: Admission and Anticipated Discharge Date Admission Date: April 21, 2020 Subjective Jaelyn was seen and examined in her room this morning. Overall she has been feeling well, denies any symptoms. Blood pressure has been much better over last 24 hours. Renal function, electrolytes normal. Review of Systems Review of Systems: All systems reviewed & are unremarkable except as noted in HPI & below Physical Exam Constitutional: WD/WN, vitals as above well developed and well nourished; no acute distress Neck: trachea midline Respiratory: normal respiratory effort, lungs clear to auscultation no cough Auscultation: no crackles, no rales and no wheezes Cardiovascular: RRR, no murmur, no edema Skin: no rashes, warm and dry Neurologic: moves all extremities and awake Psychiatric: A+Ox3, euthymic affect Results & Data ([facility]) Vital Signs (Past 12 Hours) Vital Signs Temp Pulse Resp BP Pulse Ox 04/24/20 08:55 36.6 C 66 20 147/87 H 100 04/24/20 07:07 36.6 C 66 20 147/87 H 100 PG Care Time/CCT Total # of Minutes Spent Total Time Spent with Patient: Total time spent is greater than 50% in coordination of care (as documented) at patient's floor/unit and/or counseling patient: Coding Level of Care Code 23829 Subseq Hosp Care Lvl 3 Diagnoses Hypertensive urgency I16.0 Acute hyponatremia E87.1
--- NOTE | 2020-04-24 15:40 | Discharge Summary ---
Date of Service April 24, 2020 Admission HPI Per Admitting Provider Jaelyn is a 79-year-old female with a past medical history of CVA, GERD, hypertension, and hyponatremia who presents with several days of increased fatigue and abdominal pain similar to her past episodes of diverticulitis and with elevated blood pressure to 200/100 at home. Answer reports her abdominal pain started 2 to 3 days ago and feels like a strong ache in her left lower quadrant. She reports it came on suddenly and felt like a 10/10 ache with no noted remitting or exacerbating factors. Her pain did not radiate. She has not had any fevers, chills, night sweats. She checked her blood pressure and noted that it was 200/103 which is very high for her, her normal is systolic 140s to 150s. She did not attempt any treatment. Symptoms occurred prior to dinner and lasted through dinner, she is not sure if there is an association with her meal. She was recently seen at [facility] for hypertension and started on carvedilol 3.125 mg twice daily. She reports she has been taking this and has not missed any doses. She also takes lisinopril and Lasix daily. She denies chest pain, chest pressure, shortness of breath, cough, diarrhea, constipation, melena, bright red blood per rectum, headache, vision change, acute hearing change. She endorses intermittent vertigo at baseline which has not been bothersome to her recently. She endorses a feeling of palpitations during her episode of abdominal pain. She denies other symptoms. Medical history: Reviewed Surgical history: Reviewed Medications: Reviewed Allergies: Reviewed. Of note severe rash to sulfa. Social: Denies current or former tobacco use. Rare alcohol use. Denies recreational drug use. She lives by herself in a fdc facility, no problems ambulating around her home. CODE STATUS: Full code. She reports her decision maker would be her daughter Kandi reachable at [phone] in the event of an emergency. Principal Diagnosis hypertensive urgercy hyponatremia, resolved Discharge Exam The patient appeared well Vital signs as documented. Lungs are clear to auscultation and appear unlabored Cardiac exam, Rhythm is regular.. No murmurs, rubs or gallops. Abdominal exam reveals normal bowel sounds, soft non tender, no masses Extremities are nonedematous and both pedal pulses are normal. Neurologic exam is alert and oriented, no focal loss of strength or sensation Skin is without bruises or rashes Psychologically is without concerns for anxiety or depression Discharge Data Allergies Allergy/AdvReac Type Severity Reaction Status Date / Time Sulfa (Sulfonamide Allergy Unknown Unknown Verified 04/21/20 20:41 Antibiotics) reaction amlodipine AdvReac RECURRENT Verified 04/21/20 20:41 LLQ PAIN hydrochlorothiazide AdvReac HYPONATRIMI Verified 04/21/20 20:41 A simvastatin AdvReac Muscle Pain Verified 04/21/20 20:41 Consultations 04/21/20 19:15 ED Decision to Admit Stat 04/23/20 07:53 Consult Nephrology Routine Ordered Studies 04/21/20 16:24 CT abd pelvis IV con only Stat 04/22/20 13:30 US duplex renal artery Routine Hospital Course (1) HTN (hypertension): Initially blood pressure was improved however escalated throughout her stay. Patient feels she is having an intolerance to carvedilol in her blood pressure has been poorly controlled with heart rates in the 60s. Such we will stop her carvedilol escalate her lisinopril. Patient was seen in consultation by nephrology who added diuretic therapy plus hydralazine. Consideration of adding spironolactone in the future. 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 No bowel wall thickening or obstruction. 2. Normal appendix. 3. Colonic diverticulosis. No evidence for diverticulitis Total Time Total Time Spent Total Time Spent (In Minutes): It required greater than 30 minutes to prepare this patient for discharge Discharge Plan Discharge Items Patient Disposition: Home - Self-Care Reason For Visit: HYPONATREMIA,HYPERTENSION,WEAKNESS Discharge Diagnosis: hypertensive urgency low blood sodium Condition on Discharge: Good Activity: Resume your previous activity Non-emergency contact: Primary Care Provider and Marking Stitcher Call non-emergency contact if: you have any medication questions and your symptoms worsen Follow-up/Referrals: Cristina Orr MD [Physician] - 06/01/20 12:45 pm (Please, follow up at the [facility] Nephrology Office with Dr Orr on MondayJune 01 at 1:00 pm (arrival at 12:45 pm). *The office is loctated in [address] [facility], next to this hospital. If you need too change this appointment, call the office at [phone].) Claire Mazariegos DO [Primary Care Provider] - 04/28/20 3:10 pm (Please, follow up at Dr. Mazariegos's office on MondayApril 28 at 3:10 pm. *If you need to change this appointment, call the office at [phone].) Diet: Regular Addtl Attending Provider Instructions: please limit excessively salty food, and caffeine please follow up with your primary care provider and also Dr Orr Pending Studies at Discharge: Yes (your 24 hour urine collection will need to be analyzed ) Stand-Alone Forms: My [facility], Smoking Cessation Medications and DC Order Prescriptions: New hydralazine 25 mg Tablet 25 mg PO TID Qty: 90 RF: 4 lisinopril [Zestril] 40 mg Tablet 40 mg PO QAM Qty: 30 RF: 4 Continued aspirin [Aspirin Low Dose] 81 mg Tablet,Delayed Release (Dr/Ec) 81 mg PO Q OTHER DAY Qty: 0 RF: 0 raloxifene [Evista] 60 mg Tablet 60 mg PO QAM Qty: 0 RF: 0 magnesium 250 mg Tablet 250 mg PO QAM Qty: 0 RF: 0 cholecalciferol (vitamin D3) 2,000 unit Tablet 2,000 unit PO QAM Qty: 0 RF: 0 acetaminophen [Tylenol] 325 mg Tablet 325 mg PO QID PRN (Reason: Pain) RF: 0 Changed furosemide 20 mg tablet 20 mg PO QAM Qty: 30 RF: 4 Discontinued lisinopril 20 mg tablet 30 mg PO QAM RF: 0 carvedilol 3.125 mg Tablet 3.125 mg PO BID Qty: 60 RF: 0 Discharge Orders: Discharge Order (Routine); Ordered 04/24/20 Ordered By: Aakash Beard/Other Patient Handouts: Hypertension Control, Lisinopril tablets, Hydralazine tablets Admission Data Admit Date/Time: 04/21/20 20:18 Attending Provider: Aakash Cote Admit Provider: Marvin Inman Primary Care Provider: Claire Mazariegos Other Providers: Jenna Fairchild ; Cristina Orr Other Interventions: Discharge Summary Assessment (RN) Last Done: 04/24/20 08:55 DC Date/Time DO NOT enter until pt leaves facility: 04/24/20 11:07 Coding Level of Care Code D/C Day Management >30 mins Diagnoses HTN (hypertension) I10 Hypertension type: unspecified GERD (gastroesophageal reflux disease) K21.9 Acute hyponatremia E87.1 History of CVA (cerebrovascular accident) Z86.73 Osteoporosis M81.0 Osteoporosis type: unspecified Presence of current pathological fracture: without current pathological fracture Bilateral sensorineural hearing loss H90.3 Abdominal pain R10.9
[2020-04-28 14:30] LABS: Normetanephrine, Ur 148 mcg/24 h (122-676); Total Metanephrine 282 mcg/24 h (224-832)
[2020-04-28 16:44] LABS: Renin Activity 0.16 ng/mL/h (0.25-5.82)
[2020-04-28 23:49] LABS: Creatinine, Random Urine 71 mg/dL (20-275); Total Metanephrine 281 mcg/g cr (149-603)
[2020-04-29 13:04] LABS: Metanephrine, Plasma 32 pg/mL (<=57); Normetanephrine Plasma 50 pg/mL (<=148); Total Metanephrine Plasma 82 pg/mL (<=205)
== END 2020-04-24 11:07 | disposition home or self-care (01) | DRG 641 ==
LOC: ED 14:38 → 3N 20:18 → SUATTDRO 20:18 → 3N 21:08

== ENCOUNTER 2023-01-14 21:13 | Observation (INO) ==
[2023-01-14] MEDS ORDERED: NITROGLYCERIN 2% OINTMENT 30GM TUBE EXT STA (21:25)
[2023-01-14 21:55] LABS: Basophils # (auto) 0.05 K/uL (0-0.2); Basophils % (auto) 0.7 %; Eosinophils # (auto) 0.04 K/uL (0-0.50); Eosinophils % (auto) 0.5 %; Hemoglobin 13.2 g/dl (12.0-16.0); Immature Granulocytes # (auto) 0.02 K/uL (0.01-0.20); Immature Granulocytes % (auto) 0.3 %; Lymphocytes # (auto) 1.76 K/uL (1.2-3.4); Lymphocytes % (auto) 23.7 %; Mean Corpuscular Hemoglobin 31.8 pg (25.0-34.0); Mean Corpuscular Hgb Conc 33.8 g/dL (32.0-36.0); Mean Platelet Volume 10.1 fL (9.4-12.4); Monocytes # (auto) 0.74 K/uL (0.11-0.59); Neutrophils # (auto) 4.82 K/uL (1.40-6.50); Neutrophils % (auto) 64.8 %; Platelet Count 260 K/uL (130-400); RDW Coefficient of Variation 12.6 % (11.5-14.5); RDW Standard Deviation 43.8 fL (36.4-46.3); Red Blood Count 4.15 M/uL (4.20-5.40); White Blood Count 7.43 K/ul (4.8-10.8)
[2023-01-14] MEDS ORDERED: lisinopril 20 MG TAB PO STA ×2 (21:55→21:58)
[2023-01-14] MEDS ORDERED: ASPIRIN CHEW 324 MG PO STA (21:55)
[2023-01-14 22:10] LABS: INR 1.1 (0.9-1.1); Partial Thromboplastin Ratio 0.9; Partial Thromboplastin Time 25.7 Seconds (21.0-31.0); Prothrombin Time 11.2 Seconds (9.0-12.0)
--- NOTE | 2023-01-14 22:16 | Emergency Department Note ---
Impression & Plan Left-sided chest pain ED Provider Note INFORMANT: Patient and daughter ED PROVIDER(S): George Murguia MD CHIEF COMPLAINT: Left-sided chest pain PLAN: Disposition: Admitted Condition: Good Outpatient prescription management: none Referral: None MEDICAL DECISION MAKING: Patient presented to emergency room because of chest pain. She had work-up obtained. Patient had significant hypertension. She had Nitropaste applied and was given aspirin. The patient did feel better with that. Patient was given her evening lisinopril as she was due. Patient's blood pressure did improve. Patient's CBC and chemistry panel were unremarkable. Cardiac troponin was negative. ECG did not reveal any acute ischemia. Given the patient's marked elevation of blood pressure and improvement of symptoms as blood pressure was controlled further management in the hospital was felt to be appropriate. [facility] Patient was evaluated in the ER admitted for further management. Case discussed with the manager of maintenance After review of the information above and other included data, I feel the patient requires admission. Triage Nursing notes reviewed and agree them. Vital Signs: reviewed and remarkable for severe hypertension Prior /Outside records reviewed: none Differential diagnosis: Cardiac ischemia, aortic dissection, pulmonary embolism, pneumothorax, pneumonia, pericarditis, myocarditis, esophageal rupture, GERD, cholecystitis, pancreatitis, musculoskeletal, as well as other pathologies. Diagnostics, as interpreted by me: ECG: Twelve-lead ECG reveals a sinus rhythm with PACs at [address] elevation or depression. Left axis deviation. Cardiac Monitoring: Cardiac monitoring ordered by me: The patient was placed on continuous cardiac monitoring and observed. It revealed a normal sinus rhythm at 77 beats per minute without ectopy or evidence of dysrhythmia. Medical decision rules: Patient moderate risk by heart score. Imaging studies: Chest x-ray. Findings: A chest x-ray was performed and revealed no pneumothorax, effusion, infiltrate, pulmonary edema, free air under the diaphragm, or wide mediastinum. Spinal fusion rods present. Impression: No acute disease. HPI: The patient is a 82year old female who presents to the Emergency Room with complaints of left-sided chest pain. This started few days ago and is has been intermittent. The patient also notes the following associated symptoms, mild shortness of breath, feeling generally weak and shaky. The patient has taken no medication for relieving factors. Current pain is rated as 6/10. Pt denies LOC, headache, fevers, chills, diaphoresis, visual changes, neck pain, nausea, vomiting, abdominal pain, back pain, melena, hematochezia, urinary symptoms, numbness, lymphadenopathy, rash, or other complaints. PAST MEDICAL HISTORY: See Below, GERD, hypertension PAST SURGICAL HISTORY: See Below, spinal fusion SOCIAL HISTORY: See Below, retired HOME MEDICATIONS: See Below ALLERGIES: See Below VITALS: See Below PHYSICAL EXAMINATION: GENERAL: Awake, alert, well-appearing, in no distress HENT: Normocephalic, atraumatic. Oropharynx unremarkable. EYES: Normal conjunctiva. Sclera non-icteric. NECK: Inspection normal. Non-tender. Supple. No nuchal rigidity. FROM. No masses. RESPIRATORY: Clear to auscultation. No wheezes. No rales. Normal respiratory effort. CARDIAC: Normal rate. Normal rhythm. No murmurs. No rubs. Extremities warm and well perfused. Pulses equal. No JVD. GI: Soft, non-distended. No tenderness to palpation. No rebound or guarding. No masses. RECTAL: Deferred. MUSCULOSKELETAL: Atraumatic. Chest examination reveals no tenderness. The back is symmetrical on inspection without obvious abnormality. There is no CVA tenderness to palpation. No joint edema. LOWER EXTREMITIES: Calves are equal size bilaterally and non-tender. No edema. No discoloration. NEURO: Normal sensorium. No sensory or motor deficits noted. SKIN: No rash or jaundice noted. Past Med/Surg History Medical History Chest pain Family history of ductal carcinoma in situ (DCIS) of breast Daughter Fracture, rib History of CVA (cerebrovascular accident) HTN (hypertension) Hyponatremia Scoliosis Tinnitus of left ear Surgical History History of back surgery History of cataract extraction History of colonoscopy History of loop electrical excision procedure (LEEP) Status post breast lumpectomy Family History Mother Hearing loss Hypertension Other Family history non-contributory No family history of bleeding disorder Social History Smoking Status: Never smoker Second Hand Exposure: No; Do You Dip or Chew Tobacco: No; Tobacco Cessation Education Requested by Patient: No Hx Alcohol Use: Yes Alcohol type: wine Alcohol Intake Frequency Comment: 2 glasses per week Hx Substance Use: No Preferred Language: Cymro Communication Ability: Effective Residential Real Estate Appraiser Required: No Beliefs That Will Affect Care: None marital status: Current Living Situation: Alone Current Living Situation Comment: Lives alone in Apartment Complex current occupational status: retired Other Information That Helps Us Care for You: No Feels Safe at Home: Yes Safety Concerns: Feels Safe At This Time Assistive Devices: Denture - Upper and Glasses Allergies Allergies Allergy/AdvReac Type Severity Reaction Status Date / Time Sulfa (Sulfonamide Allergy Unknown Unknown Verified 01/14/23 22:28 Antibiotics) reaction amlodipine AdvReac RECURRENT Verified 01/14/23 22:28 LLQ PAIN dicyclomine AdvReac GI Verified 01/14/23 22:28 hydrochlorothiazide AdvReac HYPONATRIMI Verified 01/14/23 22:28 A irbesartan AdvReac GI Verified 01/14/23 22:28 NSAIDS (Non-Steroidal AdvReac GI Verified 01/14/23 22:28 Anti-Inflamma simvastatin AdvReac Muscle Pain Verified 01/14/23 22:28 Home Meds Home Medications Medication Instructions Recorded Confirmed aspirin 81 mg tablet,delayed 81 mg PO Q OTHER DAY ##0 05/23/15 01/14/23 release (Renato Low Dose Aspirin) cholecalciferol (vitamin D3) 50 2,000 unit PO QAM ##0 05/23/15 01/14/23 mcg (2,000 unit) tablet magnesium 250 mg tablet 250 mg PO QAM ##0 05/23/15 01/14/23 acetaminophen 325 mg tablet 325 mg PO QID PRN Pain 04/17/20 01/14/23 (Tylenol) furosemide 20 mg tablet 10 mg PO BID 06/01/22 01/14/23 Previous Rx's Medication Instructions Recorded lisinopril 40 mg tablet (Zestril) 40 mg PO QAM #30 tabs 04/24/20 Results & Data (ED) Vital Signs Vital Signs - 24 hr 01/14/23 21:14 01/14/23 21:39 01/14/23 21:56 Temperature 36.3 C L Temperature Source Temporal Artery Scan Pulse Rate 85 Pulse Rate [Left Finger] 77 Pulse Rate from SpO2 Sensor Pulse Rhythm Regular Pulse Strength Normal Respiratory Rate 20 16 Respiratory Effort / Characteristics Non-Labored Spontaneous Non-Labored Spontaneous Respiratory Depth Normal Normal Respiratory Pattern Regular Regular Blood Pressure 203/131 H 199/109 H Blood Pressure [Right Arm] 195/114 H Blood Pressure Mean 155 139 Blood Pressure Mean [Right Arm] 141 Blood Pressure Position Sitting Blood Pressure Position [Right Arm] Sitting Pulse Oximetry 97 100 Oxygen Delivery Method Room Air Room Air Sepsis Recent Fever Within 48 Hours No Sepsis New/Unexplained Change in Mental Status N/A Sepsis Action Taken by Nursing No Action Required 01/14/23 22:00 01/14/23 22:00 01/14/23 22:15 Temperature Temperature Source Pulse Rate 77 70 Pulse Rate [Left Finger] Pulse Rate from SpO2 Sensor 77 Pulse Rhythm Pulse Strength Respiratory Rate 14 18 Respiratory Effort / Characteristics Respiratory Depth Respiratory Pattern Blood Pressure 197/111 H Blood Pressure [Right Arm] Blood Pressure Mean 139 Blood Pressure Mean [Right Arm] Blood Pressure Position Blood Pressure Position [Right Arm] Pulse Oximetry 99 Oxygen Delivery Method Sepsis Recent Fever Within 48 Hours Sepsis New/Unexplained Change in Mental Status Sepsis Action Taken by Nursing 01/14/23 22:15 01/14/23 22:30 01/14/23 21:40 Temperature Temperature Source Pulse Rate 71 82 Pulse Rate [Left Finger] Pulse Rate from SpO2 Sensor Pulse Rhythm Pulse Strength Respiratory Rate 21 Respiratory Effort / Characteristics Respiratory Depth Respiratory Pattern Blood Pressure 197/100 H 183/102 H Blood Pressure [Right Arm] Blood Pressure Mean 132 129 Blood Pressure Mean [Right Arm] Blood Pressure Position Blood Pressure Position [Right Arm] Pulse Oximetry Oxygen Delivery Method Sepsis Recent Fever Within 48 Hours Sepsis New/Unexplained Change in Mental Status Sepsis Action Taken by Nursing 01/14/23 23:30 01/14/23 23:30 Temperature Temperature Source Pulse Rate 78 Pulse Rate [Left Finger] Pulse Rate from SpO2 Sensor Pulse Rhythm Pulse Strength Respiratory Rate 17 Respiratory Effort / Characteristics Respiratory Depth Respiratory Pattern Blood Pressure 182/123 H Blood Pressure [Right Arm] Blood Pressure Mean 142 Blood Pressure Mean [Right Arm] Blood Pressure Position Blood Pressure Position [Right Arm] Pulse Oximetry Oxygen Delivery Method Sepsis Recent Fever Within 48 Hours Sepsis New/Unexplained Change in Mental Status Sepsis Action Taken by Nursing Laboratory Data 01/14/23 21:27 01/14/23 21:27 Lab Results 01/14/23 01/14/23 01/14/23 Range/Units 21:27 21:27 21:27 WBC 7.43 (4.8-10.8) K/ul RBC 4.15 L (4.20-5.40) M/uL Hgb 13.2 (12.0-16.0) g/dl Hct 39.0 (37.0-47.0) % MCV 94.0 (80.0-100.0) fL MCH 31.8 (25.0-34.0) pg MCHC 33.8 (32.0-36.0) g/dL RDW Std Deviation 43.8 (36.4-46.3) fL RDW Coeff of Denys 12.6 (11.5-14.5) % Plt Count 260 (130-400) K/uL MPV 10.1 (9.4-12.4) fL Immature Gran % (Auto) 0.3 % Neut % (Auto) 64.8 % Lymph % (Auto) 23.7 % Morrill % (Auto) 10.0 % Eos % (Auto) 0.5 % Baso % (Auto) 0.7 % Neut # (Auto) 4.82 (1.40-6.50) K/uL Lymph # (Auto) 1.76 (1.2-3.4) K/uL Morrill # (Auto) 0.74 H (0.11-0.59) K/uL Eos # (Auto) 0.04 (0-0.50) K/uL Baso # (Auto) 0.05 (0-0.2) K/uL Immature Gran # (Auto) 0.02 (0.01-0.20) K/uL PT 11.2 (9.0-12.0) Seconds INR 1.1 (0.9-1.1) APTT 25.7 (21.0-31.0) Seconds PTT Ratio 0.9 Sodium 135 L (136-145) mmol/L Potassium 3.9 (3.5-5.1) mmol/L Chloride 99 (98-107) mmol/L Carbon Dioxide 29 (21-32) mmol/L Anion Gap 7 (3-11) BUN 17 (6-23) mg/dl Creatinine 0.84 (0.6-1.2) mg/dl Est Cr Clr Drug Dosing 42.2 ml/min Est GFR ( Amer) 76.1 ml/min Est GFR (Non-Af Amer) 65.6 ml/min BUN/Creatinine Ratio 20.2 H (10-20) Glucose 113 H (70-99(Fasting)) mg/dl Calcium 10.2 H (8.5-10.1) mg/dl Phosphorus 3.1 (2.5-4.9) mg/dl Magnesium 1.7 (1.7-2.4) mg/dl Total Bilirubin 0.6 (0.2-1.0) mg/dl AST 22 (13-39) U/L ALT 13 (7-52) U/L Alkaline Phosphatase 57 (34-104) U/L Troponin I High Sens 7.8 (0-14) pg/ml Total Protein 8.1 (6.0-8.3) gm/dl Albumin 4.5 (3.4-5.0) gm/dl Globulin 3.6 (2.5-4.0) gm/dl Albumin/Globulin Ratio 1.3 (0.9-2) SARS-CoV-2, RNA, NAAT (NEGATIVE) 01/14/23 Range/Units 21:27 WBC (4.8-10.8) K/ul RBC (4.20-5.40) M/uL Hgb (12.0-16.0) g/dl Hct (37.0-47.0) % MCV (80.0-100.0) fL MCH (25.0-34.0) pg MCHC (32.0-36.0) g/dL RDW Std Deviation (36.4-46.3) fL RDW Coeff of Denys (11.5-14.5) % Plt Count (130-400) K/uL MPV (9.4-12.4) fL Immature Gran % (Auto) % Neut % (Auto) % Lymph % (Auto) % Morrill % (Auto) % Eos % (Auto) % Baso % (Auto) % Neut # (Auto) (1.40-6.50) K/uL Lymph # (Auto) (1.2-3.4) K/uL Morrill # (Auto) (0.11-0.59) K/uL Eos # (Auto) (0-0.50) K/uL Baso # (Auto) (0-0.2) K/uL Immature Gran # (Auto) (0.01-0.20) K/uL PT (9.0-12.0) Seconds INR (0.9-1.1) APTT (21.0-31.0) Seconds PTT Ratio Sodium (136-145) mmol/L Potassium (3.5-5.1) mmol/L Chloride (98-107) mmol/L Carbon Dioxide (21-32) mmol/L Anion Gap (3-11) BUN (6-23) mg/dl Creatinine (0.6-1.2) mg/dl Est Cr Clr Drug Dosing ml/min Est GFR ( Amer) ml/min Est GFR (Non-Af Amer) ml/min BUN/Creatinine Ratio (10-20) Glucose (70-99(Fasting)) mg/dl Calcium (8.5-10.1) mg/dl Phosphorus (2.5-4.9) mg/dl Magnesium (1.7-2.4) mg/dl Total Bilirubin (0.2-1.0) mg/dl AST (13-39) U/L ALT (7-52) U/L Alkaline Phosphatase (34-104) U/L Troponin I High Sens (0-14) pg/ml Total Protein (6.0-8.3) gm/dl Albumin (3.4-5.0) gm/dl Globulin (2.5-4.0) gm/dl Albumin/Globulin Ratio (0.9-2) SARS-CoV-2, RNA, NAAT NEGATIVE (NEGATIVE) Administered Medications Al Hydrox/Mg Hydrox/Simethicone (Aluminum/Magnesium Susp 30 Ml Udc) 15 ml PO Q6H PRN PRN Reason: heart burn Stop: 02/14/23 01:03 Last Admin: 01/15/23 01:08 Dose: 15 ml Documented By: DM Discontinued Medications Aspirin (Aspirin Chew 324 Mg) 324 mg PO NOW STA Stop: 01/14/23 21:56 Last Admin: 01/14/23 22:01 Dose: 324 mg Documented By: Lisinopril (Lisinopril 20 Mg Tab) 20 mg PO NOW STA Stop: 01/14/23 21:56 Last Admin: 01/14/23 22:01 Dose: Not Given Documented By: Lisinopril (Lisinopril 20 Mg Tab) 40 mg PO NOW STA Stop: 01/14/23 21:59 Last Admin: 01/14/23 22:19 Dose: 40 mg Documented By: Nitroglycerin (Nitroglycerin 2% Ointment 30gm Tube) 0.5 inch EXT NOW STA Stop: 01/14/23 21:26 Last Admin: 01/14/23 21:34 Dose: 0.5 inch Documented By: Discharge Plan Visit Data Chief Complaint: Chest Pain Stated Complaint: BURNING IN CHEST, SHAKING, CHILLS ED Provider: George Murguia Discharge Problem: Left-sided chest pain Patient Disposition: Admitted As Inpatient Discharge Instructions Interventions: ED Discharge Assessment Last Done: 01/15/23 00:35
[2023-01-14 22:18] LABS: Troponin I High Sensitivity 7.8 pg/ml (0-14)
[2023-01-14 22:21] LABS: Albumin Level 4.5 gm/dl (3.4-5.0); Bilirubin,Total 0.6 mg/dl (0.2-1.0); Calcium 10.2 mg/dl (8.5-10.1); Potassium 3.9 mmol/L (3.5-5.1)
[2023-01-14 22:27] LABS: Albumin Globulin Ratio 1.3 (0.9-2); BUN Creatinine Ratio 20.2 (10-20); Creatinine Clr Calc Pharmacy 42.2 ml/min; Est GFR (African American) 76.1 ml/min; Est GFR (Non-African American) 65.6 ml/min; Globulin 3.6 gm/dl (2.5-4.0); Total Protein 8.1 gm/dl (6.0-8.3)
--- NOTE | 2023-01-14 23:39 | History & Physical Report ---
Date of Service January 14, 2023 Assessment & Plan (1) Left-sided chest pain: Plan: 82-year-old female with history of hypertension and GERD presenting with several weeks, possibly months of intermittent left-sided chest burning. Patient with hypertension otherwise no known risk factors for CAD. Troponin x1 = 7.8. EKG with no acute ischemic changes. Suspect that left-sided chest discomfort is mostly secondary to patient's GERD as well as anxiety. Low suspicion for ACS given patient's longstanding duration of symptoms with normal EKG and troponin. Admit to medical with telemetry Repeat troponin a.m. labs Continue patient's aspirin 81 mg p.o. every 48 hours (2) Hypertensive urgency: Plan: Patient with markedly elevated blood pressure on arrival to 203/131. She was given her evening lisinopril. Blood pressure now 152/81 Continue lisinopril 40 mg p.o. daily Continue Lasix 10 mg p.o. twice daily Continue to monitor blood pressure (3) GERD (gastroesophageal reflux disease): Plan: Suspect the patient's left-sided chest burning is at least in part secondary to her underlying GERD. She has had a difficult time finding medications that work for this without adverse side effects. We will try Maalox as needed F/E/NHep-Lock, electrolytes within normal limits, low-sodium diet as tolerated Prophylaxislow risk for VTE [place] per discussion with patient Dispositionadmit to medical with telemetry History of Present Illness Chief Complaint: Chest pain, hypertension Primary Care Provider: Mariza Alcantar DO Jaelyn Xie is a pleasant 82-year-old female with history of hypertension, GERD, prior CVA presenting with left-sided chest pain and hypertensive urgency. Patient reports intermittent left-sided chest burning ongoing for the last several weeks. Sensation is nonexertional, nonpleuritic, non-positional. Daughter is at bedside and assists with details of history. Patient experienced the left-sided chest burning intermittently throughout the day today. The sensation lasts several minutes then resolves on its own. Patient feels that it is brought on by stressful situations and anxiety and is often relieved by speaking with her daughter and trying to calm herself. She has tried baking soda as well as apple cider vinegar and honey to help with her heartburn. She does experience some relief with these remedies. Daughter states that patient has longstanding history of this left chest burning. Oftentimes brought on by food, specifically onions. She feels that it is worsened by anxiety. Richie's episode was possibly more severe than prior episodes of chest burning and anxiety. Patient denies fever, chills, headache, visual changes. She has slight shortness of breath. Denies palpitations, abdominal pain, nausea, vomiting, diarrhea, constipation. Patient is exquisitely sensitive to medications. She has multiple allergies listed. She has tried to take several agents at home for her heartburn/chest burning including Tums and Pepcid. She often develops dizziness or other side effects when she takes new medications. In regards to patient's blood pressurehas been difficult to control due to to multiple medication side effects. She is presently on lisinopril 40 mg p.o. daily which she tolerates well. Her medication was recently changed from a.m. to p.m. to help with any side effects that may occur. Patient reports compliance with her medications. She did not miss any doses. Denies stimulant use, excess caffeine, cold medicine. Upon arrival to the ER patient markedly hypertensive with blood pressure of 203/131. She was administered her evening dose of lisinopril 40 mg at 22: 19. She is still experiencing the chest burning at this time. She reports that it was worsened when she was told by the ER attending that she needed to stay overnight in the hospital. Patient is very active and independent. She exercises frequently and walks every day. She never experiences exertional chest pain or dyspnea. She has no known history of coronary artery disease. No prior catheterizations. She had a stress test many years ago which was reportedly unremarkable.. ER course: Half an inch of Nitropaste Aspirin 324 mg Lisinopril 40 mg Allergies Allergy/AdvReac Type Severity Reaction Status Date / Time Sulfa (Sulfonamide Allergy Unknown Unknown Verified 01/14/23 22:28 Antibiotics) reaction amlodipine AdvReac RECURRENT Verified 01/14/23 22:28 LLQ PAIN dicyclomine AdvReac GI Verified 01/14/23 22:28 hydrochlorothiazide AdvReac HYPONATRIMI Verified 01/14/23 22:28 A irbesartan AdvReac GI Verified 01/14/23 22:28 NSAIDS (Non-Steroidal AdvReac GI Verified 01/14/23 22:28 Anti-Inflamma simvastatin AdvReac Muscle Pain Verified 01/14/23 22:28 Home Medications Medication Instructions Recorded Confirmed Type aspirin 81 mg tablet,delayed 81 mg PO Q OTHER DAY ##0 05/23/15 01/14/23 History release (Renato Low Dose Aspirin) cholecalciferol (vitamin D3) 50 2,000 unit PO QAM ##0 05/23/15 01/14/23 History mcg (2,000 unit) tablet magnesium 250 mg tablet 250 mg PO QAM ##0 05/23/15 01/14/23 History acetaminophen 325 mg tablet 325 mg PO QID PRN Pain 04/17/20 01/14/23 History (Tylenol) lisinopril 40 mg tablet (Zestril) 40 mg PO QAM #30 tabs 04/24/20 01/14/23 Rx furosemide 20 mg tablet 10 mg PO BID 06/01/22 01/14/23 History Past Med/Surg History Medical History Chest pain Family history of ductal carcinoma in situ (DCIS) of breast Daughter Fracture, rib History of CVA (cerebrovascular accident) HTN (hypertension) Hyponatremia Scoliosis Tinnitus of left ear Surgical History History of back surgery History of cataract extraction History of colonoscopy History of loop electrical excision procedure (LEEP) Status post breast lumpectomy Family History Mother Hearing loss Hypertension Other Family history non-contributory No family history of bleeding disorder Social History Smoking Status: Never smoker Second Hand Exposure: No; Do You Dip or Chew Tobacco: No; Tobacco Cessation Education Requested by Patient: No Hx Alcohol Use: Yes Alcohol type: wine Alcohol Intake Frequency Comment: 2 glasses per week Hx Substance Use: No Preferred Language: Icelandic Communication Ability: Effective Batch Blender Required: No Beliefs That Will Affect Care: None marital status: Current Living Situation: Alone Current Living Situation Comment: Lives alone in Apartment Complex current occupational status: retired Other Information That Helps Us Care for You: No Feels Safe at Home: Yes Safety Concerns: Feels Safe At This Time Assistive Devices: Denture - Upper and Glasses Review of Systems Review of Systems: All systems reviewed & are unremarkable except as noted in HPI & below Physical Exam Physical Exam: General: patient resting comfortably, NAD, non-toxic in appearance, AA&O x 4, anxious in appearance Skin: warm, dry, intact, no rashes or lesions HEENT: NC/AT, PERRL, EOMI, anicteric sclera, conjunctiva without injection, external ear normal to inspection and nontender, nares patent, moist mucus membranes, dentition intact, no oropharyngeal lesions, neck supple, trachea midline, no LAD, no thyromegaly, no JVD Heart: +S1/S2, regular, no m/r/g, no chest wall tenderness Lungs: equal air entry bilaterally, no rales/rhonchi/wheezes Abd: +BS, soft, NT/ND, no masses/organomegaly/ascites Ext: warm, 2+ pulses in UE/LE bilaterally, no clubbing/cyanosis or edema Neuro: nonfocal, patient AA&O x 4, speech intact, no facial droop, moving all extremities on command with equal strength 5/5 Results & Data Results & Data ([facility]) Vital Signs (Past 12 Hours) Vital Signs Temp Pulse Pulse Resp BP BP Pulse Ox 01/14/23 23:30 78 17 01/14/23 23:30 182/123 H 01/14/23 21:40 82 01/14/23 22:30 71 21 183/102 H 01/14/23 22:15 197/100 H 01/14/23 22:15 70 18 01/14/23 22:00 77 14 99 01/14/23 22:00 197/111 H 01/14/23 21:56 199/109 H 01/14/23 21:39 77 16 195/114 H 100 01/14/23 21:14 36.3 C L 85 20 203/131 H 97 O2 Del Method 01/14/23 23:30 01/14/23 23:30 01/14/23 21:40 01/14/23 22:30 01/14/23 22:15 01/14/23 22:15 01/14/23 22:00 01/14/23 22:00 01/14/23 21:56 01/14/23 21:39 Room Air 01/14/23 21:14 Room Air Laboratory Results Laboratory Results WBC 7.43 K/ul (4.8-10.8) 01/14/23: RBC 4.15 M/uL (4.20-5.40) L 01/14/23: Hgb 13.2 g/dl (12.0-16.0) 01/14/23: Hct 39.0 % (37.0-47.0) 01/14/23: MCV 94.0 fL (80.0-100.0) 01/14/23 MCH 31.8 pg (25.0-34.0) 01/14/23 MCHC 33.8 g/dL (32.0-36.0) 01/14/23 RDW Std Deviation 43.8 fL (36.4-46.3) 01/14/23 RDW Coeff of Denys 12.6 % (11.5-14.5) 01/14/23 Plt Count 260 K/uL (130-400) 01/14/23 MPV 10.1 fL (9.4-12.4) 01/14/23 Immature Gran % (Auto) 0.3 % 01/14/23 Neut % (Auto) 64.8 % 01/14/23: Lymph % (Auto) 23.7 % 01/14/23: [place] % (Auto) 10.0 % 01/14/23: Eos % (Auto) 0.5 % 01/14/23 Baso % (Auto) 0.7 % 01/14/23 Neut # (Auto) 4.82 K/uL (1.40-6.50) 01/14/23: Lymph # (Auto) 1.76 K/uL (1.2-3.4) 01/14/23 [place] # (Auto) 0.74 K/uL (0.11-0.59) H 01/14/23 Eos # (Auto) 0.04 K/uL (0-0.50) 01/14/23 Baso # (Auto) 0.05 K/uL (0-0.2) 01/14/23 21: Immature Gran # (Auto) 0.02 K/uL (0.01-0.20) 01/14/23: PT 11.2 Seconds (9.0-12.0) 01/14/23: INR 1.1 (0.9-1.1) 01/14/23: APTT 25.7 Seconds (21.0-31.0) 01/14/23: PTT Ratio 0.9 01/14/23: Sodium 135 mmol/L (136-145) L 01/14/23: Potassium 3.9 mmol/L (3.5-5.1) 01/14/23: Chloride 99 mmol/L (98-107) 01/14/23: Carbon Dioxide 29 mmol/L (21-32) 01/14/23: Anion Gap 7 (3-11) 01/14/23: BUN 17 mg/dl (6-23) 01/14/23: Creatinine 0.84 mg/dl (0.6-1.2) 01/14/23: Est Cr Clr Drug Dosing 42.2 ml/min 01/14/23: Est GFR ( Amer) 76.1 ml/min 01/14/23: Est GFR (Non-Af Amer) 65.6 ml/min 01/14/23: BUN/Creatinine Ratio 20.2 (10-20) H 01/14/23: Glucose 113 mg/dl (70-99(Fasting)) H 01/14/23: Calcium 10.2 mg/dl (8.5-10.1) H 01/14/23: Phosphorus 3.1 mg/dl (2.5-4.9) 01/14/23: Magnesium 1.7 mg/dl (1.7-2.4) 01/14/23: Total Bilirubin 0.6 mg/dl (0.2-1.0) 01/14/23: AST 22 U/L (13-39) 01/14/23: ALT 13 U/L (7-52) 02/25/23 21:27 Alkaline Phosphatase 57 U/L (34-104) 01/14/23 21:27 Troponin I High Sens 7.8 pg/ml (0-14) 01/14/23 21: Total Protein 8.1 gm/dl (6.0-8.3) 01/14/23 21: Albumin 4.5 gm/dl (3.4-5.0) 01/14/23 21: Globulin 3.6 gm/dl (2.5-4.0) 01/14/23 21: Albumin/Globulin Ratio 1.3 (0.9-2) 01/14/23 21:27 SARS-CoV-2, RNA, NAAT NEGATIVE (NEGATIVE) 01/14/23 21: Diagnostic Findings Chest x-rayby my interpretation, image with extensive hardware from prior spinal surgeries. Normal cardiac shadow, normal lung parenchyma, no obvious i nfiltrate/edema/pneumothorax ECG Additional Comments: EKGby my study reveals sinus rhythm at 93 bpm with new PACs when compared to prior study from 2019, left axis deviation, OK = 152, QRS = 84, QTc = 455 Code Status & VTE Plan VTE Prophylaxis Plan VTE Prophylaxis will be ordered: No PG Care Time/CCT Total # of Minutes Spent Total Time Spent with Patient: Total time spent is greater than 50% in coordination of care (as documented) at patient's floor/unit and/or counseling patient: Coding Level of Care Code 93994 INT INP/OBS CARE 2/55MIN Diagnoses Left-sided chest pain R07.9 Hypertensive urgency I16.0 GERD (gastroesophageal reflux disease) K21.9
[2023-01-15] MEDS ORDERED: ACETAMINOPHEN 325 MG TAB PO PRN (01:04)
[2023-01-15] MEDS: ALUMINUM/MAGNESIUM SUSP 30 ML UDC PO PRN ×2 (01:08→08:05)
[2023-01-15 02:09] LABS: Magnesium 1.7 mg/dl (1.7-2.4)
[2023-01-15 02:15] LABS: Phosphorus 3.1 mg/dl (2.5-4.9)
[2023-01-15 07:48] LABS: BUN Creatinine Ratio 18.7 (10-20); Calcium 9.2 mg/dl (8.5-10.1); Creatinine Clr Calc Pharmacy 47.3 ml/min; Est GFR (African American) 87.3 ml/min; Est GFR (Non-African American) 75.3 ml/min; Potassium 3.8 mmol/L (3.5-5.1)
[2023-01-15 07:56] LABS: Troponin I High Sensitivity 13.7 pg/ml (0-14)
[2023-01-15] MEDS ORDERED: FUROSEMIDE 20 MG TAB PO SCH (09:00)
[2023-01-15] MEDS ORDERED: ASPIRIN 81 MG ECTAB PO SCH (09:00)
--- NOTE | 2023-01-15 09:00 | XRay Report ---
XR chest 1V portable HISTORY: Chest pain, nonspecific COMPARISON: Chest 05/08/2020. FINDINGS: The lungs are clear. Cardiac silhouette is normal in size. No pleural effusions. No pneumot horax. Scoliosis and thoracic spinal rods are again noted. These remain unchanged. IMPRESSION: No significant change compared to the prior study. No acute process. ACT 112: Negative or not required by law. Electronically signed by: Roscoe Barrios M.D. 01/15/2023 8:58 AM
--- NOTE | 2023-01-15 10:48 | Electrocardiogram Report ---
Test Reason : Blood Pressure : / mmHG Vent. Rate : 093 BPM Atrial Rate : 093 BPM P-R Int : 152 ms QRS Dur : 084 ms QT Int : 366 ms P-R-T Axes : 060 -66 025 degrees QTc Int : 455 ms Poor data quality, interpretation may be adversely affected Sinus rhythm with Premature atrial complexes Left axis deviation Abnormal ECG When compared with ECG of 21-APR-2020 17:13, Premature atrial complexes are now Present Confirmed by Maxi Tubbs ([id number]) on 01/15/2023 10:48:28 AM Referred By: REFERRED SELF Confirmed By:Maxi Tubbs
--- NOTE | 2023-01-15 12:08 | Discharge Summary ---
Date of Service January 15, 2023 Admission HPI Per Admitting Provider Jaelyn Xie is a pleasant 82-year-old female with history of hypertension, GERD, prior CVA presenting with left-sided chest pain and hypertensive urgency. Patient reports intermittent left-sided chest burning ongoing for the last several weeks. Sensation is nonexertional, nonpleuritic, non-positional. Daughter is at bedside and assists with details of history. Patient experienced the left-sided chest burning intermittently throughout the day today. The sensation lasts several minutes then resolves on its own. Patient feels that it is brought on by stressful situations and anxiety and is often relieved by speaking with her daughter and trying to calm herself. She has tried baking soda as well as apple cider vinegar and honey to help with her heartburn. She does experience some relief with these remedies. Daughter states that patient has longstanding history of this left chest burning. Oftentimes brought on by food, specifically onions. She feels that it is worsened by anxiety. Tonight's episode was possibly more severe than prior episodes of chest burning and anxiety. Patient denies fever, chills, headache, visual changes. She has slight shortness of breath. Denies palpitations, abdominal pain, nausea, vomiting, diarrhea, constipation. Patient is exquisitely sensitive to medications. She has multiple allergies listed. She has tried to take several agents at home for her heartburn/chest burning including Tums and Pepcid. She often develops dizziness or other side effects when she takes new medications. In regards to patient's blood pressurehas been difficult to control due to to multiple medication side effects. She is presently on lisinopril 40 mg p.o. daily which she tolerates well. Her medication was recently changed from a.m. to p.m. to help with any side effects that may occur. Patient reports compliance with her medications. She did not miss any doses. Denies stimulant use, excess caffeine, cold medicine. Upon arrival to the ER patient markedly hypertensive with blood pressure of 203/131. She was administered her evening dose of lisinopril 40 mg at 22: 19. She is still experiencing the chest burning at this time. She reports that it was worsened when she was told by the ER attending that she needed to stay overnight in the hospital. Patient is very active and independent. She exercises frequently and walks every day. She never experiences exertional chest pain or dyspnea. She has no known history of coronary artery disease. No prior catheterizations. She had a stress test many years ago which was reportedly unremarkable.. ER course: Half an inch of Nitropaste Aspirin 324 mg Lisinopril 40 mg Principal Diagnosis GERD, costochondritis Discharge Exam Constitutional: well-appearing, no acute distress HEENT: NCAT, no conjunctival injection CV: regular rhythm, no murmur appreciated, extremities well-perfused, no LE edema Resp: CTABL, no wheezes/rales/rhonchi appreciated, no increased work of breathing GI: soft, nondistended, nontender, BS normoactive MSK: no gross deformities appreciated; tenderness to palpation left anterior ribs 4/5 Skin: warm, dry, no rash appreciated Neuro: alert, oriented, no focal neurologic deficit appreciated Discharge Data Allergies Allergy/AdvReac Type Severity Reaction Status Date / Time Sulfa (Sulfonamide Allergy Unknown Unknown Verified 01/14/23 22:28 Antibiotics) reaction amlodipine AdvReac RECURRENT Verified 01/14/23 22:28 LLQ PAIN dicyclomine AdvReac GI Verified 01/14/23 22:28 hydrochlorothiazide AdvReac HYPONATRIMI Verified 01/14/23 22:28 A irbesartan AdvReac GI Verified 01/14/23 22:28 NSAIDS (Non-Steroidal AdvReac GI Verified 01/14/23 22:28 Anti-Inflamma simvastatin AdvReac Muscle Pain Verified 01/14/23 22:28 Consultations 01/15/23 00:15 ED Decision to Admit Stat Ordered Studies Laboratory Results WBC 7.43 K/ul (4.8-10.8) 01/14/23 21: RBC 4.15 M/uL (4.20-5.40) L 01/14/23 21: Hgb 13.2 g/dl (12.0-16.0) 01/14/23 21: Hct 39.0 % (37.0-47.0) 01/14/23 21: MCV 94.0 fL (80.0-100.0) 01/14/23 21: MCH 31.8 pg (25.0-34.0) 01/14/23 21: MCHC 33.8 g/dL (32.0-36.0) 01/14/23: RDW Std Deviation 43.8 fL (36.4-46.3) 01/14/23 RDW Coeff of Denys 12.6 % (11.5-14.5) 01/14/23 Plt Count 260 K/uL (130-400) 01/14/23: MPV 10.1 fL (9.4-12.4) 01/14/23: Immature Gran % (Auto) 0.3 % 01/14/23: Neut % (Auto) 64.8 % 01/14/23: Lymph % (Auto) 23.7 % 01/14/23: [place] % (Auto) 10.0 % 01/14/23: Eos % (Auto) 0.5 % 01/14/23 Baso % (Auto) 0.7 % 01/14/23 Neut # (Auto) 4.82 K/uL (1.40-6.50) 01/14/23 Lymph # (Auto) 1.76 K/uL (1.2-3.4) 01/14/23: [place] # (Auto) 0.74 K/uL (0.11-0.59) H 01/14/23 Eos # (Auto) 0.04 K/uL (0-0.50) 01/14/23 Baso # (Auto) 0.05 K/uL (0-0.2) 01/14/23 Immature Gran # (Auto) 0.02 K/uL (0.01-0.20) 01/14/23: PT 11.2 Seconds (9.0-12.0) 01/14/23: INR 1.1 (0.9-1.1) 01/14/23 APTT 25.7 Seconds (21.0-31.0) 01/14/23: PTT Ratio 0.9 01/14/23: Sodium 136 mmol/L (136-145) 01/15/23 06:44 Potassium 3.8 mmol/L (3.5-5.1) 01/15/23 06:44 Chloride 101 mmol/L (98-107) 01/15/23 06:44 Carbon Dioxide 30 mmol/L (21-32) 01/15/23 06:44 Anion Gap 5 (3-11) 01/15/23 06:44 BUN 14 mg/dl (6-23) 01/15/23 06:44 Creatinine 0.75 mg/dl (0.6-1.2) 01/15/23 06:44 Est Cr Clr Drug Dosing 47.3 ml/min 01/15/23 06:44 Est GFR ( Amer) 87.3 ml/min 01/15/23 06:44 Est GFR (Non-Af Amer) 75.3 ml/min 01/15/23 06:44 BUN/Creatinine Ratio 18.7 (10-20) 01/15/23 06:44 Glucose 100 mg/dl (70-99(Fasting)) H 01/15/23 06:44 Calcium 9.2 mg/dl (8.5-10.1) 01/15/23 06:44 Phosphorus 3.1 mg/dl (2.5-4.9) 01/14/23 21: Magnesium 1.7 mg/dl (1.7-2.4) 01/14/23 21:27 Total Bilirubin 0.6 mg/dl (0.2-1.0) 01/14/23 21:27 AST 22 U/L (13-39) 01/14/23 21:27 ALT 13 U/L (7-52) 01/14/23 21:27 Alkaline Phosphatase 57 U/L (34-104) 01/14/23 21:27 Troponin I High Sens 8.0 pg/ml (0-14) D 01/15/23 10:54 Total Protein 8.1 gm/dl (6.0-8.3) 01/14/23 21: Albumin 4.5 gm/dl (3.4-5.0) 01/14/23 21:27 Globulin 3.6 gm/dl (2.5-4.0) 01/14/23 21:27 Albumin/Globulin Ratio 1.3 (0.9-2) 01/14/23 21:27 SARS-CoV-2, RNA, NAAT NEGATIVE (NEGATIVE) 01/14/23 21:27 Impressions Chest X-Ray 01/14/23 21:17 XR chest 1V portable HISTORY: Chest pain, nonspecific COMPARISON: Chest 05/08/2020. FINDINGS: The lungs are clear. Cardiac silhouette is normal in size. No pleural effusions. No pneumothorax. Scoliosis and thoracic spinal rods are again noted. These remain unchanged. IMPRESSION: No significant change compared to the prior study. No acute process. ACT 112: Negative or not required by law. Electronically signed by: Roscoe Barrios M.D. 01/15/2023 8:58 AM Ribs X-Ray 01/15/23 11:44 XR ribs LT min 2V CLINICAL HISTORY: Left sided rib pain COMPARISON STUDY: Chest 01/14/2023 FINDINGS: No acute rib fractures. Mild deformity within the left lateral 10th rib is likely chronic. Scoliosis and thoracic spinal fusion rods are again noted. No left-sided pneumothorax. IMPRESSION: No acute left-sided rib fractures. No pneumothorax. ACT 112: Negative or not required by law. Electronically signed by: Roscoe Barrios M.D. 01/15/2023 1:44 PM Hospital Course (1) Left-sided chest pain: 82-year-old female with history of hypertension and GERD presenting with several weeks, possibly months of intermittent left-sided chest burning. Patient with hypertension otherwise no known risk factors for CAD. Troponin x1 = 7.8. EKG with no acute ischemic changes. Low suspicion for ACS given patient's longstanding duration of symptoms with normal EKG and troponin. Repeat troponin = 13, 8 Continue patient's aspirin 81 mg p.o. every 48 hours - Etiology likely multifactorial. She does have intermittent reflux symptoms. Also has more constant left sided rib pain, that is reproducible on exam. Xray of ribs was negative. Likely costochondritis. (2) Hypertensive urgency: Patient with markedly elevated blood pressure on arrival to 203/131. She was given her evening lisinopril and blood pressure came down. Blood pressures have been elevated (170-150/ 80) , but without signs of HTN emergency Continue lisinopril 40 mg p.o. daily Continue Lasix 10 mg p.o. twice daily Recommend ambulatory blood pressure checks (3) GERD (gastroesophageal reflux disease): Suspect the patient's left-sided chest burning is at least in part secondary to her underlying GERD. She has had a difficult time finding medications that work for this without adverse side effects. Tolerated Maalox as needed, will continue this - Has not tried a PPI in the past, will start on 20mg omeprazole daily Total Time Total Time Spent Total Time Spent (In Minutes): 35 minutes in reviewing the patient's admission studies and labs, evaluating the patient, and documentation Discharge Plan Discharge Items Patient Disposition: Home - Self-Care Reason For Visit: CHEST BURNING, HYPERTENSIVE URGENCY Discharge Diagnosis: GERD Activity: Per Instructions section Non-emergency contact: Primary Care Provider Call non-emergency contact if: you have any medication questions and your symptoms worsen Follow-up/Referrals: Mariza Alcantar, [Primary Care Provider] - Diet: Regular Addtl Attending Provider Instructions: You were admitted to the hospital for left sided chest pain. You had an EKG and lab work done and neither showed any signs of a cardiac cause of your chest pain. We believe that your pain was likely multifactorial being musculoskeletal and from your GERD. We got an x-ray of your ribs that did not show any fractures. For your GERD we sent 2 new prescriptions to your pharmacy. You should take the omeprazole every day, it will take some time for this to start working. The Maalox you can use as needed for reflux symptoms. If you have any issues with either of these medications you should reach out to your primary care doctor. You blood pressure was elevated. You should continue to take your blood pressure medications as you have been. If you have a blood pressure cuff at home, it would be helpful to take your blood pressure a few times this week before your appointment with Dr. Alcantar and bring those readings to the appointment. Sit for 5 minutes before taking your blood pressure. If you were to develop a headache, chest pain, or vision changes with an elevated blood pressure you should call your PCP/go to the ED. A discharge summary will be sent to your primary care physician to ensure continuity of care. Please bring this discharge summary with you to your next office appointment so that your provider can review it at that time. Follow-up appointments: You have an appointment scheduled with Dr. Alcantar on 01/20, please make sure to go to this appointment. Medications: Your medication list has been reviewed and reconciled upon discharge to ensure accuracy and continuity of care. An updated list of all your medications is included with your hospital discharge paperwork. Please review this list closely, and make note of any changes. CONTACT YOUR PRIMARY CARE PROVIDER if you experience any of the following: Any issues with your medications Difficulty following your treatment plan, or difficulty taking medications CALL 911 OR GO TO THE EMERGENCY DEPARTMENT if you experience any of the following: Severe chest pain, or chest pain that radiates (moves) to your jaw or arm Pending Studies at Discharge: No Stand-Alone Forms: My [facility] Medications and DC Order Prescriptions: New MAG-AL 200-200 mg/5 mL Suspension 15 ml PO Q6H PRN (Reason: dyspepsia) 7 Days Qty: 500 0RF omeprazole 20 mg capsule,delayed release(DR/EC) 20 mg PO DAILY Qty: 30 0RF Continued aspirin [Renato Low Dose Aspirin] 81 mg Tablet,Delayed Release (Dr/Ec) 81 mg PO Q OTHER DAY Qty: 0 magnesium 250 mg Tablet 250 mg PO QAM Qty: 0 cholecalciferol (vitamin D3) 2,000 unit Tablet 2,000 unit PO QAM Qty: 0 furosemide 20 mg tablet 10 mg PO BID acetaminophen [Tylenol] 325 mg Tablet 325 mg PO QID PRN (Reason: Pain) lisinopril [Zestril] 40 mg Tablet 40 mg PO QAM Qty: 30 4RF Discharge Orders: Discharge Order (Routine); Ordered 01/15/23 Ordered By: Marlene Davidson Admission Data Admit Date/Time: 01/14/23 23:38 Attending Provider: Osmar Pacheco Admit Provider: Jenna Fairchild Primary Care Provider: Mariza Alcantar Other Providers: Jenna Fairchild Other Interventions: Discharge Summary Assessment (RN) Last Done: 01/15/23 14:22 Supervising Physician Co-Signing Physician Notes I also saw the patient with the resident physician and confirmed tay portions of the history and the physical examination. I agree with the impression and plan as noted in the resident documentation, and as indicated below. Upon our midmorning exam, the patient was lying semireclined in bed. She stated that she felt better. She still notes a left anterior chest wall tenderness, which is worse with palpation; the epigastric burning that she had experienced last night is not present upon our exam. She is interested in discharge. Exam 152/81, 76, 20, 36.6, 90% room air She is pleasant alert and oriented. No distress appreciated. Heart is regular rate and rhythm. Lungs are clear with nonlabored respirations. She does have a area of reproducible tenderness in the left upper anterior chest wall, extending laterally. Abdomen soft nontender no epigastric tenderness appreciated. Data Hemoglobin 13.2, platelet count 260 Sodium 136, potassium 3.8, BUN 14, creatinine 0.75 High-sensitivity troponin negative x3 Imaging A chest x-ray showed no acute process. Left anterior rib series showed no fracture or costal lesion. Impression and plan Noncardiac chest pain GERD Patient's pain was atypical for cardiac, and it was reproducible with palpation. Long duration and lack of associated signs and symptoms, plus normal EKG and troponin negative x3, all reassuring Suspect a lot of costochondritis/musculoskeletal injury Discussed conservative management Patient's had multiple intolerances with regards to her gastroesophageal reflux Trial PPI May use Maalox as needed Patient has outpatient follow-up with her PCP at the end of this upcoming week. This is appropriate follow-up. The patient is anticipating discharge today and given the above work-up, this seems appropriate Resident Activity Tracking Resident Involvement: Resident Care Provided Care Provided: Adult Hospital Medicine
--- NOTE | 2023-01-15 13:46 | XRay Report ---
XR ribs LT min 2V CLINICAL HISTORY: Left sided rib pain COMPARISON STUDY: Chest 01/14/2023 FINDINGS: No acute rib fractures. Mild deformity within the left lateral 10th rib is likely chronic. Scoliosis and thoracic spinal fusion rods are again noted. No left-sided pneumothorax. IMPRESSION: No acute left-sided rib fractures. No pneumothorax. ACT 112: Negative or not required by law. Electronically signed by: Roscoe Barrios M.D. 01/15/2023 1:44 PM
[2023-01-15] MEDS ORDERED: lisinopril 40 MG TAB PO SCH (21:00)
== END 2023-01-15 14:52 | disposition home or self-care (01) ==
LOC: ED 21:13 → INTOOBSV 23:38 → 2N 23:38 → SUATTDRO 23:38 → 2N 01-15 00:35